=== PATIENT | male | born 1940 | race Caucasian/White ===

== ENCOUNTER 2020-04-09 14:08 | Outpatient (REF) | payer MEDICARE, BC, OTHER, SELFPAY ==
--- NOTE | 2020-04-09 | XR_ITS ---
EXAMINATION: XR CHEST 2 VIEWS CLINICAL INFORMATION: COPD COMPARISON: 03/30/2015 TECHNIQUE: PA and lateral radiographs of the chest. FINDINGS: The lungs are hyperinflated compatible with chronic obstructive pulmonary disease. No focal consolidation, pulmonary edema, or pleural effusion. Stable cardiomediastinal silhouette status post valve repair. IMPRESSION: COPD. No acute cardiopulmonary findings.
== END 2020-04-09 14:09 | disposition home or self-care (01) ==
LOC: HO.XRAY 14:08
PROVIDERS: PCP Internal Medicine Endocrinology, Diabetes & Metabolism; Visit Provider Internal Medicine Critical Care Medicine
DX: J44.9 Chronic obstructive pulmonary disease, unspecified (principal)
CPT/HCPCS: 71046

== ENCOUNTER 2021-07-13 13:54 | Outpatient (REF) | payer MEDICARE, BC, OTHER, SELFPAY | END 2021-07-13 13:55 | disposition home or self-care (01) | LOC: HO.HMGCLDS 13:54 | PROVIDERS: Visit Provider Internal Medicine | DX: Z20.822 Contact with and (suspected) exposure to COVID-19 (principal) | CPT/HCPCS: C9803; U0003; U0005 ==

== ENCOUNTER 2022-01-06 17:58 | Emergency (ER) | payer MEDICARE, BC, OTHER, SELFPAY ==
[2022-01-06 19:51] VITALS: BP 157/72; PULSE 66; RESP 18; TEMP 36.5; O2SAT 98; BMI 20.5
[2022-01-06 21:26] LABS: MANUAL DIFF FLAG NO
[2022-01-06 21:28] LABS: Basophils Absolute Auto 0.1 X10*3/uL (0.0-0.2); Basophils Percent Auto 0.6 % (0-2); Eosinophils Absolute Auto 0.3 X10*3/uL (0.0-0.4); Eosinophils Percent Auto 3.7 % (0-4); Hematocrit 44.7 % (42.0-52.0); Hemoglobin 14.8 g/dl (14.0-18.0); Imm Gran Abs Auto 0.03 X10*3/uL (0.00-0.03); Imm Gran Pct Auto 0.3 % (0.0-0.4); Lymphocytes Absolute Auto 2.6 X10*3/uL (1.2-4.9); Lymphocytes Percent Auto 29.5 % (20-40); Mean Corpuscular HGB Conc 33.1 g/dl (31.0-36.0); Mean Corpuscular Hemoglobin 29.5 pg (27.0-33.0); Mean Corpuscular Volume 89.2 fL (80.0-98.0); Mean Platelet Volume 10.4 fL (9.4-12.4); Monocytes Absolute Auto 0.8 X10*3/uL (0.1-1.2); Monocytes Percent Auto 9.2 % (2-11); Neutrophils Percent Auto 56.7 % (45-73); Platelet Count 166 X10*3/uL (160-400); Red Blood Count 5.01 X10*6/uL (4.60-5.80); Red Cell Distribution Width 14.8 % (11.0-16.0); White Blood Count 8.8 X10*3/uL (4.8-10.8)
[2022-01-06 21:52] LABS: Alanine Aminotransferase 19 U/L (0-40); Albumin Level 3.6 g/dL (3.5-5.0); Alkaline Phosphatase 132 U/L (39-117); Anion Gap 13 (12-20); Aspartate Amino Transferase 18 U/L (5-37); Bilirubin Total 0.6 mg/dL (0.0-1.0); Blood Urea Nitrogen 17 mg/dL (9-16); Calcium 8.6 mg/dL (8.4-10.2); Carbon Dioxide 27 mmol/L (22-29); Chloride 105 mmol/L (96-108); Creatinine Clr Calc Pharmacy 35.9; Estimated Glomerular Filt Rate 56; Glucose Random 89 mg/dL (60-115); Sodium 140 mmol/L (135-145); Total Protein 6.4 g/dL (6.5-8.0)
[2022-01-06 22:35] VITALS: BP 173/89; PULSE 68; RESP 17; TEMP 36.5; O2SAT 98
--- NOTE | 2022-01-06 23:15 | ED_ITS ---
HPI - Skin/Abscess/Foreign Bdy General Chief complaint: Skin/Abscess/Foreign Body Stated complaint: bump, infection right forearm Time Seen by Provider: 01/06/22 22:55 Source: patient Mode of arrival: ambulatory Limitations: no limitations History of Present Illness HPI narrative: Patient comes to the emergency room complaining of redness and a pimple like structure in his right forearm. Patient denies fever chills. Patient denies any injuries. Patient states that he has tried to drain it, he has seen small amounts of pus. Related Data Previous Rx's Medication Instructions Recorded cephalexin 500 mg capsule 500 mg PO BID #14 caps 01/06/22 doxycycline hyclate 100 mg capsule 100 mg PO BID #14 caps 01/06/22 Allergies Allergy/AdvReac Type Severity Reaction Status Date / Time SEASONAL ALLERGIES Allergy Unknown UNKNOWN Uncoded 03/26/20 14:59 Review of Systems Review of Systems: Constitutional : No Weight loss, No Fever, No Chills, No Night Sweats, No Fatigue, No Malaise ENT/Mouth : No Hearing loss, No Ear Pain, No Nasal Congestion, No Sinus Pain, No Hoarseness, No sore throat, No Rhinorrhea, No Swallowing Difficulty Eyes: No Eye Pain, No Swelling, No Redness, No Foreign Body, No Discharge, No Vision Changes Cardiovascular : No Chest Pain, No SOB, No Dyspnea on Exertion, No Orthopnea, No Edema, No Palpitations Respiratory : No Cough, No Sputum, No Wheezing, No Smoke Exposure, No Dyspnea Gastrointestinal : No Nausea, No Vomiting, No Diarrhea, No Constipation, No abdominal Pain, No Hematochezia, No Melena Genitourinary : no irregular bleeding, No Dysuria, No Urinary Frequency, No Hematuria, No Urinary Incontinence, No Urgency, No Flank Pain, No Urinary Flow Changes, No Hesitancy Musculoskeletal : No joint pain, No Myalgias, No Joint Swelling Skin : Patient has a small abscess in the right forearm Neuro : No Weakness, No Numbness, No Paresthesias, No Loss of Consciousness, No Dizziness, No Headache Psych : No Anxiety/Panic, No Depression, No SI/HI/AH/VH, No Social Issues, Heme/Lymph: No Bruising, No Bleeding,No Lymphadenopathy Endocrine : No Polyuria, No Polydipsia, No Temperature Intolerance PMFSH Social History Social History Advance Directives: No Advance Directives Information Provided: No Physical Exam Vital Signs: Vital Signs: Last Vital Signs Temp 97.7 F 01/06/22 22:35 Pulse 68 01/06/22 22:35 Resp 17 01/06/22 22:35 BP 173/89 H 01/06/22 22:35 Pulse Ox 98 01/06/22 22:35 O2 Del Method 01/06/22 22:35 BMI result Body Mass Index 20.5 Const: Other: Appearance: Alert. Oriented X3. No acute distress. Eyes: Pupils equal, round and reactive to light. ENT: Pharynx normal. Neck: Normal inspection. Neck supple. No lymph nodes noted. No crepitus CVS: Normal heart rate and rhythm. Pulses normal. Normal S1 and S2 Respiratory: No respiratory distress. Breath sounds normal. No Wheezing. No rales Abdomen: Soft and nontender. No rigidity. No distention. Skin: Skin warm and dry. Patient has 4 cm x 4 cm area of erythema, in the middle there is a 0.3 cm eschar Extremities: No lower extremity edema. No Lacerations. No Rash Neuro: Oriented X 3. No motor deficit. No sensory deficit. Moving all extremities. No slurred speech. CN 2 through 12 grossly intact Psych: calm, cooperative, normal affect Course Course Course Narrative: I discussed with the patient that he likely has a small abscess developing. Patient decided to have the abscess unroofed without any lidocaine. Small amount of pus was extracted. Patient was given 1 dose of doxycycline and K eflex. Patient has no fever or chills. Labs were obtained on arrival at triage, white blood cell count within normal limits. Sepsis not suspected. MDM - Skin/Abscess/Foreign Bdy Lab Data Result diagrams: 01/06/22 21:11 01/06/22 21:11 Labs: Lab Results 01/06/22 01/06/22 Range/Units 21:11 21:11 WBC 8.8 (4.8-10.8) X10*3/uL RBC 5.01 (4.60-5.80) X10*6/uL Hgb 14.8 (14.0-18.0) g/dl Hct 44.7 (42.0-52.0) % MCV 89.2 (80.0-98.0) fL MCH 29.5 (27.0-33.0) pg MCHC 33.1 (31.0-36.0) g/dl RDW 14.8 (11.0-16.0) % Plt Count 166 (160-400) X10*3/uL MPV 10.4 (9.4-12.4) fL Immature Gran % (Auto) 0.3 (0.0-0.4) % Neut % (Auto) 56.7 (45-73) % Lymph % (Auto) 29.5 (20-40) % Bradford % (Auto) 9.2 (2-11) % Eos % (Auto) 3.7 (0-4) % Baso % (Auto) 0.6 (0-2) % Lymph # (Auto) 2.6 (1.2-4.9) X10*3/uL Bradford # (Auto) 0.8 (0.1-1.2) X10*3/uL Eos # (Auto) 0.3 (0.0-0.4) X10*3/uL Baso # (Auto) 0.1 (0.0-0.2) X10*3/uL Abs Immat Gran (auto) 0.03 (0.00-0.03) X10*3/uL Absolute Neuts (auto) 5.0 (2.0-8.3) x10*3/uL Absolute Nucleated RBC 0.000 (0.0-0.012) X10*3/uL Nucleated RBC % (auto) 0.0 (0.0-0.2) /100WBC Sodium 140 (135-145) mmol/L Potassium 5.0 (3.3-5.1) mmol/L Chloride 105 (96-108) mmol/L Carbon Dioxide 27 (22-29) mmol/L Anion Gap 13 (12-20) BUN 17 H (9-16) mg/dL Creatinine 1.24 (0.5-1.4) mg/dL Estim Creat Clear Calc 35.9 Estimated GFR 56 Random Glucose 89 (60-115) mg/dL Calcium 8.6 (8.4-10.2) mg/dL Total Bilirubin 0.6 (0.0-1.0) mg/dL AST 18 (5-37) U/L ALT 19 (0-40) U/L Alkaline Phosphatase 132 H (39-117) U/L Total Protein 6.4 L (6.5-8.0) g/dL Albumin 3.6 (3.5-5.0) g/dL Discharge Plan Discharge Clinical Impression: Abscess of skin or subcutaneous tissue Patient Disposition: Home, Self-Care Instructions: Abscess (ED) Additional Instructions: Please follow-up with your primary care physician tomorrow. If you have any worsening or new symptoms, please return to the emergency room or call 911 Prescriptions: New cephalexin 500 mg capsule 500 mg PO BID Qty: 14 0RF doxycycline hyclate 100 mg capsule 100 mg PO BID Qty: 14 0RF
[2022-01-06] MEDS: cephALEXin 500 MG CAPSULE PO (23:36)
== END 2022-01-06 23:40 | disposition home or self-care (01) ==
PROVIDERS: Emergency Provider Emergency Medicine; PCP Internal Medicine Endocrinology, Diabetes & Metabolism
DX: L02.413 Cutaneous abscess of right upper limb (principal)
CPT/HCPCS: 36415; 80053; 85025; 99282; 99283

== ENCOUNTER 2023-04-25 20:25 | Emergency (ER) | payer MEDICARE, BC, OTHER, SELFPAY ==
[2023-04-25 20:39] VITALS: BP 143/83; PULSE 110; RESP 20; TEMP 36.3; O2SAT 93; BMI 19.1
--- NOTE | 2023-04-25 20:44 | ED_ITS ---
HPI - General Adult General Chief complaint: General Medical Stated complaint: Multiple complaints Time Seen by Provider: 04/25/23 23:14 Source: patient Mode of arrival: ambulatory Limitations: no limitations History of Present Illness HPI narrative: Patient with no significant past medical history been constipated for last 1 week and not eating much also has problem in urination for last couple of weeks in the ER patient had a good bowel movement but still has problem urinating bladder scan was done which showed 600 cc of urine but patient would not only 30 cc no significant abdominal pain no fever no chills no flank pain Related Data Previous Rx's Medication Instructions Recorded cephalexin 500 mg capsule 500 mg PO BID #14 caps 01/06/22 doxycycline hyclate 100 mg capsule 100 mg PO BID #14 caps 01/06/22 tamsulosin 0.4 mg capsule (Flomax) 0.4 mg PO BEDTIME #30 caps 04/26/23 Allergies Allergy/AdvReac Type Severity Reaction Status Date / Time SEASONAL ALLERGIES Allergy Unknown UNKNOWN Uncoded 03/26/20 14:59 Review of Systems 2 Review of Systems: Yes all other systems are reviewed and are negative [facility] Social History Social History Advance Directives: No Advance Directives Information Provided: No Physical Exam ED Vital Signs: Vital Signs - 24 hr 04/25/23 20:39 04/25/23 23:37 Temperature 97.3 F 98.3 F Pulse Rate 110 H 81 Respiratory Rate 20 18 Blood Pressure 143/83 H 136/73 Pulse Oximetry 93 99 Oxygen Delivery Method Room Air Room Air BMI result Body Mass Index 19.1 Appearance: Alert. Oriented X3. No acute distress. Eyes: PERRLA, No Nystagmus ENT: Pharynx normal. Oral Mucosa moist Neck: Normal inspection. Neck supple. CVS: Normal heart rate and rhythm. Pulses normal. Respiratory: No respiratory distress. Equal air entry bilateral, no wheezing/rales/rhonchi Abdomen: Soft and nontender. Bowel sounds are present, no mass palpable, no CVA tenderness rectal: Enlarged nontender prostate Skin: Skin warm and dry. Normal skin color. Normal skin turgor. Extremities: No lower extremity edema. No calf tenderness Neuro: Oriented X 3. No motor deficit. No sensory deficit.No cerebellar signs , cranial nerves II-XII intact Course Course Course Narrative: This is an RME: Additional HPI, ROS, PE not included below will be deferred to primary provider. 82 year old male presents w./ inability to void X 1 week suprapubic abd discomfort and rash in genital region. Was tx for rash not gone yet. Reports fatigue and maliase. No fever, chills, cp, sob Plan- labs, urine Medications Administered Discontinued Medications Generic Name Dose Route Start Last Admin Trade Name Freq PRN Reason Stop Dose Admin Lidocaine HCl 10 ml 04/26/23 00:50 04/26/23 00:59 Lidocaine Hcl 2 % Urojet 10 Ml Jel.Pf.Christen TOPICAL 04/26/23 00:51 10 ml ONCE ONE Administration Tamsulosin HCl 0.4 mg 04/26/23 00:33 04/26/23 00:59 Tamsulosin Hcl 0.4 Mg Capsule PO 04/26/23 00:34 0.4 mg ONCE ONE Administration Procedures Catheter Insertion (Urinary) Date of insertion: 04/26/23 Time of insertion: 01:30 Reason for placing indwelling catheter: Acute urinary retention Bladder scan/ultrasound used before catheterization: Yes Estimated amount of urine (mLs): 600 Antiseptic solution prep: Povidone-Iodine Topical anesthesia used: Yes Catheter type/location: Urethral Size (Croatian): 18 Catheter balloon size (mL): 10 Catheter balloon amount: 10 Results: successfully catheterized-immediate flow and other (Guidewire was used to assist with placement of Renae catheter) Procedure performed: with complications Complications: Minor bleed Comment: 800 cc of urine drained Medical Decision Making Medical Decision Making [facility] Narrative: Patient had a good bowel movement in the ER retaining urine more than [address] Renae catheter Differential Diagnosis Differential Diagnoses: The differential diagnosis associated with the presentation includes Urinary retention/BPH/prostatitis/UTI Lab Data [facility] Lab Attestation statement: I reviewed the patient's lab results. 04/25/23 23:29 04/25/23 23:29 Labs: Lab Results 04/25/23 04/26/23 Range/Units 23:29 00:35 WBC 8.4 (4.8-10.8) X10*3/uL RBC 5.29 (4.60-5.80) X10*6/uL Hgb 15.3 (14.0-18.0) g/dl Hct 45.7 (42.0-52.0) % MCV 86.4 (80.0-98.0) fL MCH 28.9 (27.0-33.0) pg MCHC 33.5 (31.0-36.0) g/dl RDW 13.9 (11.0-16.0) % Plt Count 248 D (160-400) X10*3/uL MPV 9.0 L (9.4-12.4) fL Immature Gran % (Auto) 0.2 (0.0-0.4) % Neut % (Auto) 69.2 (45-73) % Lymph % (Auto) 22.4 (20-40) % Giles % (Auto) 7.3 (2-11) % Eos % (Auto) 0.2 (0-4) % Baso % (Auto) 0.7 (0-2) % Lymph # (Auto) 1.9 (1.2-4.9) X10*3/uL Giles # (Auto) 0.6 (0.1-1.2) X10*3/uL Eos # (Auto) 0.0 (0.0-0.4) X10*3/uL Baso # (Auto) 0.1 (0.0-0.2) X10*3/uL Abs Immat Gran (auto) 0.02 (0.00-0.03) X10*3/uL Absolute Neuts (auto) 5.8 (2.0-8.3) x10*3/uL Absolute Nucleated RBC 0.000 (0.0-0.012) X10*3/uL Nucleated RBC % (auto) 0.0 (0.0-0.2) /100WBC Sodium 139 (135-145) mmol/L Potassium 4.2 (3.3-5.1) mmol/L Chloride 103 (96-108) mmol/L Carbon Dioxide 26 (22-29) mmol/L Anion Gap 14 (12-20) BUN 32 H (9-16) mg/dL Creatinine 1.35 (0.5-1.4) mg/dL Estim Creat Clear Calc 31.1 Estimated GFR 51 Random Glucose 125 H (60-115) mg/dL Calcium 9.1 (8.4-10.2) mg/dL Total Bilirubin 0.6 (0.0-1.0) mg/dL AST 18 (5-37) U/L ALT 18 (0-40) U/L Alkaline Phosphatase 109 (39-117) U/L Total Protein 6.5 (6.5-8.0) g/dL Albumin 3.3 L (3.5-5.0) g/dL Lipase 50 (8-78) U/L Urine Color Yellow Urine Appearance Clear Urine pH 5.5 (5.0-9.0) Ur Specific Mcintire 1.020 (1.005-1.025) Urine Protein Trace (Neg-Trace) mg/dL Urine Glucose (UA) Negative (Negative) mg/dL Urine Ketones Negative (Negative) mg/dL Urine Blood Negative (Negative) Urine Nitrite Negative (Negative) Ur Leukocyte Esterase Trace H (Negative) Urine RBC 0-2 (0-2) /HPF Urine WBC 0-5 (0-5) /HPF Ur Squamous Epith Cells 0-2 (0-2) /HPF Urine Bacteria None Seen (None Seen) Hyaline Casts 3-5 (0-2) /LPF COVID-19 (GURJIT) Negative (Negative) COVID-19 Clin Com See Note Discharge Plan Discharge Clinical Impression: Acute urinary retention, Benign prostatic hyperplasia Patient Disposition: Home, Self-Care Instructions: Enlarged Prostate (BPH) (ED), Renae Catheter Placement and Care (ED) Additional Instructions: Care of Renae catheter as advised Medication for per enlarged prostate daily Follow-up with urologist Prescriptions: New tamsulosin [Flomax] 0.4 mg capsule 0.4 mg PO BEDTIME Qty: 30 0RF No Action cephalexin 500 mg capsule 500 mg PO BID Qty: 14 0RF doxycycline hyclate 100 mg capsule 100 mg PO BID Qty: 14 0RF Referrals: Rainer Pardo MD [Physician] - 1 week
[2023-04-25 23:34] LABS: Basophils Absolute Auto 0.1 X10*3/uL (0.0-0.2); Basophils Percent Auto 0.7 % (0-2); Eosinophils Percent Auto 0.2 % (0-4); Hematocrit 45.7 % (42.0-52.0); Hemoglobin 15.3 g/dl (14.0-18.0); Imm Gran Abs Auto 0.02 X10*3/uL (0.00-0.03); Imm Gran Pct Auto 0.2 % (0.0-0.4); Lymphocytes Absolute Auto 1.9 X10*3/uL (1.2-4.9); Lymphocytes Percent Auto 22.4 % (20-40); Mean Corpuscular HGB Conc 33.5 g/dl (31.0-36.0); Mean Corpuscular Hemoglobin 28.9 pg (27.0-33.0); Mean Corpuscular Volume 86.4 fL (80.0-98.0); Monocytes Absolute Auto 0.6 X10*3/uL (0.1-1.2); Monocytes Percent Auto 7.3 % (2-11); Neutrophils Absolute Auto 5.8 x10*3/uL (2.0-8.3); Neutrophils Percent Auto 69.2 % (45-73); Platelet Count 248 X10*3/uL (160-400); Red Blood Count 5.29 X10*6/uL (4.60-5.80); Red Cell Distribution Width 13.9 % (11.0-16.0); White Blood Count 8.4 X10*3/uL (4.8-10.8)
[2023-04-25 23:35] LABS: MANUAL DIFF FLAG NO
[2023-04-25 23:37] VITALS: BP 136/73; PULSE 81; RESP 18; TEMP 36.8; O2SAT 99
[2023-04-25 23:48] LABS: Alanine Aminotransferase 18 U/L (0-40); Albumin Level 3.3 g/dL (3.5-5.0); Alkaline Phosphatase 109 U/L (39-117); Anion Gap 14 (12-20); Aspartate Amino Transferase 18 U/L (5-37); Bilirubin Total 0.6 mg/dL (0.0-1.0); Blood Urea Nitrogen 32 mg/dL (9-16); COVID-19 Test Negative (Negative); Calcium 9.1 mg/dL (8.4-10.2); Carbon Dioxide 26 mmol/L (22-29); Chloride 103 mmol/L (96-108); Creatinine Clr Calc Pharmacy 31.1; Estimated Glomerular Filt Rate 51; Glucose Random 125 mg/dL (60-115); IDNOW Serial# BCCEAD1C; Lipase 50 U/L (8-78); Potassium 4.2 mmol/L (3.3-5.1); Sodium 139 mmol/L (135-145); Total Protein 6.5 g/dL (6.5-8.0)
[2023-04-26 00:44] LABS: Appearance Urine Clear; Color Urine Yellow; Glucose Urine UA Negative (Negative); Leukocyte Esterase Urine Trace (Negative); Nitrite Urine Negative (Negative); PH 5.5 (5.0-9.0); UMIC TRIGGER UACC YES; Urine Blood Negative (Negative); Urine Ketones Negative (Negative); Urine Protein Trace mg/dL (Neg-Trace)
[2023-04-26 00:49] LABS: Bacteria Urine None Seen (None Seen); RBC Urine 0-2 /HPF (0-2); Squamous Epithelial Cell Urine 0-2 /HPF (0-2); WBC Urine 0-5 /HPF (0-5)
[2023-04-26] MEDS: Tamsulosin HCL 0.4 MG CAPSULE PO (00:59)
[2023-04-26] MEDS: Lidocaine HCl 2 % Urojet 10 ML JEL.PF.APP TOPICAL (00:59)
--- NOTE | 2023-04-26 01:21 | PC.NURSE ---
unable instill leyva cath. Dr. ramírez
--- NOTE | 2023-04-26 01:36 | PC.NURSE ---
leyva cath placed by Dr. Duval
--- NOTE | 2023-04-26 02:40 | PC.NURSE ---
pt tolerating leyva cath
== END 2023-04-26 03:03 | disposition home or self-care (01) ==
PROVIDERS: Physician Assistant; Emergency Provider Internal Medicine; PCP Internal Medicine Endocrinology, Diabetes & Metabolism
DX: R33.9 Retention of urine, unspecified (principal); N40.0 Benign prostatic hyperplasia without lower urinary tract symptoms; Z11.52 Encounter for screening for COVID-19
CPT/HCPCS: 51702; 51798; 80053; 81001; 83690; 85025; 87635; 99283; 99284

== ENCOUNTER 2023-05-10 08:41 | Outpatient (AMB) | payer MEDICARE, BC, OTHER, SELFPAY ==
--- NOTE | 2023-05-10 08:44 | A.OFFVIS_ITS ---
Intake Intake Visit Reasons: Voiding trial Intake Note: New Patient presents for initial visit for voiding trial/retention Urology Medications: tamsulosin Blood Thinner:none Brake Press Operator Required: No Accompanied by: Unknown Allergies SEASONAL ALLERGIES Allergy (Unknown, Uncoded 05/10/23 09:14) UNKNOWN Medication List - Last Reconciled 05/10/23 by ALICIA Sawyer- albuterol sulfate 90 mcg/actuation inhalation albuterol sulfate mg inhalation aspirin 81 mg PO DAILY atorvastatin 40 mg PO DAILY lscdwwbzfhc-cxzvspsqf-evudkjlv 100-62.5-25 mcg (Trelegy Ellipta) 1 ea inhalation DAILY lisinopril 10 mg PO DAILY tamsulosin (Flomax) 0.4 mg PO BEDTIME umeclidinium-vilanterol 62.5-25 mcg/actuation (Anoro Ellipta) 1 ea inhalation DAILY HPI HPI Comments History of Present Illness Details Romel is a very pleasant 83-year-old male patient of Dr. Oneil who was accompanied by his daughter at today's office visit. As past medical history of COPD and hypercholesteremia. He presents to the office today as a new patient for urinary retention. In discussion with the patient today reports to be doing and feeling well. He reports approximately 2 weeks ago seeking emergency room care for constipation and being unable to urinate at which time the patient was noted to have 600 mL of urine in his bladder. Renae was placed in the emergency room and recommendations were made for outpatient urology follow-up. When asked patient denies any previous issues with his urination. He reports up until 2-3 weeks ago he had been urinating with no issues. He discusses difficult Renae insertion with multiple attempts and a wire needing to be inserted. He reports compliance with tamsulosin 0.4 mg at bedtime this was started after his ER visit for urinary retention. Discussed correlation of constipation with urinary retention. Patient reports since starting MiraLax he has had bowel movements daily In office voiding trial performed Patient was able to urinate on his own. Discussed at length potential causes for urinary retention. Discussed obtaining retroperitoneal ultrasound for further assessment evaluation. Discussed obtaining PSA in the near future due to recent Renae catheter. Discussed near future in office cystoscopy given history of urinary retention. All questions were answered. Discussed, educated, encouraged on the importance of drinking plenty of water daily. Review of Systems Eyes Reports no additional complaints ENT Reports no additional complaints Card Reports as per HPI Resp Reports as per HPI GI Reports as per HPI Reports as per HPI Musc Reports no additional complaints Neuro Reports no additional complaints Psych Reports no additional complaints Endo Reports no additional complaints Amrit/Lymph Reports no additional complaints Aller/Immun Reports no additional complaints Physical Exam Const General: cooperative, comfortable, no acute distress, well developed, alert and awake Nutritional Appearance: thin Orientation/consciousness: patient oriented x3 Limitations: no limitations HEENT Head: Yes normal to inspection, Yes normocephalic and Yes atraumatic Ears: hearing grossly normal bilaterally Eyes General: appearance normal, both eyes and all related structures Neck Neck: Yes normal visual inspection and Yes trachea midline Chest Chest palpation & inspection: normal inspection of the chest Resp Effort & Inspection: normal respiratory effort and able to speak in complete sentences Cardio Rate: regular rate GI Inspection: Yes normal to inspection General: Yes no CVA tenderness Back/Spine/Pelvis Back: no CVA tenderness Skin General skin exam: no rashes or lesions noted Neuro General: patient oriented x3 Extrem General: Yes normal to inspection Psych Appearance: grossly normal and well kempt Mental Status: mental status grossly normal Speech and movement: Normal speech and movement present and Clear speech present Affect: normal affect Attitude: cooperative Thought process: Normal thought process present Thought content: Normal thought content present Insight: Fair insight present (Psych) Judgement: Fair judgement present (Psych) Office Procedures Bladder/Catheter Procedure Details: 120 mls sterile water instilled into bladder, 18 fr cath removed, pt tolerated removal well. MA to bladder scan. [id number] of Bladder Procedure code (CPT) selection complete Assessment & Plan Assessment & Plan (1) Urinary retention: Code(s): R33.9 - Retention of urine, unspecified (2) Lower urinary tract symptoms: Code(s): R39.9 - Unspecified symptoms and signs involving the genitourinary system Plan In office voiding trial performed; patient was able to urinate on his own Discussed at length potential causes for urinary retention Discussed importance of avoiding constipation if possible in correlation to constipation and urinary retention. Discussed, educated, and instructed on the importance of drinking plenty of water daily. Discussed obtaining retroperitoneal ultrasound for further assessment evaluation. Continue Flomax as discussed and prescribed. Start finasteride 5 mg daily as discussed and prescribed. Discussed obtaining PSA in the near future given recent Renae catheter insertion. Discussed near future in office cystoscopy given history of retention. Follow-up in 1-2 months with imaging to be completed prior; or sooner with any issues, concerns, and or questions. Orders: Orders US retroperitoneal comp Today R33.9 - Retention of urine, unspecified AMB Bladder/Catheter Procedure Today R33.8 - Other retention of urine Medications: New finasteride 5 mg PO DAILY 90 days 90 tabs 1RF N13.8 - Other obstructive and reflux uropathy, N40.1 - Benign prostatic hyperplasia with lower urinary tract symptoms, R33.9 - Retention of urine, unspecified Patient Instructions: The patient had an opportunity to ask questions regarding the treatment plan. All questions were answered. Physical exam, labs, and imaging were discussed and reviewed in detail. As well as risks, benefits, and discussion of treatment choices. No major barriers to understanding were identified. The patient expressed understanding and agreement with the above treatment plan. The patient was made aware they should contact our office by phone for worsening of their current condition, the appearance of new symptoms, or with any questions or concerns. Compliance is encouraged with any medications and follow up testing that is ordered. It is a privilege to be allowed the opportunity to participate in? your urological care.? Again, if you have any questions or concerns If you have any questions or concerns please do not hesitate to contact me. The office is [phone]. This note is constructed using voice recognition software. While every effort has been made to ensure accuracy factory expert errors may have been included. Yours sincerely, JAMEY Sawyer Coding Level of Care Code New Pt Level 4 (66972) Diagnoses Urinary retention R33.9 Lower urinary tract symptoms R39.9 CPT Codes Bladder/Catheter Procedure - CPT: 20484-[id number] of Bladder ([id number])
== END 2023-05-10 09:37 | disposition home or self-care (01) ==
PROVIDERS: PCP Internal Medicine Endocrinology, Diabetes & Metabolism; Visit Provider Nurse Practitioner Family
DX: R33.9 Retention of urine, unspecified (principal); R39.9 Unspecified symptoms and signs involving the genitourinary system
CPT/HCPCS: 51700; 99204

== ENCOUNTER → 2023-05-10 08:41 | Outpatient (BNVA) | payer MEDICARE, BC, OTHER, SELFPAY | PROVIDERS: PCP Internal Medicine Endocrinology, Diabetes & Metabolism; Visit Provider Nurse Practitioner Family | DX: N40.1 Benign prostatic hyperplasia with lower urinary tract symptoms (principal); N13.8 Other obstructive and reflux uropathy; R33.8 Other retention of urine; R39.9 Unspecified symptoms and signs involving the genitourinary system; Z79.899 Other long term (current) drug therapy | CPT/HCPCS: 51700; 99202 ==

== ENCOUNTER 2023-06-19 13:33 | Outpatient (REF) | payer MEDICARE, BC, OTHER, SELFPAY ==
--- NOTE | ~2023-06-19 | US_ITS ---
EXAMINATION: US RETROPERITONEAL COMPLETE (RENAL) CLINICAL INFORMATION: Retention of urine, unspecified. COMPARISON: None available. TECHNIQUE: Real-time imaging of the kidneys and bladder. Limited visualization due to bowel gas. FINDINGS: RIGHT KIDNEY: 11.4 x 5.0 x 5.4 cm (SAG x AP x TRV). Mild hydronephrosis with proximal hydroureter. Limited visualization. There are 2 lower pole 0.6 cm cysts. No renal calculi. LEFT KIDNEY: 16.3 x 8.7 x 6.1 cm (SAG x AP x TRV). Severe hydronephrosis with proximal to mid hydroureter. No renal calculi. Limited visualization. BLADDER: Well-distended. Complex mobile debris within the bladder. Bladder wall appears trabeculated and thickened. Bilateral ureteral jets are demonstrated. Prevoid bladder volume is 287 mL. Postvoid bladder volume is 120 mL. ADDITIONAL FINDINGS: Enlarged prostate with volume 47.5 ml. The measurements of the aorta in maximum AP and transverse dimensions respectively are as follows: Proximal: 2.5 x 2.0 cm. Mid: 2.7 x 2.7 cm. Distal: 4.0 x 4.3 cm. Distal abdominal aortic aneurysm with atherosclerotic plaque and lumen diameter of 2.7 cm x 3.5 cm. PSV: 85.6 cm/sec The measurements of the common iliac arteries in maximum dimensions are as follows: Right: AP: 2.1 cm. TRV: 2.0 cm. Left: AP: 2.4 cm. TRV: 2.6 cm. US/US retroperitoneal comp IMPRESSION: 1. 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 Atherosclerosis. 2. Complex material within the bladder characteristic of debris. Diffuse trabeculation with thickening of the bladder wall. 3. Enlarged prostate with volume 47.5 mL. 4. Mild right hydronephrosis with proximal right hydroureter. No renal calculi identified. 5. Severe left hydronephrosis with proximal to mid hydroureter. No renal calculi identified. 6. Limited visualization due to bowel gas. This study was presented today June 21, 2023 at 6:00 AM for interpretation. PSA staff will provide results to referring provider at this time.
== END 2023-06-19 13:34 | disposition home or self-care (01) ==
LOC: HO.US 13:33
PROVIDERS: Visit Provider Nurse Practitioner Family
DX: R33.9 Retention of urine, unspecified (principal)
CPT/HCPCS: 76770

== ENCOUNTER 2023-06-22 13:48 | Outpatient (AMB) | payer MEDICARE, BC, OTHER, SELFPAY ==
--- NOTE | 2023-06-22 13:51 | A.OFFVIS_ITS ---
Intake Intake Visit Reasons: 6w/US/PVR(set) Intake Note: Patient presents for follow up visit for retention/pvr Urology Medications: tamsulosin Blood Thinner:none PVR: 139ml's Sausage Tier Required: No Accompanied by: Self / Same As Patient Allergies SEASONAL ALLERGIES Allergy (Unknown, Uncoded 06/22/23 14:13) UNKNOWN Medication List - Last Reconciled 06/22/23 by GWENDOLYN SawyerP- albuterol sulfate 90 mcg/actuation inhalation albuterol sulfate mg inhalation aspirin 81 mg PO DAILY atorvastatin 40 mg PO DAILY finasteride 5 mg PO DAILY 90 days fluticasone furoate-vilanterol 100-25 mcg/dose inhalation lisinopril 10 mg PO DAILY tamsulosin (Flomax) 0.4 mg PO BEDTIME umeclidinium-vilanterol 62.5-25 mcg/actuation (Anoro Ellipta) 1 ea inhalation DAILY HPI HPI Comments History of Present Illness Details Romel is a very pleasant 83-year-old male patient of Dr. Oneil. He has a past medical history of COPD and hypercholesteremia. He presents to the office today for a follow up of his recent episode of urinary retention which required Renae placement in [facility]. Of note, patient was seen approximately 1 month ago at which time a retroperitoneal ultrasound was ordered for further assessment evaluation. These results were reviewed with the patient today. Right kidney with mild hydronephrosis with proximal hydroureter. Limited visualization. There are 2 lower pole 0.6 cm cyst. No renal calculi. Left kidney with severe hydronephrosis with proximal to mid hydroureter. No renal calculi. Limited visualization. The bladder is well distended. Complex mobile debris within the bladder. Bladder wall appears trabeculated and thickened. Bilateral ureteral jets are demonstrated. Pre void bladder volume is approximately 300 mL. Postvoid bladder volume is approximately 120 mL. Enlarged prostate with a volume of 47 mL. When asked patient denies any bothersome urinary issues or concerns. He reports feeling urinary retention was related to his constipation. He reports to be compliant with bowel regimen and has been defecating at least every other day. Discussed at length findings of retroperitoneal ultrasound. Discussed obtaining further workup with CT urogram. In review of patient's chart it appears 05/01 BUN--32 and creatinine--1.35. He reports compliance with 0.4 mg of Flomax daily as well as 5 mg of finasteride. Unable to obtain urine for urinalysis today PVR 139 mL. Discussed at length causes and affects of incomplete bladder emptying. When asked he denies urinary urgency, urinary frequency, incontinence, nocturia, hematuria, dysuria, foul smelling urine, changes to urinary stream, flank pain, fever, and or chills. He is happy with his current voiding parameters. Review of Systems Eyes Reports no additional complaints ENT Reports no additional complaints Card Reports as per HPI Resp Reports as per HPI GI Reports as per HPI Reports as per HPI Musc Reports no additional complaints Neuro Reports no additional complaints Psych Reports no additional complaints Endo Reports no additional complaints Amrit/Lymph Reports no additional complaints Aller/Immun Reports no additional complaints Physical Exam Const General: cooperative, comfortable, no acute distress, well developed, alert and awake Nutritional Appearance: thin Orientation/consciousness: patient oriented x3 Limitations: no limitations HEENT Head: Yes normal to inspection, Yes normocephalic and Yes atraumatic Ears: hearing grossly normal bilaterally Eyes General: appearance normal, both eyes and all related structures Neck Neck: Yes normal visual inspection and Yes trachea midline Chest Chest palpation & inspection: normal inspection of the chest Resp Effort & Inspection: normal respiratory effort and able to speak in complete sentences Cardio Rate: regular rate GI Inspection: Yes normal to inspection General: Yes no CVA tenderness Back/Spine/Pelvis Back: no CVA tenderness Skin General skin exam: no rashes or lesions noted Neuro General: patient oriented x3 Extrem General: Yes normal to inspection Psych Appearance: grossly normal and well kempt Mental Status: mental status grossly normal Speech and movement: Normal speech and movement present and Clear speech present Affect: normal affect Attitude: cooperative Thought process: Normal thought process present Thought content: Normal thought content present Insight: Fair insight present (Psych) Judgement: Fair judgement present (Psych) Results Reviewed Results Reviewed: Date of Service: 06/19/23 EXAMINATION: US RETROPERITONEAL COMPLETE (RENAL) FINDINGS: RIGHT KIDNEY: 11.4 x 5.0 x 5.4 cm (SAG x AP x TRV). Mild hydronephrosis with proximal hydroureter. Limited visualization. There are 2 lower pole 0.6 cm cysts. No renal calculi. LEFT KIDNEY: 16.3 x 8.7 x 6.1 cm (SAG x AP x TRV). Severe hydronephrosis with proximal to mid hydroureter. No renal calculi. Limited visualization. BLADDER: Well-distended. Complex mobile debris within the bladder. Bladder wall appears trabeculated and thickened. Bilateral ureteral jets are demonstrated. Prevoid bladder volume is 287 mL. Postvoid bladder volume is 120 mL. ADDITIONAL FINDINGS: Enlarged prostate with volume 47.5 ml. The measurements of the aorta in maximum AP and transverse dimensions respectively are as follows: Proximal: 2.5 x 2.0 cm. Mid: 2.7 x 2.7 cm. Distal: 4.0 x 4.3 cm. Distal abdominal aortic aneurysm with atherosclerotic plaque and lumen diameter of 2.7 cm x 3.5 cm. PSV: 85.6 cm/sec The measurements of the common iliac arteries in maximum dimensions are as follows: Right: AP: 2.1 cm. TRV: 2.0 cm. Left: AP: 2.4 cm. TRV: 2.6 cm. IMPRESSION: 1. 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 Atherosclerosis. 2. Complex material within the bladder characteristic of debris. Diffuse trabeculation with thickening of the bladder wall. 3. Enlarged prostate with volume 47.5 mL. 4. Mild right hydronephrosis with proximal right hydroureter. No renal calculi identified. 5. Severe left hydronephrosis with proximal to mid hydroureter. No renal calculi identified. 6. Limited visualization due to bowel gas. Assessment & Plan Assessment & Plan (1) Lower urinary tract symptoms: Code(s): R39.9 - Unspecified symptoms and signs involving the genitourinary system (2) Urinary retention: Code(s): R33.9 - Retention of urine, unspecified (3) Incomplete bladder emptying: Code(s): R33.9 - Retention of urine, unspecified (4) Hydronephrosis: Code(s): N13.30 - Unspecified hydronephrosis (5) Bladder wall thickening: Code(s): N32.89 - Other specified disorders of bladder (6) Bladder trabeculation: Code(s): N32.89 - Other specified disorders of bladder (7) Enlarged prostate: Code(s): N40.0 - Benign prostatic hyperplasia without lower urinary tract symptoms Plan Unable to obtain urine for urinalysis as patient unable to void however PVR 139ml's. Discussed recent retroperitoneal ultrasound results with the patient today as noted above. Discussed aortic aneurysm findings on retroperitoneal ultrasound; discussed refer to vascular for further assessment evaluation however patient declines at this time; he will discuss with PCP. Will obtain CT urogram for further assessment evaluation of noted findings on ultrasound of hydronephrosis. Will obtain BUN and creatinine for imaging as well as PSA for further assessment evaluation. Continue finasteride daily. Stop Flomax. Start 5 mg of terazosin daily. Discussed at length causes and affects of incomplete bladder emptying Discussed possible near future in office cystoscopy for further assessment evaluation. Follow-up in 4-6 weeks with imaging to be completed prior; or sooner with any issues, concerns, and or questions. Orders: Orders Blood Urea Nitrogen Today R39.15 - Urgency of urination AMB Post Void Residual by ultrasound Today R33.9 - Retention of urine, unspecified CT urogram Today R31.0 - Gross hematuria Creatinine Today R39.15 - Urgency of urination Prostate Specific Antigen Today R33.9 - Retention of urine, unspecified Medications: New terazosin 5 mg PO BEDTIME 30 days 30 caps 1RF N40.1 - Benign prostatic hyperplasia with lower urinary tract symptoms, R35.0 - Frequency of micturition Refilled finasteride 5 mg PO DAILY 90 tabs 1RF 90 days N13.8 - Other obstructive and reflux uropathy, N40.1 - Benign prostatic hyperplasia with lower urinary tract symptoms, R33.9 - Retention of urine, unspecified Discontinued tamsulosin (Flomax) Discontinued Reason: Doctor's Order 0.4 mg PO BEDTIME 30 caps 0RF Patient Instructions: The patient had an opportunity to ask questions regarding the treatment plan. All questions were answered. Physical exam, labs, and imaging were discussed and reviewed in detail. As well as risks, benefits, and discussion of treatment choices. No major barriers to understanding were identified. The patient expressed understanding and agreement with the above treatment plan. The patient was made aware they should contact our office by phone for worsening of their current condition, the appearance of new symptoms, or with any questions or concerns. Compliance is encouraged with any medications and follow up testing that is ordered. It is a privilege to be allowed the opportunity to participate in? your urological care.? Again, if you have any questions or concerns If you have any questions or concerns please do not hesitate to contact me. The office is [phone]. This note is constructed using voice recognition software. While every effort has been made to ensure accuracy veneer supervisor errors may have been included. Yours sincerely, ALICIA Sawyer-STEFFEN Coding Level of Care Code Est Pt Level 4 (55295) Diagnoses Lower urinary tract symptoms R39.9 Urinary retention R33.9 Incomplete bladder emptying R33.9 Hydronephrosis N13.30 Bladder wall thickening N32.89 Bladder trabeculation N32.89 Enlarged prostate N40.0
== END 2023-06-22 14:24 | disposition home or self-care (01) ==
PROVIDERS: PCP Internal Medicine Endocrinology, Diabetes & Metabolism; Visit Provider Nurse Practitioner Family
DX: R39.9 Unspecified symptoms and signs involving the genitourinary system (principal); R33.9 Retention of urine, unspecified; N13.30 Unspecified hydronephrosis; N32.89 Other specified disorders of bladder; N40.0 Benign prostatic hyperplasia without lower urinary tract symptoms
CPT/HCPCS: 99214

== ENCOUNTER → 2023-06-22 13:48 | Outpatient (BNVA) | payer MEDICARE, BC, OTHER, SELFPAY | PROVIDERS: PCP Internal Medicine Endocrinology, Diabetes & Metabolism; Visit Provider Nurse Practitioner Family | DX: R39.9 Unspecified symptoms and signs involving the genitourinary system (principal); R33.9 Retention of urine, unspecified; N13.30 Unspecified hydronephrosis; N32.89 Other specified disorders of bladder; N40.0 Benign prostatic hyperplasia without lower urinary tract symptoms | CPT/HCPCS: 99212 ==

== ENCOUNTER 2023-07-13 14:45 | Emergency (ER) | payer MEDICARE, BC, OTHER, SELFPAY ==
[2023-07-13 15:25] VITALS: BP 133/64; PULSE 85; RESP 16; TEMP 36.7; O2SAT 95; BMI 18.3
--- NOTE | 2023-07-13 15:38 | ED.GENADULT ---
HPI - General Adult General Chief complaint: Extremity Problem Stated complaint: Pain in leg Time Seen by Provider: 07/13/23 17:21 Source: patient, family and RN notes reviewed Mode of arrival: ambulatory Limitations: no limitations History of Present Illness HPI narrative: This is a 83-year-old male presenting to the emergency department for evaluation of right hip pain x3 weeks. Daughter reports that 3 weeks ago, patient's leg had given out and he lowered himself to the ground. Daughter states that since this mechanical fall, he has had worsening pain in his right hip and is now requiring a cane to ambulate. Patient reports that the pain improves after taking Tylenol. He also reports that his pain improved after drinking a hot cup of coffee. He denies any fevers, chills, chest pain, shortness of breath, abdominal pain, nausea, vomiting or diarrhea. He also endorses some slight discomfort with urination, denies any hematuria, urinary frequency urgency. Denies any calf pain. No other complaints or concerns at this time. MD complaint: Right hip pain Onset (ago): week(s) Location: right Radiation: non-radiation Severity: mild Quality: aching Pain Consistency: intermittent Relieving factors: none Exacerbating factors: none Associated symptoms: denies other symptoms Treatments prior to arrival: none Related Data Home Medications Medication Instructions Recorded Confirmed albuterol sulfate 2.5 mg/3 mL mg inhalation 05/10/23 (0.083 %) solution for nebulization albuterol sulfate 90 mcg/actuation inhalation 05/10/23 aerosol inhaler aspirin 81 mg tablet,delayed 81 mg PO DAILY 05/10/23 release atorvastatin 40 mg tablet 40 mg PO DAILY 05/10/23 lisinopril 10 mg tablet 10 mg PO DAILY 05/10/23 umeclidinium 62.5 mcg-vilanterol 1 ea inhalation DAILY 05/10/23 25 mcg/actuation powdr for inhalation (Anoro Ellipta) fluticasone furoate 100 inhalation 06/22/23 mcg-vilanterol 25 mcg/dose inhalation powder Previous Rx's Medication Instructions Recorded finasteride 5 mg tablet 5 mg PO DAILY 90 days #90 tabs 06/22/23 terazosin 5 mg capsule 5 mg PO BEDTIME 30 days #30 caps 06/22/23 Allergies Allergy/AdvReac Type Severity Reaction Status Date / Time SEASONAL ALLERGIES Allergy Unknown UNKNOWN Uncoded 06/22/23 14:13 Review of Systems Review of Systems: Yes all other systems are reviewed and are negative Constitutional: Constitutional: Reports as per [facility] Past Medical History Attestation statement: The following information was validated with the patient. Onset Date is defined in the Problem List Problems that require an onset date and time if occurred within 24 hrs of arrival to the ED Aortic Dissection and Rupture; Neurologic impairment; Cardiopulmonary Arrest; Endotracheal Intubation; Insertion or Replacement of Mechanical Circulatory Assist Device Social History Social History Advance Directives: No Advance Directives Information Provided: No Physical Exam ED Vital Signs: Vital Signs - 24 hr 07/13/23 15:25 07/13/23 17:26 07/13/23 20:58 Temperature 98.1 F 97.9 F 97.6 F Pulse Rate 85 84 79 Respiratory Rate 16 16 18 Blood Pressure 133/64 152/89 H 148/94 H Pulse Oximetry 95 96 96 Oxygen Delivery Method Room Air Room Air Room Air 07/13/23 20:59 07/13/23 21:59 Temperature 98.0 F Pulse Rate 80 Respiratory Rate 10 L Blood Pressure 151/75 H 156/79 H Pulse Oximetry 98 Oxygen Delivery Method Room Air BMI result Body Mass Index 18.3 Const General: cooperative, comfortable and no acute distress Nutritional Appearance: thin Orientation/consciousness: patient oriented x3 Limitations: no limitations [facility] Head: Yes normal to inspection, Yes normocephalic and Yes atraumatic Ears: hearing grossly normal bilaterally General nose exam: Normal external nose present Face and sinus: Yes normal facial exam Mouth: Normal oral and palatal mucosa present, oropharynx normal and moist mucous membranes Throat: Yes posterior oropharynx normal Eyes General: appearance normal, both eyes and all related structures Eyelids: Yes eyelids normal Conjunctivae: conjunctivae normal Sclerae: sclerae normal Pupils: Equal, round and reactive pupils present EOM: EOMs intact bilaterally Neck Neck: Yes normal visual inspection, Yes full ROM and Yes no lymphadenopathy Lymphatic: no lymphadenopathy noted Chest Chest palpation & inspection: normal inspection of the chest Resp Effort & Inspection: normal respiratory effort and able to speak in complete sentences Auscultation: clear to auscultation bilaterally, no crackles, no rales, no rhonchi and no wheezes Cardio Rate: regular rate Rhythm: regular rhythm Heart sounds: S1 normal heart sound present and S2 normal heart sound present GI Other: Abdomen is soft, nontender, nondistended Inspection: Yes normal to inspection Skin General skin exam: no rashes or lesions noted Trauma: no lacerations or abrasions Wounds: no wounds Neuro General: patient oriented x3 and moves all extremities Cranial nerves: Yes Equal, round and reactive pupils present Extrem Other: Mild tenderness palpation along the right iliac crest, no overlying skin changes, bony step-off or deformity. Full range of motion without discomfort. Femur nontender. General: Yes normal to inspection Right upper extremity: normal to inspection Left upper extremity: normal to inspection Right lower extremity: normal to inspection Left lower extremity: normal to inspection Course Course Course Narrative: RmE: 83-year-old male presents to ED for right hip pain and low back pain. Patient limping due to pain. Patient states no leg swelling, redness, or obvious bruising. Patient fell a month ago. Patient states no abdominal pain or symptoms. X-ray and UA ordered Reevaluation(s) Reevaluation #1: X-rays return, lumbar spine revealing an abdominal aortic aneurysm measuring approximately 5 cm. I discussed this with my attending physician, Dr. magana. Patient had at retro peritoneal ultrasound which measured the abdominal aortic aneurysm to be around 4.3 cm. It is unclear whether not this is an increase in size or if these testing modalities are measuring the AAA differently. Discussed these findings with patient as well as daughter at bedside, will obtain basic labs, and CT angio for further evaluation. Sign out given to Chacho stearns pending labs, UA, and CTA Time: 20:28 Reevaluation #2: CT scan shows 4.3 cm distal abdominal aortic aneurysm which is consistent with the ultrasound from 3 weeks ago. There is no evidence of false lumen or aneurysm leak, I discussed this with the patient's daughter at bedside. The patient is stable for discharge at this time Time: 23:07 Medications Administered Discontinued Medications Generic Name Dose Route Start Last Admin Trade Name Freq PRN Reason Stop Dose Admin Iohexol 80 ml 07/13/23 21:37 07/13/23 21:42 Iohexol 350 Mg/Ml 100 Ml Infus..Btl IV 07/13/23 21:38 80 ml ONCE ONE Administration Medical Decision Making Medical Decision Making MDM Narrative: This is an 83-year-old male presenting to the emergency department with complaints of right hip pain x1 month. Patient had a mechanical fall several weeks ago and has had worsening pain in his right hip. He is now using a cane to ambulate. On arrival, vital signs within normal limits. Lumbar spine nontender, mild tenderness palpation along the right anterior hip. Plan x-rays lumbar spine and right hip Differential Diagnosis Differential Diagnoses: The differential diagnosis associated with the presentation includes Hip contusion, fracture, strain, sprain Lab Data 07/13/23 20:45 07/13/23 20:45 Labs: Lab Results 07/13/23 Range/Units 20:45 WBC 6.6 (4.8-10.8) X10*3/uL RBC 4.75 (4.60-5.80) X10*6/uL Hgb 14.0 (14.0-18.0) g/dl Hct 41.7 L (42.0-52.0) % MCV 87.8 (80.0-98.0) fL MCH 29.5 (27.0-33.0) pg MCHC 33.6 (31.0-36.0) g/dl RDW 15.4 (11.0-16.0) % Plt Count 150 L D (160-400) X10*3/uL MPV 9.7 (9.4-12.4) fL Immature Gran % (Auto) 0.2 (0.0-0.4) % Neut % (Auto) 51.9 (45-73) % Lymph % (Auto) 36.6 (20-40) % Creek % (Auto) 7.8 (2-11) % Eos % (Auto) 2.9 (0-4) % Baso % (Auto) 0.6 (0-2) % Lymph # (Auto) 2.4 (1.2-4.9) X10*3/uL Creek # (Auto) 0.5 (0.1-1.2) X10*3/uL Eos # (Auto) 0.2 (0.0-0.4) X10*3/uL Baso # (Auto) 0.0 (0.0-0.2) X10*3/uL Abs Immat Gran (auto) 0.01 (0.00-0.03) X10*3/uL Absolute Neuts (auto) 3.5 (2.0-8.3) x10*3/uL Absolute Nucleated RBC 0.000 (0.0-0.012) X10*3/uL Nucleated RBC % (auto) 0.0 (0.0-0.2) /100WBC PT 11.0 L (11.1-13.3) SEC INR 0.9 (0.9-1.1) APTT 32.3 (26.0-36.4) SEC Sodium 144 (135-145) mmol/L Potassium 4.1 (3.3-5.1) mmol/L Chloride 107 (96-108) mmol/L Carbon Dioxide 29 (22-29) mmol/L Anion Gap 12 (12-20) BUN 28 H (9-16) mg/dL Creatinine 0.94 (0.5-1.4) mg/dL Estim Creat Clear Calc 42.0 Estimated GFR > 60 Random Glucose 97 (60-115) mg/dL Calcium 9.2 (8.4-10.2) mg/dL Total Bilirubin 0.6 (0.0-1.0) mg/dL AST 18 (5-37) U/L ALT 33 (0-40) U/L Alkaline Phosphatase 85 (39-117) U/L Total Protein 6.4 L (6.5-8.0) g/dL Albumin 3.4 L (3.5-5.0) g/dL Discharge Plan Discharge Clinical Impression: Contusion of hip, right, Abdominal aortic aneurysm (AAA) 3.0 cm to 5.5 cm in diameter in male Patient Disposition: Home, Self-Care Instructions: Osteoarthritis (ED), Nonruptured Abdominal Aortic Aneurysm (DC) Additional Instructions: Your seen in the emergency department due to right hip pain. Please take prescribed medication as directed. Please follow-up with your primary care physician regarding this visit. If any new or worsening symptoms occur including but not limited to chest pain, shortness breath, please return for re-evaluation. Your x-ray showed incidental finding of an abdominal aortic aneurysm. The follow-up CT scan measured this at 4.3 cm which is the same size as it was in June on the ultrasound. A requires close follow-up when it is bigger than 3 cm but less than 5 cm. You should have repeat imaging within the year and sooner if you are having severe abdominal or back pain Call your doctor to schedule follow-up Prescriptions: No Action lisinopril 10 mg tablet 10 mg PO DAILY albuterol sulfate 90 mcg/actuation HFA aerosol inhaler inhalation atorvastatin 40 mg tablet 40 mg PO DAILY Anoro Ellipta 62.5-25 mcg/actuation blister with device 1 ea inhalation DAILY albuterol sulfate 2.5 mg /3 mL (0.083 %) solution for nebulization inhalation aspirin 81 mg tablet,delayed release (DR/EC) 81 mg PO DAILY fluticasone furoate-vilanterol 100-25 mcg/dose blister with device inhalation terazosin 5 mg capsule 5 mg PO BEDTIME 30 Days Qty: 30 1RF finasteride 5 mg tablet 5 mg PO DAILY 90 Days Qty: 90 1RF Interventions: ED Discharge Assessment Last Done: 07/13/23 23:18 Discharge Date/Time: 07/13/23 23:19
[2023-07-13 17:26] VITALS: BP 152/89; PULSE 84; RESP 16; TEMP 36.6; O2SAT 96
--- NOTE | 2023-07-13 18:35 | PC.NURSE ---
patient a&ox3, vss, pt c/o hip pain 02/16, pt awaiting provider, call gould within reach, will continue to monitor.
[2023-07-13 20:58] VITALS: BP 148/94; PULSE 79; RESP 18; TEMP 36.4; O2SAT 96
[2023-07-13 20:59] VITALS: BP 151/75
[2023-07-13 21:05] LABS: Alanine Aminotransferase 33 U/L (0-40); Albumin Level 3.4 g/dL (3.5-5.0); Alkaline Phosphatase 85 U/L (39-117); Anion Gap 12 (12-20); Aspartate Amino Transferase 18 U/L (5-37); Bilirubin Total 0.6 mg/dL (0.0-1.0); Blood Urea Nitrogen 28 mg/dL (9-16); Calcium 9.2 mg/dL (8.4-10.2); Carbon Dioxide 29 mmol/L (22-29); Chloride 107 mmol/L (96-108); Estimated Glomerular Filt Rate > 60; Glucose Random 97 mg/dL (60-115); Potassium 4.1 mmol/L (3.3-5.1); Sodium 144 mmol/L (135-145); Total Protein 6.4 g/dL (6.5-8.0)
[2023-07-13 21:59] VITALS: BP 156/79; PULSE 80; RESP 10; TEMP 36.7; O2SAT 98
== END 2023-07-13 23:19 | disposition home or self-care (01) ==
PROVIDERS: Physician Assistant Medical; Emergency Provider Emergency Medicine
DX: S70.01XA Contusion of right hip, initial encounter (principal); W01.0XXA Fall on same level from slipping, tripping and stumbling without subsequent striking against object, initial encounter; I71.40 Abdominal aortic aneurysm, without rupture, unspecified; R63.6 Underweight; Z68.1 Body mass index [BMI] 19.9 or less, adult; Y93.9 Activity, unspecified; Y92.9 Unspecified place or not applicable; Y99.9 Unspecified external cause status
CPT/HCPCS: 36415; 72100; 73502; 74174; 80053; 85025; 85610; 85730; 99283; 99284; Q9967

== ENCOUNTER 2023-07-19 14:53 | Outpatient (AMB) | payer MEDICARE, BC, OTHER, SELFPAY ==
--- NOTE | 2023-07-19 15:02 | A.OFFVIS_ITS ---
Intake Intake Visit Reasons: 1m follow up bun/creat/PSA Intake Note: Patient presents for follow up visit for retention, lab results Urology Medications: finasteride, terazosin Blood Thinner: aspirin PVR: 13ml's [place] [employer]ist Required: No Accompanied by: Self / Same As Patient Allergies SEASONAL ALLERGIES Allergy (Unknown, Uncoded 07/20/23 20:57) UNKNOWN Medication List - Last Reconciled 07/20/23 by ALICIA Sawyer- albuterol sulfate 90 mcg/actuation inhalation albuterol sulfate mg inhalation aspirin 81 mg PO DAILY atorvastatin 40 mg PO DAILY finasteride 5 mg PO DAILY 90 days fluticasone furoate-vilanterol 100-25 mcg/dose inhalation lisinopril 10 mg PO DAILY terazosin 5 mg PO BEDTIME 30 days umeclidinium-vilanterol 62.5-25 mcg/actuation (Anoro Ellipta) 1 ea inhalation DAILY HPI HPI Comments History of Present Illness Details Romel is a very pleasant 83-year-old male patient of Dr. Oneil. He has a past medical history of COPD and hypercholesteremia. He presents to the office today for a follow up of his recent episode of urinary retention which required Renae placement in [facility]. During last office visit recommendations were made for CT urogram for further assessment evaluation it appears this was not completed however CT angio abdomen and pelvis had been completed. It appears the right kidney and ureter are normal. The left kidney is hydronephrotic shell with no visible functioning renal tissue with marked pelvocaliectasis. The left ureter is dilated but is not well seen distally. The bladder is unremarkable. Previous retroperitoneal ultrasound noting right kidney with mild hydronephrosis with proximal hydroureter. Limited visualization. There are 2 lower pole 0.6 cm cyst. No renal calculi. Left kidney with severe hydronephrosis with proximal to mid hydroureter. No renal calculi. Limited visualization. The bladder is well distended. Complex mobile debris within the bladder. Bladder wall appears trabeculated and thickened. Bilateral ureteral jets are demonstrated. Pre void bladder volume is approximately 300 mL. Postvoid bladder volume is approximately 120 mL. Enlarged prostate with a volume of 47 mL. When asked patient denies any bothersome urinary issues or concerns. He discusses his main concern is his right hip and leg. He reports having followed up in the emergency room for this issue and is following up with his PCP. Discussed further workup with Lasix renogram for further assessment evaluation. Patient reports previously being told one of his kidneys were nonfunctioning however he is very vague when discus sing this topic. He is also unsure how long ago this was In review of patient's chart it appears BUN and creatinine are as follows... BUN: 12/29--17, 05/01--32, 08/02--28 Creatinine: 12/29--1.24, 05/01--1.35, 08/02--0.94 He reports compliance with 5 mg of finasteride and terazosin. In office urinalysis results reviewed with the patient today. PVR 13 mL. When asked he denies urinary urgency, urinary frequency, incontinence, nocturia, hematuria, dysuria, foul smelling urine, changes to urinary stream, flank pain, fever, and or chills. He is happy with his current voiding parameters. Review of Systems Eyes Reports no additional complaints ENT Reports no additional complaints Card Reports as per HPI Resp Reports as per HPI GI Reports as per HPI Reports as per HPI Musc Reports no additional complaints Neuro Reports no additional complaints Psych Reports no additional complaints Endo Reports no additional complaints Amrit/Lymph Reports no additional complaints Aller/Immun Reports no additional complaints Physical Exam Const General: cooperative, comfortable, no acute distress, well developed, alert and awake Nutritional Appearance: thin Orientation/consciousness: patient oriented x3 Limitations: ambulation with cane HEENT Head: Yes normal to inspection, Yes normocephalic and Yes atraumatic Ears: hearing grossly normal bilaterally Eyes General: appearance normal, both eyes and all related structures Neck Neck: Yes normal visual inspection and Yes trachea midline Chest Chest palpation & inspection: normal inspection of the chest Resp Effort & Inspection: normal respiratory effort and able to speak in complete sentences Cardio Rate: regular rate GI Inspection: Yes normal to inspection General: Yes no CVA tenderness Back/Spine/Pelvis Back: no CVA tenderness Skin General skin exam: no rashes or lesions noted Neuro General: patient oriented x3 Extrem General: Yes normal to inspection Psych Appearance: grossly normal and well kempt Mental Status: mental status grossly normal Speech and movement: Normal speech and movement present and Clear speech present Affect: normal affect Attitude: cooperative Thought process: Normal thought process present Thought content: Normal thought content present Insight: Fair insight present (Psych) Judgement: Fair judgement present (Psych) Office Procedures Post Void Residual Post Residual Void Post Void Residual (PVR): 13 [id number] Void Residual by ultrasound Results AMB Urinalysis, Automated UA Leukoctes 15 Dayana/uL Last Edit by Vicky Sweet on 07/19/23 15:41 UA Nitrite Negative Last Edit by [email or web address] on 07/19/23 15:41 UA Urobilinogen 0.2 mg/dL Last Edit by [email or web address] on 07/19/23 15:41 UA Protein 30 mg/dL Last Edit by [email or web address] on 07/19/23 15:41 UA pH 5.5 Last Edit by [email or web address] on 07/19/23 15:41 UA Blood 10 Giovanny/uL Last Edit by [email or web address] on 07/19/23 15:41 UA Specific [employer] 1.025 Last Edit by [email or web address] on 07/19/23 15:41 UA Ketone Negative Last Edit by [email or web address] on 07/19/23 15:41 UA Bilirubin 0 mg/dL Last Edit by [email or web address] on 07/19/23 15:41 UA Glucose 0 mg/dL Last Edit by [email or web address] on 07/19/23 15:41 Results Reviewed Results Reviewed: Laboratory Last Values Urine pH (Auto) 5.5 07/19/23 15:38 Specific [employer] (Auto) 1.025 07/19/23 15:38 Urine Protein (Auto) 30 mg/dL 07/19/23 15:38 Glucose (UA)(Auto) 0 mg/dL 07/19/23 15:38 Urine Ketones (Auto) Negative 07/19/23 15:38 Urine Blood (Auto) 10 Giovanny/uL 07/19/23 15:38 Urine Nitrite (Auto) Negative 07/19/23 15:38 Urine Bilirubin (Auto) 0 mg/dL 07/19/23 15:38 Urine Urobilinogen (Auto) 0.2 mg/dL 07/19/23 15:38 Leukocyte Esterase (Auto) 15 Dayana/uL 07/19/23 15:38 Date of Service: 07/13/23 Procedure(s): CT angio abdomen pelvis EXAMINATION: CT ANGIOGRAM ABDOMEN AND PELVIS VASCULAR FINDINGS: Atherosclerotic changes seen in the descending thoracic aorta with calcified and noncalcified plaque. There is an infrarenal abdominal aortic aneurysm that begins immediately below the level of the renal arteries and extends into both common iliac arteries. Maximal dimension of the abdominal aorta perpendicular to a center line is 4.3 cm. On the patient's prior ultrasound exam from 06/19/2023 maximal dimension was the same. Both common iliac arteries demonstrate aneurysmal dilatation with the left measuring 2.6 cm perpendicular to a center line in the right measuring 2.3 cm. Both contain calcified and noncalcified thrombus. The aneurysms extend minimally into the internal iliac arteries the external iliac arteries are widely patent and free of disease. Common femoral arteries show posterior plaque but are widely patent. Femoral bifurcations are patent. On the right, the SFA and profunda femoris are patent. On the left, the profunda femoris is patent. There is aneurysmal dilatation of the SFA which is first seen on the study where measurements are 1.5 cm. The hepatic artery and splenic artery have separate origins from the abdominal aorta without a celiac axis. The SMA is widely patent. There are 2 renal arteries present on the right both of which have mild ostial disease but are patent tiny atretic renal artery is present on the left (see please discussion below regarding left kidney). NONVASCULAR FINDINGS: LUNG BASES: The visualized lung bases are unremarkable. LIVER, GALLBLADDER, AND BILIARY TREE: The liver is normal in size, shape, and attenuation. No focal hepatic lesion or biliary ductal dilatation is present. Status post cholecystectomy. PANCREAS: Unremarkable. SPLEEN: Unremarkable. ADRENAL GLANDS: Unremarkable. KIDNEYS AND URETERS: The right kidney and ureter appears normal. The left kidney is a hydronephrotic shell with no visible functioning renal tissue with marked pelvocaliectasis. The left ureter is dilated but is not well seen distally. BLADDER: Unremarkable. GASTROINTESTINAL TRACT: A small hiatal hernia is seen. The small and large bowel are unremarkable. The appendix is unremarkable. ABDOMINAL WALL: No significant hernia is appreciated. LYMPH NODES: Normal. PELVIC VISCERA: There is mild BPH. Seminal vesicles appear normal OSSEOUS STRUCTURES: Degenerative changes are present in the spine. No bony destructive lesions CT/CT angio abdomen pelvis IMPRESSION: 1. Infrarenal abdominal aortic aneurysm with maximal dimension of 4.3 cm. 2. Bilateral common iliac artery aneurysms 2.6 cm on the left and 2.3 cm on the right. 3. Aneurysmal dilatation of the left SFA, only partially visualized. 4. 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 Incidental note made of cholecystectomy, small hiatal hernia, BPH and degenerative changes in the spine. Assessment & Plan Assessment & Plan (1) Hydronephrosis: Code(s): N13.30 - Unspecified hydronephrosis (2) Enlarged prostate: Code(s): N40.0 - Benign prostatic hyperplasia without lower urinary tract symptoms (3) Bladder trabeculation: Code(s): N32.89 - Other specified disorders of bladder (4) Bladder wall thickening: Code(s): N32.89 - Other specified disorders of bladder (5) Incomplete bladder emptying: Code(s): R33.9 - Retention of urine, unspecified (6) Urinary retention: Code(s): R33.9 - Retention of urine, unspecified (7) Lower urinary tract symptoms: Code(s): R39.9 - Unspecified symptoms and signs involving the genitourinary system Plan In office urinalysis results reviewed with the patient today; as noted above. PVR [address] results reviewed with the patient today; as noted above Discussed obtaining nuclear renal scan for further assessment evaluation. BUN and creatinine results trended and reviewed with the patient today. Continue terazosin and finasteride 5 mg daily as discussed and prescribed. Patient currently denies any bothersome urinary issues or concerns. Discussed and stressed the importance of continuing to follow up with PCP regarding aortic aneurysm follow-up as well as right-sided hip/leg pain. Will obtain BUN and creatinine Discussed obtaining PSA as recommended during last office visit Discussed and stressed the importance of following up as well as completing treatment plan as planned and discussed for continuity of care as well as overall health and well-being Follow-up in 6 weeks with imaging to be completed prior; or sooner with any issues, concerns, and or questions. Orders: Orders AMB Urinalysis Automated 07/19/23 Z13.9 - Encounter for screening, unspecified AMB Post Void Residual by ultrasound 07/19/23 R33.9 - Retention of urine, unspecified Blood Urea Nitrogen 07/19/23 N13.30 - Unspecified hydronephrosis NM renal flow w pharm int 07/19/23 N13.30 - Unspecified hydronephrosis Creatinine 07/19/23 N13.30 - Unspecified hydronephrosis Patient Instructions: The patient had an opportunity to ask questions regarding the treatment plan. All questions were answered. Physical exam, labs, and imaging were discussed and reviewed in detail. As well as risks, benefits, and discussion of treatment choices. No major barriers to understanding were identified. The patient expressed understanding and agreement with the above treatment plan. The patient was made aware they should contact our office by phone for worsening of their current condition, the appearance of new symptoms, or with any questions or concerns. Compliance is encouraged with any medications and follow up testing that is ordered. It is a privilege to be allowed the opportunity to participate in? your urological care.? Again, if you have any questions or concerns If you have any questions or concerns please do not hesitate to contact me. The office is [phone]. This note is constructed using voice recognition software. While every effort has been made to ensure accuracy sole buffer errors may have been included. Yours sincerely, JAMEY Sawyer Coding Level of Care Code Est Pt Level 3 (15800) Diagnoses Hydronephrosis N13.30 Enlarged prostate N40.0 Bladder trabeculation N32.89 Bladder wall thickening N32.89 Incomplete bladder emptying R33.9 Urinary retention R33.9 Lower urinary tract symptoms R39.9 CPT Codes Post Residual Void - PVR CPT Code: 09028-Xkih Void Residual by ultrasound ([id number])
== END 2023-07-19 15:45 | disposition home or self-care (01) ==
LOC: HO.HUSH 14:53
PROVIDERS: Visit Provider Nurse Practitioner Family
DX: N13.30 Unspecified hydronephrosis (principal); N40.0 Benign prostatic hyperplasia without lower urinary tract symptoms; N32.89 Other specified disorders of bladder; R33.9 Retention of urine, unspecified; R39.9 Unspecified symptoms and signs involving the genitourinary system
CPT/HCPCS: 99213

== ENCOUNTER → 2023-07-19 14:53 | Outpatient (BNVA) | payer MEDICARE, BC, OTHER, SELFPAY | PROVIDERS: Visit Provider Nurse Practitioner Family | DX: N13.30 Unspecified hydronephrosis (principal); N40.0 Benign prostatic hyperplasia without lower urinary tract symptoms; N32.89 Other specified disorders of bladder; R33.9 Retention of urine, unspecified; R39.9 Unspecified symptoms and signs involving the genitourinary system | CPT/HCPCS: 51798; 81003; 99212 ==

== ENCOUNTER → 2023-08-03 11:06 | Outpatient (REF) | payer MEDICARE, BC, OTHER, SELFPAY ==
--- NOTE | ~2023-08-03 | NM_ITS ---
EXAMINATION: NM RENOGRAM WITH LASIX CLINICAL INFORMATION: Retention of urine, unspecified. Abdominal pain. Found to have left-sided marked hydronephrosis on prior ultrasound dated 06/19/2023 and subsequently confirmed with CTA of the abdomen and pelvis done on 07/13/2023. COMPARISON: Renal ultrasound done on 06/19/2023 and CTA of the abdomen and pelvis done on 07/13/2023. TECHNIQUE: Dynamic renal scintigraphy was performed after intravenous administration of 10 mCi Tc-99m Technetium 99m DTPA .24 mg of furosemide was administered at 30 minutes and continued dynamic imaging of the abdomen/pelvis was obtained for a total of 45 minutes. Please note that the patient and gently needed to void at 25 minutes post Lasix and was unable to continue for usual total time period of 60 minutes. A postvoid image was subsequently obtained. FINDINGS: Left kidney 15% and the right kidney 85% of total renal uptake. Left Kidney: The left kidney is enlarged, shows mild peripheral rim-like cortical perfusion and no evidence of any tracer excretion into previously documented markedly dilated pelvicalyceal system. T 1/2 on post Lasix images could not be calculated due to lack of excretion of the radiotracer on the initial pre-Lasix images. Right Kidney: Normal perfusion. Normal cortical uptake and excretion into the mildly prominent pelvicalyceal system. No evidence of any obstruction following administration of furosemide. Following administration of furosemide, the renal washout half-time is 8.6 minutes . (Half-emptying times: Normal <10min, Intermediate 10-20 min, Obstructed >20 min.) Other: No evidence of any reflux on post Lasix images. NM/NM renal flow w pharm int IMPRESSION: 1. Differential renal function: Left 15%, Right 85%. 2. The left kidney is enlarged, shows minimal peripheral cortical rim-like perfusion. Presence or absence of underlying obstruction remain indeterminate related to poor renal function resulting in lack of excretion of radiotracer into the previously documented markedly dilated pelvicalyceal system. 3. Right kidney has non-obstructive parameters after diuresis.
== END ==
LOC: HO.NUCMED 11:06
PROVIDERS: Visit Provider Nurse Practitioner Family
DX: N13.30 Unspecified hydronephrosis (principal)
CPT/HCPCS: 78708; A9539; J1940

== ENCOUNTER 2023-08-16 14:26 | Outpatient (AMB) | payer MEDICARE, BC, OTHER, SELFPAY ==
--- NOTE | 2023-08-16 14:38 | A.OFFVIS_ITS ---
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 Accompanied by: Self / Same As Patient Allergies SEASONAL ALLERGIES Allergy (Unknown, Uncoded 08/20/23 14:09) UNKNOWN Medication List - Last Reconciled 08/20/23 by GWENDOLYN SawyerP- albuterol sulfate 90 mcg/actuation inhalation albuterol sulfate mg inhalation aspirin 81 mg PO DAILY atorvastatin 40 mg PO DAILY finasteride 5 mg PO DAILY 90 days fluticasone furoate-vilanterol 100-25 mcg/dose inhalation fosfomycin tromethamine 3 grams PO Q3D 9 days lisinopril 10 mg PO DAILY terazosin 5 mg PO BEDTIME 30 days umeclidinium-vilanterol 62.5-25 mcg/actuation (Anoro Ellipta) 1 ea inhalation DAILY HPI HPI Comments History of Present Illness Details Romel is a very pleasant 83-year-old male patient of Dr. Oneil who is accompanied by his daughter at todays office visit. He has a past medical history of COPD and hypercholesteremia. He presents to the office today for a follow up. Of note, patient was last seen approximately 1 month ago at which time a Lasix renogram was ordered as previous CT noted left kidney with severe hydronephrosis with no obvious obstruction. These results were reviewed with the patient and his daughter today. Left kidney 15% and right kidney 85% of total renal uptake. Left kidney is enlarged with no evidence of obstruction however shows mild peripheral rim cortical perfusion. Presence or absence of underlying obstruction remain indeterminate related to poor renal function resulting in lack of excretion of radiotracer into the previously documented markedly dilated pelvicalyceal system. Right kidney normal perfusion. He discusses following up with vascular and cardiology for his aortic aneurysm. When asked patient denies any bothersome urinary issues or concerns. He discusses his main concern is his right hip and leg. Patient reports previously being told one of his kidneys were nonfunctioning however is unsure who or how long ago this was. As noted labs reviewed with the patient today. BUN: 12/29--17, 05/01--32, 08/02--28, 09/02--19 Creatinine: 12/29--1.24, 05/01--1.35, 08/02--0.94, 09/02--1.01 PSA 09/02--0.6 He reports compliance with 5 mg of finasteride and terazosin as prescribed. In office urinalysis results reviewed with the patient today positive leukocytes positive nitrites. However, he denies any urinary tract like to infections. PVR 56ml's. He denies urinary urgency, urinary frequency, incontinence, nocturia, hematuria, dysuria, foul smelling urine, changes to urinary stream, flank pain, fever, and or chills. He is happy with his current voiding parameters. Review of Systems Eyes Reports no additional complaints ENT Reports no additional complaints Card Reports as per HPI Resp Reports as per HPI GI Reports as per HPI Reports as per HPI Musc Reports no additional complaints Neuro Reports no additional complaints Psych Reports no additional complaints Endo Reports no additional complaints Amrit/Lymph Reports no additional complaints Aller/Immun Reports no additional complaints Physical Exam Const General: cooperative, comfortable, no acute distress, well developed, alert and awake Nutritional Appearance: thin Orientation/consciousness: patient oriented x3 Limitations: ambulation with cane HEENT Head: Yes normal to inspection, Yes normocephalic and Yes atraumatic Ears: hearing grossly normal bilaterally Eyes General: appearance normal, both eyes and all related structures Neck Neck: Yes normal visual inspection and Yes trachea midline Chest Chest palpation & inspection: normal inspection of the chest Resp Effort & Inspection: normal respiratory effort and able to speak in complete sentences Cardio Rate: regular rate GI Inspection: Yes normal to inspection General: Yes no CVA tenderness Back/Spine/Pelvis Back: no CVA tenderness Skin General skin exam: no rashes or lesions noted Neuro General: patient oriented x3 Extrem General: Yes normal to inspection Psych Appearance: grossly normal and well kempt Mental Status: mental status grossly normal Speech and movement: Normal speech and movement present and Clear speech present Affect: normal affect Attitude: cooperative Thought process: Normal thought process present Thought content: Normal thought content present Insight: Fair insight present (Psych) Judgement: Fair judgement present (Psych) Office Procedures Post Void Residual Post Residual Void Post Void Residual (PVR): 56 [id number] Void Residual by ultrasound Results AMB Urinalysis, Automated UA Leukoctes 125 Dayana/uL Last Edit by Vicky Sweet on 08/16/23 15:21 UA Nitrite Positive Last Edit by Vicky Sweet on 08/16/23 15:21 UA Urobilinogen 0.2 mg/dL Last Edit by Vicky Sweet on 08/16/23 15:21 UA Protein 15 mg/dL Last Edit by Vicky Sweet on 08/16/23 15:21 UA pH 6.0 Last Edit by Vicky Sweet on 08/16/23 15:21 UA Blood 0 Giovanny/uL Last Edit by Vicky Sweet on 08/16/23 15:21 UA Specific [place] 1.025 Last Edit by Vicky Sweet on 08/16/23 15:21 UA Ketone Negative Last Edit by Vicky Sweet on 08/16/23 15:21 UA Bilirubin 0 mg/dL Last Edit by Vikcy Sweet on 08/16/23 15:21 UA Glucose 0 mg/dL Last Edit by Vicky Sweet on 08/16/23 15:21 Results Reviewed Results Reviewed: Laboratory Last Values Urine pH (Auto) 6.0 08/16/23 14:39 Specific [place] (Auto) 1.025 08/16/23 14:39 Urine Protein (Auto) 15 mg/dL 08/16/23 14:39 Glucose (UA)(Auto) 0 mg/dL 08/16/23 14:39 Urine Ketones (Auto) Negative 08/16/23 14:39 Urine Blood (Auto) 0 Giovanny/uL 08/16/23 14:39 Urine Nitrite (Auto) Positive 08/16/23 14:39 Urine Bilirubin (Auto) 0 mg/dL 08/16/23 14:39 Urine Urobilinogen (Auto) 0.2 mg/dL 08/16/23 14:39 Leukocyte Esterase (Auto) 125 [place]ana/uL 08/16/23 14:39 Date of Service: 08/03/23 EXAMINATION: FINDINGS: Left kidney 15% and the right kidney 85% of total renal uptake. Left Kidney: The left kidney is enlarged, shows mild peripheral rim-like cortical perfusion and no evidence of any tracer excretion into previously documented markedly dilated pelvicalyceal system. T 1/2 on post Lasix images could not be calculated due to lack of excretion of the radiotracer on the initial pre-Lasix images. Right Kidney: Normal perfusion. Normal cortical uptake and excretion into the mildly prominent pelvicalyceal system. No evidence of any obstruction following administration of furosemide. Following administration of furosemide, the renal washout half-time is 8.6 minutes . (Half-emptying times: Normal <10min, Intermediate 10-20 min, Obstructed >20 min.) Other: No evidence of any reflux on post Lasix images. IMPRESSION: 1. Differential renal function: Left 15%, Right 85%. 2. The left kidney is enlarged, shows minimal peripheral cortical rim-like perfusion. Presence or absence of underlying obstruction remain indeterminate related to poor renal function resulting in lack of excretion of radiotracer into the previously documented markedly dilated pelvicalyceal system. 3. Right kidney has non-obstructive parameters after diuresis. Assessment & Plan Assessment & Plan (1) Decreased renal function: Code(s): N28.9 - Disorder of kidney and ureter, unspecified (2) Enlarged prostate: Code(s): N40.0 - Benign prostatic hyperplasia without lower urinary tract symptoms (3) Hydronephrosis: Code(s): N13.30 - Unspecified hydronephrosis (4) Urinary tract infection: Code(s): N39.0 - Urinary tract infection, site not specified Plan In office urinalysis results reviewed with the patient today; as noted above; sent for urine culture PVR 56 mL. Recent nuclear renal scan results reviewed with the patient is daughter today; as noted above. Recent PSA results reviewed with the patient today; as noted above. BUN and creatinine results reviewed and trended with the patient today. Discussed referral to Nephrology for further assessment evaluation Continue terazosin and finasteride as discussed; discussed decreasing finasteride Monday given PSA results He currently denies any bothersome urinary issues or concerns. He reports be happy with current voiding parameters. Follow-up in 1 month if not sooner with any issues, concerns, and or questions. Orders: Orders AMB Post Void Residual by ultrasound 08/16/23 R33.9 - Retention of urine, unspecified AMB Urinalysis Automated 08/16/23 Z13.9 - Encounter for screening, unspecified Urine Culture 08/16/23 N39.0 - Urinary tract infection, site not specified Referrals Nephrology Referral N13.30 - Unspecified hydronephrosis, N28.9 - Disorder of kidney and ureter, unspecified Medications: New nitrofurantoin macrocrystal must administer with a meal/food 100 mg PO BID 10 days 20 caps 0RF N39.0 - Urinary tract infection, site not specified Patient Instructions: The patient had an opportunity to ask questions regarding the treatment plan. All questions were answered. Physical exam, labs, and imaging were discussed and reviewed in detail. As well as risks, benefits, and discussion of treatment choices. No major barriers to understanding were identified. The patient expre ssed understanding and agreement with the above treatment plan. The patient was made aware they should contact our office by phone for worsening of their current condition, the appearance of new symptoms, or with any questions or concerns. Compliance is encouraged with any medications and follow up testing that is ordered. It is a privilege to be allowed the opportunity to participate in? your urological care.? Again, if you have any questions or concerns If you have any questions or concerns please do not hesitate to contact me. The office is [phone]. This note is constructed using voice recognition software. While every effort has been made to ensure accuracy swatch cutter errors may have been included. Yours sincerely, JAMEY Sawyer Coding Level of Care Code Est Pt Level 4 (38341) Diagnoses Decreased renal function N28.9 Enlarged prostate N40.0 Hydronephrosis N13.30 Urinary tract infection N39.0 CPT Codes Post Residual Void - PVR CPT Code: 74878-Lpaf Void Residual by ultrasound ([id number])
== END 2023-08-16 15:44 | disposition home or self-care (01) ==
PROVIDERS: Visit Provider Nurse Practitioner Family
DX: N28.9 Disorder of kidney and ureter, unspecified (principal); N40.0 Benign prostatic hyperplasia without lower urinary tract symptoms; N13.30 Unspecified hydronephrosis; N39.0 Urinary tract infection, site not specified
CPT/HCPCS: 99214

== ENCOUNTER 2023-08-16 14:26 | Outpatient (REF) | payer MEDICARE, BC, OTHER, SELFPAY ==
[2023-08-16 17:15] LABS: Blood Urea Nitrogen 19 mg/dL (9-16); Estimated Glomerular Filt Rate > 60
[2023-08-16 17:39] LABS: Prostate Specific Antigen 0.57 ng/mL (<0.05-4.0)
== END 2023-08-16 14:27 | disposition home or self-care (01) ==
LOC: HO.LAB 14:26
PROVIDERS: PCP Internal Medicine Endocrinology, Diabetes & Metabolism; Visit Provider Nurse Practitioner Family
DX: R39.15 Urgency of urination (principal); R33.9 Retention of urine, unspecified; Z12.5 Encounter for screening for malignant neoplasm of prostate
CPT/HCPCS: 36415; 51798; 81003; 82565; 84153; 84520; 87086; 87088; 87186; 99212

== ENCOUNTER 2023-08-16 16:27 | Outpatient (REF) | payer MEDICARE, BC, OTHER, SELFPAY | END 2023-08-16 16:28 | disposition home or self-care (01) | LOC: HO.LNP 16:27 | PROVIDERS: Visit Provider Nurse Practitioner Family | DX: Z13.89 Encounter for screening for other disorder (principal) | CPT/HCPCS: 87086 ==

== ENCOUNTER 2023-09-14 15:47 | Outpatient (AMB) | payer MEDICARE, BC, OTHER, SELFPAY ==
--- NOTE | 2023-09-14 15:50 | MHC.OFFVIS ---
Intake Intake Visit Reasons: 4w follow up Intake Note: Patient presents for follow up visit for retention Urology Medications: finasteride, terazosin Blood Thinner: aspirin PVR: 11ml's Market Research Interviewer Required: No Accompanied by: Daughter Allergies SEASONAL ALLERGIES Allergy (Unknown, Uncoded 09/14/23 21:16) UNKNOWN Medication List - Last Reconciled 09/14/23 by GWENDOLYN SawyerP- albuterol sulfate 90 mcg/actuation inhalation albuterol sulfate mg inhalation aspirin 81 mg PO DAILY atorvastatin 40 mg PO DAILY finasteride 5 mg PO DAILY 90 days fluticasone furoate-vilanterol 100-25 mcg/dose inhalation fosfomycin tromethamine 1 packet PO .weekly 12 weeks lisinopril 10 mg PO DAILY terazosin 5 mg PO BEDTIME 30 days umeclidinium-vilanterol 62.5-25 mcg/actuation (Anoro Ellipta) 1 ea inhalation DAILY HPI HPI Comments History of Present Illness Details Romel is a very pleasant 83-year-old male patient of Dr. Oneil who is accompanied by his daughter at todays office visit. He has a past medical history of COPD and hypercholesteremia. He presents to the office today for a follow up. Of note, patient was last seen approximately 1 month ago at which time he was treated with fosfomycin for positive urine culture noting Klebsiella pneumoniae and E coli. In discussion with the patient today he reports urologically to be feeling and doing well. However he continues with right-sided leg pain. He reports to be following up with vascular surgery who believes this might be a sciatica issue. In office urinalysis results reviewed with the patient today. He continues with positive leukocytes. Discussed sending urine for microgen testing. Previous workup has included a Lasix renogram as CT noted severe hydronephrosis with no obvious obstruction. Renogram noted Left kidney 15% and right kidney 85% of total renal uptake. Left kidney is enlarged with no evidence of obstruction however shows mild peripheral rim cortical perfusion. Presence or absence of underlying obstruction remain indeterminate related to poor renal function resulting in lack of excretion of radiotracer into the previously documented markedly dilated pelvicalyceal system. Right kidney normal perfusion. He discusses at length his continuation and follow-up with vascular, Cardiology, Nephrology, PCP, and pulmonology. When asked patient denies any bothersome urinary issues or concerns. He discusses his main concern is his right hip and leg. Patient reports previously being told one of his kidneys were nonfunctioning however is unsure who or how long ago this was. As noted labs reviewed with the patient today. BUN: 12/29--17, 05/01--32, 08/02--28, 09/02--19 Creatinine: 12/29--1.24, 05/01--1.35, 08/02--0.94, 09/02--1.01 PSA 09/02--0.6 He reports compliance with 5 mg of finasteride and terazosin as prescribed. PVR 11ml's. He denies urinary urgency, urinary frequency, incontinence, nocturia, hematuria, dysuria, foul smelling urine, changes to urinary stream, flank pain, fever, and or chills. He is happy with his current voiding parameters. Review of Systems Eyes Reports no additional complaints ENT Reports no additional complaints Card Reports as per HPI Resp Reports as per HPI GI Reports as per HPI Reports as per HPI Musc Reports no additional complaints Neuro Reports no additional complaints Psych Reports no additional complaints Endo Reports no additional complaints Amrit/Lymph Reports no additional complaints Aller/Immun Reports no additional complaints Physical Exam Const General: cooperative, comfortable, no acute distress, well developed, alert and awake Nutritional Appearance: thin Orientation/consciousness: patient oriented x3 Limitations: ambulation with cane HEENT Head: Yes normal to inspection, Yes normocephalic and Yes atraumatic Ears: hearing grossly normal bilaterally Eyes General: appearance normal, both eyes and all related structures Neck Neck: Yes normal visual inspection and Yes trachea midline Chest Chest palpation & inspection: normal inspection of the chest Resp Effort & Inspection: normal respiratory effort and able to speak in complete sentences Cardio Rate: regular rate GI Inspection: Yes normal to inspection General: Yes no CVA tenderness Back/Spine/Pelvis Back: no CVA tenderness Skin General skin exam: no rashes or lesions noted Neuro General: patient oriented x3 Extrem General: Yes normal to inspection Psych Appearance: grossly normal and well kempt Mental Status: mental status grossly normal Speech and movement: Normal speech and movement present and Clear speech present Affect: normal affect Attitude: cooperative Thought process: Normal thought process present Thought content: Normal thought content present Insight: Fair insight present (Psych) Judgement: Fair judgement present (Psych) Office Procedures Post Void Residual Post Residual Void Post Void Residual (PVR): 11 [id number] Void Residual by ultrasound Results AMB Urinalysis, Automated UA Leukoctes 125 Dayana/uL Last Edit by Vicky Sweet on 09/14/23 16:16 UA Nitrite Positive Last Edit by Vicky Sweet on 09/14/23 16:16 UA Urobilinogen 0.2 mg/dL Last Edit by Vicky Sweet on 09/14/23 16:16 UA Protein 30 mg/dL Last Edit by Vicky Sweet on 09/14/23 16:16 UA pH 5.5 Last Edit by AWCC Holdingsdontae on 09/14/23 16:16 UA Blood 0 Giovanny/uL Last Edit by Cloudvue Technologiesnatasha DeciZiumdontae on 09/14/23 16:16 UA Specific [place] 1.020 Last Edit by [email or web address] on 09/14/23 16:16 UA Ketone Negative Last Edit by Cloudvue Technologiesnatasha Sweet on 09/14/23 16:16 UA Bilirubin 1 mg/dL Last Edit by [email or web address] Sweet on 09/14/23 16:16 UA Glucose 0 mg/dL Last Edit by Cloudvue Technologiesnatasha DeciZiumdontae on 09/14/23 16:16 Results Reviewed Results Reviewed: Laboratory Last Values Urine pH (Auto) 5.5 09/14/23 16:00 Specific [place] (Auto) 1.020 09/14/23 16:00 Urine Protein (Auto) 30 mg/dL 09/14/23 16:00 Glucose (UA)(Auto) 0 mg/dL 09/14/23 16:00 Urine Ketones (Auto) Negative 09/14/23 16:00 Urine Blood (Auto) 0 Giovanny/uL 09/14/23 16:00 Urine Nitrite (Auto) Positive 09/14/23 16:00 Urine Bilirubin (Auto) 1 mg/dL 09/14/23 16:00 Urine Urobilinogen (Auto) 0.2 mg/dL 09/14/23 16:00 Leukocyte Esterase (Auto) 125 [place]/uL 09/14/23 16:00 Assessment & Plan Assessment & Plan (1) Decreased renal function: Code(s): N28.9 - Disorder of kidney and ureter, unspecified (2) Enlarged prostate: Code(s): N40.0 - Benign prostatic hyperplasia without lower urinary tract symptoms (3) Hydronephrosis: Code(s): N13.30 - Unspecified hydronephrosis (4) Urinary tract infection: Code(s): N39.0 - Urinary tract infection, site not specified Plan In office urinalysis results reviewed with the patient today; as noted above; will send for microgen and treat according. PVR 11 mL. Discussed at length potential causes of urinary tract infections. Continue terazosin and finasteride as discussed; discussed decreasing finasteride Monday given PSA results He currently denies any bothersome urinary issues or concerns. He reports be happy with current voiding parameters. Discussed, educated, and stressed the importance of drinking water daily. Discussed, educated, and stressed the importance of limiting/quitting cigarette smoking for overall health and well-being. Follow-up in 1 month if not sooner with any issues, concerns, and or questions. Orders: Orders AMB Urinalysis Automated Today Z13.9 - Encounter for screening, unspecified AMB Post Void Residual by ultrasound Today R33.9 - Retention of urine, unspecified Patient Instructions: The patient had an opportunity to ask questions regarding the treatment plan. All questions were answered. Physical exam, labs, and imaging were discussed and reviewed in detail. As well as risks, benefits, and discussion of treatment choices. No major barriers to understanding were identified. The patient expressed understanding and agreement with the above treatment plan. The patient was made aware they should contact our office by phone for worsening of their current condition, the appearance of new symptoms, or with any questions or concerns. Compliance is encouraged with any medications and follow up testing that is ordered. It is a privilege to be allowed the opportunity to participate in? your urological care.? Again, if you have any questions or concerns If you have any questions or concerns please do not hesitate to contact me. The office is [phone]. This note is constructed using voice recognition software. While every effort has been made to ensure accuracy paving and surfacing labourer errors may have been included. Yours sincerely, JAMEY Sawyer Coding Level of Care Code Est Pt Level 4 (88889) Diagnoses Decreased renal function N28.9 Enlarged prostate N40.0 Hydronephrosis N13.30 Urinary tract infection N39.0 CPT Codes Post Residual Void - PVR CPT Code: 59874-Wmgw Void Residual by ultrasound ([id number]) Time Spent (min) 35
== END 2023-09-14 16:47 | disposition home or self-care (01) ==
PROVIDERS: Visit Provider Nurse Practitioner Family
DX: N28.9 Disorder of kidney and ureter, unspecified (principal); N40.0 Benign prostatic hyperplasia without lower urinary tract symptoms; N13.30 Unspecified hydronephrosis; N39.0 Urinary tract infection, site not specified
CPT/HCPCS: 99214

== ENCOUNTER → 2023-09-14 15:47 | Outpatient (BNVA) | payer MEDICARE, BC, OTHER, SELFPAY | PROVIDERS: Visit Provider Nurse Practitioner Family | DX: N28.9 Disorder of kidney and ureter, unspecified (principal); N40.0 Benign prostatic hyperplasia without lower urinary tract symptoms; N13.30 Unspecified hydronephrosis; N39.0 Urinary tract infection, site not specified | CPT/HCPCS: 51798; 81003; 99212 ==

== ENCOUNTER 2023-10-06 16:05 | Outpatient (REF) | payer MEDICARE, OTHER, BC, SELFPAY ==
[2023-10-06 17:48] LABS: Appearance Urine Clear; Color Urine Yellow; Glucose Urine UA Negative (Negative); Leukocyte Esterase Urine Negative (Negative); Nitrite Urine Negative (Negative); Specific Gravity - Urine 1.015 (1.005-1.025); Urine Blood Negative (Negative); Urine Ketones Negative (Negative); Urine Protein Negative (Neg-Trace)
== END 2023-10-06 16:06 | disposition home or self-care (01) ==
LOC: HO.LAB 16:05
PROVIDERS: Visit Provider Internal Medicine Nephrology
DX: N39.0 Urinary tract infection, site not specified (principal)
CPT/HCPCS: 81003

== ENCOUNTER 2023-10-26 15:37 | Outpatient (AMB) | payer MEDICARE, BC, OTHER, SELFPAY ==
--- NOTE | 2023-10-26 15:52 | MHC.OFFVIS ---
Intake Visit Reasons: 1m/PVR Intake Note: Patient presents for follow up visit for retention Urology Medications: terazosin, finasteride Blood Thinner: aspirin PVR: 0ml's Test Engine Evaluator Required: No Accompanied by: Daughter Allergies SEASONAL ALLERGIES Allergy (Unknown, Uncoded 10/26/23 16:25) UNKNOWN Medication List - Last Reconciled 10/26/23 by GWENDOLYN SawyerP- albuterol sulfate 90 mcg/actuation inhalation albuterol sulfate mg inhalation aspirin 81 mg PO DAILY atorvastatin 40 mg PO DAILY finasteride 5 mg PO DAILY 90 days fluticasone furoate-vilanterol 100-25 mcg/dose inhalation fosfomycin tromethamine 1 packet PO .weekly 12 weeks lisinopril 10 mg PO DAILY terazosin 5 mg PO BEDTIME 90 days umeclidinium-vilanterol 62.5-25 mcg/actuation (Anoro Ellipta) 1 ea inhalation DAILY HPI Comments Details: Roeml is a very pleasant 83-year-old male patient of Dr. Oneil who is accompanied by his daughter at todays office visit. He has a past medical history of COPD and hypercholesteremia. He presents to the office today for a follow up. In discussion with the patient he reports to be doing and feeling well. He discusses since his last office visit here approximately 5 weeks ago he has followed up with Nephrology, pulmonology, and dermatology. Of note, during last office visit patients urine was sent for further microgen testing that noted Klebsiella pneumoniae and patient has since completed levofloxacin 500 mg daily for 2 weeks as prescribed. In office urinalysis results reviewed with the patient today; WNL. PVR 0 mL. He discusses continuing to limit his nicotine consumption. Patient discussed urologically to be feeling and doing well. However he continues with right-sided leg pain. He reports to be following up with vascular surgery who believes this might be a sciatica issue. Previous workup has included a Lasix renogram as CT noted severe hydronephrosis with no obvious obstruction. Renogram noted Left kidney 15% and right kidney 85% of total renal uptake. Left kidney is enlarged with no evidence of obstruction however shows mild peripheral rim cortical perfusion. Presence or absence of underlying obstruction remain indeterminate related to poor renal function resulting in lack of excretion of radiotracer into the previously documented markedly dilated pelvicalyceal system. Right kidney normal perfusion. He discusses at length his continuation and follow-up with vascular, Cardiology, Nephrology, PCP, dermatology, and pulmonology. When asked patient denies any bothersome urinary issues or concerns. He discusses his main concern is his right hip and leg. As noted labs reviewed with the patient today. BUN: 12/29--17, 05/01--32, 08/02--28, 09/02--19 Creatinine: 12/29--1.24, 05/01--1.35, 08/02--0.94, 09/02--1.01 PSA 09/02--0.6 He reports compliance with 5 mg of finasteride and terazosin as prescribed. He denies urinary urgency, urinary frequency, incontinence, nocturia, hematuria, dysuria, foul smelling urine, changes to urinary stream, flank pain, fever, and or chills. He is happy with his current voiding parameters. Review of Systems Eyes Reports no additional complaints ENT Reports no additional complaints Card Reports as per HPI Resp Reports as per HPI GI Reports as per HPI Reports as per HPI Musc Reports no additional complaints Skin/Breast Reports as per HPI Neuro Reports no additional complaints Psych Reports no additional complaints Endo Reports no additional complaints Amrit/Lymph Reports no additional complaints Aller/Immun Reports no additional complaints Physical Exam Const General: cooperative, comfortable, no acute distress, well developed, alert and awake Nutritional Appearance: thin Orientation/consciousness: patient oriented x3 Limitations: ambulation with cane HEENT Head: Yes normal to inspection, Yes normocephalic and Yes atraumatic Ears: hearing grossly normal bilaterally Eyes General: appearance normal, both eyes and all related structures Neck Neck: Yes normal visual inspection and Yes trachea midline Chest Chest palpation & inspection: normal inspection of the chest Resp Effort & Inspection: normal respiratory effort and able to speak in complete sentences Cardio Rate: regular rate GI Inspection: Yes normal to inspection General: Yes no CVA tenderness Back/Spine/Pelvis Back: no CVA tenderness Skin General skin exam: no rashes or lesions noted Neuro General: patient oriented x3 Extrem General: Yes normal to inspection Psych Appearance: grossly normal and well kempt Mental Status: mental status grossly normal Speech and movement: Normal speech and movement present and Clear speech present Affect: normal affect Attitude: cooperative Thought process: Normal thought process present Thought content: Normal thought content present Insight: Fair insight present (Psych) Judgement: Fair judgement present (Psych) Office Procedures Post Void Residual Post Residual Void Post Void Residual (PVR): 0 [id number] Void Residual by ultrasound Results AMB Urinalysis, Automated UA Leukoctes 0 Dayana/uL Last Edit by Vicky Sweet on 10/26/23 16:16 UA Nitrite Negative Last Edit by Vicky Sweet on 10/26/23 16:16 UA Urobilinogen 0.2 mg/dL Last Edit by Vicky Sweet on 10/26/23 16:16 UA Protein 15 mg/dL Last Edit by [employer] on 10/26/23 16:16 UA pH 6.0 Last Edit by GlassHouse Technologiesnatasha [employer] on 10/26/23 16:16 UA Blood 0 Giovanny/uL Last Edit by [employer] Sweet on 10/26/23 16:16 UA Specific [place] 1.015 Last Edit by [employer] on 10/26/23 16:16 UA Ketone Negative Last Edit by Vicky Sweet on 10/26/23 16:16 UA Bilirubin 0 mg/dL Last Edit by [employer] on 10/26/23 16:16 UA Glucose 0 mg/dL Last Edit by [employer]asha [employer] on 10/26/23 16:16 Results Reviewed Results Reviewed: Laboratory Last Values Urine pH (Auto) 6.0 10/26/23 16:00 Specific [place] (Auto) 1.015 10/26/23 16:00 Urine Protein (Auto) 15 mg/dL 10/26/23 16:00 Glucose (UA)(Auto) 0 mg/dL 10/26/23 16:00 Urine Ketones (Auto) Negative 10/26/23 16:00 Urine Blood (Auto) 0 Giovanny/uL 10/26/23 16:00 Urine Nitrite (Auto) Negative 10/26/23 16:00 Urine Bilirubin (Auto) 0 mg/dL 10/26/23 16:00 Urine Urobilinogen (Auto) 0.2 mg/dL 10/26/23 16:00 Leukocyte Esterase (Auto) 0 Dayana/uL 10/26/23 16:00 Assessment & Plan Assessment & Plan (1) Decreased renal function: Code(s): N28.9 - Disorder of kidney and ureter, unspecified Category: Medical (2) Enlarged prostate: Code(s): N40.0 - Benign prostatic hyperplasia without lower urinary tract symptoms Category: Medical (3) Hydronephrosis: Code(s): N13.30 - Unspecified hydronephrosis Category: Medical (4) Urinary tract infection: Code(s): N39.0 - Urinary tract infection, site not specified Category: Medical Plan In office urinalysis results reviewed with the patient today PVR 0 mL. Discussed at length potential causes of urinary tract infections. Continue terazosin and finasteride as discussed He currently denies any bothersome urinary issues or concerns. He reports be happy with current voiding parameters. Discussed, educated, and stressed the importance of drinking water daily. Continue to follow-up with pulmonology, vascular, dermatology, and Nephrology. Discussed, educated, and stressed the importance of limiting/quitting cigarette smoking for overall health and well-being. Follow-up in 3 months with PVR; if not sooner with any issues, concerns, and or questions. Orders: Orders AMB Urinalysis Automated Today Z13.9 - Encounter for screening, unspecified AMB Post Void Residual by ultrasound Today R33.9 - Retention of urine, unspecified Patient Instructions: The patient had an opportunity to ask questions regarding the treatment plan. All questions were answered. Physical exam, labs, and imaging were discussed and reviewed in detail. As well as risks, benefits, and discussion of treatment choices. No major barriers to understanding were identified. The patient expressed understanding and agreement with the above treatment plan. The patient was made aware they should contact our office by phone for worsening of their current condition, the appearance of new symptoms, or with any questions or concerns. Compliance is encouraged with any medications and follow up testing that is ordered. It is a privilege to be allowed the opportunity to participate in? your urological care.? Again, if you have any questions or concerns If you have any questions or concerns please do not hesitate to contact me. The office is [phone]. This note is constructed using voice recognition software. While every effort has been made to ensure accuracy network engineer administrator errors may have been included. Yours sincerely, JAMEY Sawyer
== END 2023-10-26 16:28 | disposition home or self-care (01) ==
PROVIDERS: Visit Provider Nurse Practitioner Family
DX: N28.9 Disorder of kidney and ureter, unspecified (principal); N40.0 Benign prostatic hyperplasia without lower urinary tract symptoms; N13.30 Unspecified hydronephrosis; N39.0 Urinary tract infection, site not specified
CPT/HCPCS: 99213

== ENCOUNTER → 2023-10-26 15:37 | Outpatient (BNVA) | payer MEDICARE, BC, OTHER, SELFPAY | PROVIDERS: Visit Provider Nurse Practitioner Family | DX: N39.0 Urinary tract infection, site not specified (principal); N13.30 Unspecified hydronephrosis; N40.0 Benign prostatic hyperplasia without lower urinary tract symptoms; N28.9 Disorder of kidney and ureter, unspecified; Z79.82 Long term (current) use of aspirin; Z79.899 Other long term (current) drug therapy | CPT/HCPCS: 51798; 81003; 99212 ==

== ENCOUNTER 2024-01-24 15:16 | Outpatient (AMB) | payer MEDICARE, BC, OTHER, SELFPAY ==
--- NOTE | 2024-01-24 15:27 | A.OFFVIS_ITS ---
Intake Visit Reasons: 3m/PVR Intake Note: Patient is Present for PVR/ Urology Med: Terazosin, Finasteride, Fosfomycin Antibiotic Allergy: None Blood Thinner: Aspirin Last PVR: 0 Todays PVR: 40 Timber Bucker Required: No Allergies SEASONAL ALLERGIES Allergy (Unknown, Uncoded 01/24/24 20:19) UNKNOWN Medication List - Last Reconciled 01/24/24 by GWENDOLYN SawyerP- albuterol sulfate 90 mcg/actuation inhalation albuterol sulfate mg inhalation aspirin 81 mg PO DAILY atorvastatin 40 mg PO DAILY finasteride 5 mg PO DAILY 90 days fluticasone furoate-vilanterol 100-25 mcg/dose inhalation fosfomycin tromethamine 1 packet PO .weekly 12 weeks lisinopril 10 mg PO DAILY terazosin 5 mg PO BEDTIME 90 days umeclidinium-vilanterol 62.5-25 mcg/actuation (Anoro Ellipta) 1 ea inhalation DAILY HPI Comments Details: Romel is a very pleasant 83-year-old male patient of Dr. Oneil. He has a past medical history of COPD and hypercholesteremia. He presents to the office today for a follow up of his recurrent urinary tract infections, incomplete bladder emptying, and lower urinary tract symptoms. When asked he reports to be doing and feeling well. He reports compliance with finasteride and terazosin as prescribed. He currently denies any bothersome urinary issues or concerns. Previous workup has included microgen testing 09/30 that noted Klebsiella pneumoniae and patient has since completed levofloxacin 500 mg daily for 2 weeks as prescribed. In office urinalysis results reviewed with the patient today. PVR 0 mL. Previous workup has also included a Lasix renogram as CT noted severe hydronephrosis with no obvious obstruction. Renogram noted Left kidney 15% and right kidney 85% of total renal uptake. Left kidney is enlarged with no evidence of obstruction however shows mild peripheral rim cortical perfusion. Presence or absence of underlying obstruction remain indeterminate related to poor renal function resulting in lack of excretion of radiotracer into the previously documented markedly dilated pelvicalyceal system. Right kidney normal perfusion. He discusses at length his continuation and follow-up with vascular, Cardiology, Nephrology, PCP, dermatology, and pulmonology. When asked patient denies any bothersome urinary issues or concerns. He discusses his main concern is his right hip and leg issues he has been experiencing. He discusses having an upcoming appointment at [facility] for further imaging. Labs are as follows BUN: 12/29--17, 05/01--32, 08/02--28, 09/02--19 Creatinine: 12/29--1.24, 05/01--1.35, 08/02--0.94, 09/02--1.01 PSA 09/02--0.6 He denies urinary urgency, urinary frequency, incontinence, nocturia, hematuria, dysuria, foul smelling urine, changes to urinary stream, flank pain, fever, and or chills. He is happy with his current voiding parameters. Review of Systems Eyes Reports no additional complaints ENT Reports no additional complaints Card Reports as per HPI Resp Reports as per HPI GI Reports as per HPI Reports as per HPI Musc Reports no additional complaints Skin/Breast Reports as per HPI Neuro Reports no additional complaints Psych Reports no additional complaints Endo Reports no additional complaints Amrit/Lymph Reports no additional complaints Aller/Immun Reports no additional complaints Physical Exam Const General: cooperative, comfortable, no acute distress, well developed, alert and awake Nutritional Appearance: thin Orientation/consciousness: patient oriented x3 Limitations: ambulation with cane HEENT Head: Yes normal to inspection, Yes normocephalic and Yes atraumatic Ears: hearing grossly normal bilaterally Eyes General: appearance normal, both eyes and all related structures Neck Neck: Yes normal visual inspection and Yes trachea midline Chest Chest palpation & inspection: normal inspection of the chest Resp Effort & Inspection: normal respiratory effort and able to speak in complete sentences Cardio Rate: regular rate GI Inspection: Yes normal to inspection General: Yes no CVA tenderness Back/Spine/Pelvis Back: no CVA tenderness Skin General skin exam: no rashes or lesions noted Neuro General: patient oriented x3 Extrem General: Yes normal to inspection Psych Appearance: grossly normal and well kempt Mental Status: mental status grossly normal Speech and movement: Normal speech and movement present and Clear speech present Affect: normal affect Attitude: cooperative Thought process: Normal thought process present Thought content: Normal thought content present Insight: Fair insight present (Psych) Judgement: Fair judgement present (Psych) Office Procedures Post Void Residual Post Residual Void Post Void Residual (PVR): 40 [id number] Void Residual by ultrasound Results AMB Urinalysis, Automated UA Leukoctes 0 Dayana/uL Last Edit by Wendy Fowler, RMA on 01/24/24 15:49 UA Nitrite Negative Last Edit by Wendy Fowler, RMA on 01/24/24 15:49 UA Urobilinogen 0.2 mg/dL Last Edit by Wendy Fowler, RMA on 01/24/24 15:4 9 UA Protein 0 mg/dL Last Edit by Wendy Fowler, RMA on 01/24/24 15:49 UA pH 5.5 Last Edit by Wendy Fowler, RMA on 01/24/24 15:49 UA Blood 0 Giovanny/uL Last Edit by Wendy Fowler, RMA on 01/24/24 15:49 UA Specific [place] 1.015 Last Edit by Wendy Fowler, RMA on 01/24/24 15: 49 UA Ketone Negative Last Edit by Wendy Fowler, RMA on 01/24/24 15:49 UA Bilirubin 0 mg/dL Last Edit by Wendy Fowler, RMA on 01/24/24 15:49 UA Glucose 0 mg/dL Last Edit by Wendy Fowler, RMA on 01/24/24 15:49 Results Reviewed Results Reviewed: Laboratory Last Values Urine pH (Auto) 5.5 01/24/24 15:34 Specific [place] (Auto) 1.015 01/24/24 15:34 Urine Protein (Auto) 0 mg/dL 01/24/24 15:34 Glucose (UA)(Auto) 0 mg/dL 01/24/24 15:34 Urine Ketones (Auto) Negative 01/24/24 15:34 Urine Blood (Auto) 0 Giovanny/uL 01/24/24 15:34 Urine Nitrite (Auto) Negative 01/24/24 15:34 Urine Bilirubin (Auto) 0 mg/dL 01/24/24 15:34 Urine Urobilinogen (Auto) 0.2 mg/dL 01/24/24 15:34 Leukocyte Esterase (Auto) 0 Dayana/uL 01/24/24 15:34 Assessment & Plan Assessment & Plan (1) Decreased renal function: Code(s): N28.9 - Disorder of kidney and ureter, unspecified Category: Medical (2) Enlarged prostate: Code(s): N40.0 - Benign prostatic hyperplasia without lower urinary tract symptoms Category: Medical (3) Hydronephrosis: Code(s): N13.30 - Unspecified hydronephrosis Category: Medical (4) Urinary tract infection: Code(s): N39.0 - Urinary tract infection, site not specified Category: Medical Plan In office urinalysis results reviewed with the patient today PVR 40 mL. Continue terazosin and finasteride as discussed. He currently denies any bothersome urinary issues or concerns. He reports be happy with current voiding parameters. Discussed, educated, and stressed the importance of drinking water daily. Continue to follow-up with pulmonology, vascular, dermatology, and Nephrology. Discussed, educated, and stressed the importance of limiting/quitting cigarette smoking for overall health and well-being. Follow-up in 6 months with PVR; if not sooner with any issues, concerns, and or questions. Orders: Orders AMB Post Void Residual by ultrasound Today R33.9 - Retention of urine, unspecified AMB Urinalysis Automated Today Z13.9 - Encounter for screening, unspecified Patient Instructions: The patient had an opportunity to ask questions regarding the treatment plan. All questions were answered. Physical exam, labs, and imaging were discussed and reviewed in detail. As well as risks, benefits, and discussion of treatment choices. No major barriers to understanding were identified. The patient expressed understanding and agreement with the above treatment plan. The patient was made aware they should contact our office by phone for worsening of their current condition, the appearance of new symptoms, or with any questions or concerns. Compliance is encouraged with any medications and follow up testing that is ordered. It is a privilege to be allowed the opportunity to participate in? your urological care.? Again, if you have any questions or concerns If you have any questions or concerns please do not hesitate to contact me. The office is [phone]. This note is constructed using voice recognition software. While every effort has been made to ensure accuracy sound effects person errors may have been included. Yours sincerely, JAMEY Sawyer Coding Level of Care Code Est Pt Level 3 (60362) Complex EM visit Add On G2211 Diagnoses Decreased renal function N28.9 Enlarged prostate N40.0 Hydronephrosis N13.30 Urinary tract infection N39.0 CPT Codes Post Residual Void - PVR CPT Code: 20424-Fjpz Void Residual by ultrasound ([id number])
== END 2024-01-24 16:00 | disposition home or self-care (01) ==
LOC: HO.HUSH 15:16
PROVIDERS: Visit Provider Nurse Practitioner Family
DX: N28.9 Disorder of kidney and ureter, unspecified (principal); N40.0 Benign prostatic hyperplasia without lower urinary tract symptoms; N13.30 Unspecified hydronephrosis; N39.0 Urinary tract infection, site not specified; Z13.9 Encounter for screening, unspecified
CPT/HCPCS: 99213; G2211

== ENCOUNTER → 2024-01-24 15:16 | Outpatient (BNVA) | payer MEDICARE, BC, OTHER, SELFPAY | PROVIDERS: Visit Provider Nurse Practitioner Family | DX: N40.1 Benign prostatic hyperplasia with lower urinary tract symptoms (principal); R33.8 Other retention of urine; N28.9 Disorder of kidney and ureter, unspecified; N13.30 Unspecified hydronephrosis; N39.0 Urinary tract infection, site not specified | CPT/HCPCS: 51798; 81003; 99212 ==

== ENCOUNTER 2024-07-24 15:18 | Outpatient (AMB) | payer MEDICARE, BC, OTHER, SELFPAY ==
--- NOTE | 2024-07-24 15:34 | MHC.OFFVIS ---
Intake Visit Reasons: 6m/PVR Intake Note: Patient is Present for Follow Up PVR Urology Medication: Terazosin, Finasteride Antibiotic Allergies: none Blood Thinners: Aspirin Last PVR: 0mls Todays PVR: 37mls Allergies SEASONAL ALLERGIES Allergy (Unknown, Uncoded 01/24/24 20:19) UNKNOWN Medication List - Last Reconciled 07/24/24 by GWENDOLYN SawyerP- albuterol sulfate 90 mcg/actuation inhalation albuterol sulfate mg inhalation aspirin 81 mg PO DAILY atorvastatin 40 mg PO DAILY finasteride 5 mg PO DAILY 90 days fluticasone furoate-vilanterol 100-25 mcg/dose inhalation fosfomycin tromethamine 1 packet PO .weekly 12 weeks lisinopril 10 mg PO DAILY terazosin 5 mg PO BEDTIME 90 days umeclidinium-vilanterol 62.5-25 mcg/actuation (Anoro Ellipta) 1 ea inhalation DAILY HPI Comments Details: Romel is a very pleasant 84-year-old male patient of Dr. Oneil. He has a past medical history of COPD and hypercholesteremia. He presents to the office today for a follow up of his recurrent urinary tract infections, incomplete bladder emptying, and lower urinary tract symptoms. When asked he reports to be doing and feeling well. He reports compliance with finasteride and terazosin as prescribed. He currently denies any bothersome urinary issues or concerns. Previous workup has included microgen testing 09/30 that noted Klebsiella pneumoniae and patient has since completed levofloxacin 500 mg daily for 2 weeks as prescribed. In office urinalysis results reviewed with the patient today. PVR 37 mL. Previous workup has also included a Lasix renogram as CT noted severe hydronephrosis with no obvious obstruction. Renogram noted Left kidney 15% and right kidney 85% of total renal uptake. Left kidney is enlarged with no evidence of obstruction however shows mild peripheral rim cortical perfusion. Presence or absence of underlying obstruction remain indeterminate related to poor renal function resulting in lack of excretion of radiotracer into the previously documented markedly dilated pelvicalyceal system. Right kidney normal perfusion. He discusses at length his continuation and follow-up with vascular, Cardiology, Nephrology, PCP, dermatology, and pulmonology. When asked patient denies any bothersome urinary issues or concerns. He discusses his main concern is his right hip and leg issues he has been experiencing. He discusses having an upcoming appointment at [facility] for further assessment evaluation. He discusses continuing to limit/quit his nicotine dependence. Labs are as follows BUN: 12/29--17, 05/01--32, 08/02--28, 09/02--19 Creatinine: 12/29--1.24, 05/01--1.35, 08/02--0.94, 09/02--1.01 PSA 09/02--0.6 He denies urinary urgency, urinary frequency, incontinence, nocturia, hematuria, dysuria, foul smelling urine, changes to urinary stream, flank pain, fever, and or chills. He is happy with his current voiding parameters. Review of Systems Eyes Reports no additional complaints ENT Reports no additional complaints Card Reports as per HPI Resp Reports as per HPI GI Reports as per HPI Reports as per HPI Musc Reports no additional complaints Skin/Breast Reports as per HPI Neuro Reports no additional complaints Psych Reports no additional complaints Endo Reports no additional complaints Amrit/Lymph Reports no additional complaints Aller/Immun Reports no additional complaints Physical Exam Const General: cooperative, comfortable, no acute distress, well developed, alert and awake Nutritional Appearance: thin Orientation/consciousness: patient oriented x3 Limitations: ambulation with cane HEENT Head: Yes normal to inspection, Yes normocephalic and Yes atraumatic Ears: hearing grossly normal bilaterally Eyes General: appearance normal, both eyes and all related structures Neck Neck: Yes normal visual inspection and Yes trachea midline Chest Chest palpation & inspection: normal inspection of the chest Resp Effort & Inspection: normal respiratory effort and able to speak in complete sentences Cardio Rate: regular rate GI Inspection: Yes normal to inspection General: Yes no CVA tenderness Back/Spine/Pelvis Back: no CVA tenderness Skin General skin exam: no rashes or lesions noted Neuro General: patient oriented x3 Extrem General: Yes normal to inspection Psych Appearance: grossly normal and well kempt Mental Status: mental status grossly normal Speech and movement: Normal speech and movement present and Clear speech present Affect: normal affect Attitude: cooperative Thought process: Normal thought process present Thought content: Normal thought content present Insight: Fair insight present (Psych) Judgement: Fair judgement present (Psych) Office Procedures Post Void Residual Post Residual Void Post Void Residual (PVR): 37 [id number] Void Residual by ultrasound Results AMB Urinalysis, Automated UA Leukoctes 0 Dayana/uL Last Edit by Wendy Fowler, A on 07/24/24 15:55 UA Nitrite Negative Last Edit by Wendy Fowler, A on 07/24/24 15:55 UA Urobilinogen 0.2 mg/dL Last Edit by Wendy Fowler, A on 07/24/24 15:55 UA Protein 15 mg/dL Last Edit by Wendy Fowler, RMA on 07/24/24 15:55 UA pH 5.5 Last Edit by Wendy Fowler, RMA on 07/24/24 15:55 UA Blood 0 Giovanny/uL Last Edit by Wendy Fowler, A on 07/24/24 15:55 UA Specific [place] 1.020 Last Edit by Wendy Fowler, A on 07/24/24 15:55 UA Ketone Negative Last Edit by Wendy Fowler, A on 07/24/24 15:55 UA Bilirubin 0 mg/dL Last Edit by Wendy Fowler, A on 07/24/24 15:55 UA Glucose 0 mg/dL Last Edit by Wendy Fowler, A on 07/24/24 15:55 Results Reviewed Results Reviewed: Laboratory Last Values Urine pH (Auto) 5.5 07/24/24 15:40 Specific [place] (Auto) 1.020 07/24/24 15:40 Urine Protein (Auto) 15 mg/dL 07/24/24 15:40 Glucose (UA)(Auto) 0 mg/dL 07/24/24 15:40 Urine Ketones (Auto) Negative 07/24/24 15:40 Urine Blood (Auto) 0 Giovanny/uL 07/24/24 15:40 Urine Nitrite (Auto) Negative 07/24/24 15:40 Urine Bilirubin (Auto) 0 mg/dL 07/24/24 15:40 Urine Urobilinogen (Auto) 0.2 mg/dL 07/24/24 15:40 Leukocyte Esterase (Auto) 0 Dayana/uL 07/24/24 15:40 Assessment & Plan Assessment & Plan (1) Decreased renal function: Code(s): N28.9 - Disorder of kidney and ureter, unspecified Category: Medical (2) Enlarged prostate: Code(s): N40.0 - Benign prostatic hyperplasia without lower urinary tract symptoms Category: Medical (3) Hydronephrosis: Code(s): N13.30 - Unspecified hydronephrosis Category: Medical (4) Urinary tract infection: Code(s): N39.0 - Urinary tract infection, site not specified Category: Medical Plan In office urinalysis results reviewed with the patient today PVR 37 mL. Continue terazosin and finasteride as discussed. He currently denies any bothersome urinary issues or concerns. He reports be happy with current voiding parameters. Discussed, educated, and stressed the importance of drinking water daily. Continue to follow-up with pulmonology, vascular, dermatology, and Nephrology. Discussed, educated, and stressed the importance of limiting/quitting cigarette smoking for overall health and well-being. Follow-up in 6 months with PSA and PVR; if not sooner with any issues, concerns, and or questions. Orders: Orders AMB Urinalysis Automated Today Z13.9 - Encounter for screening, unspecified AMB Post Void Residual by ultrasound Today N40.0 - Benign prostatic hyperplasia without lower urinary tract symptoms Prostate Specific Antigen Today N40.0 - Benign prostatic hyperplasia without lower urinary tract symptoms Patient Instructions: The patient had an opportunity to ask questions regarding the treatment plan. All questions were answered. Physical exam, labs, and imaging were discussed and reviewed in detail. As well as risks, benefits, and discussion of treatment choices. No major barriers to understanding were identified. The patient expressed understanding and agreement with the above treatment plan. The patient was made aware they should contact our office by phone for worsening of their current condition, the appearance of new symptoms, or with any questions or concerns. Compliance is encouraged with any medications and follow up testing that is ordered. It is a privilege to be allowed the opportunity to participate in? your urological care.? Again, if you have any questions or concerns If you have any questions or concerns please do not hesitate to contact me. The office is [phone]. This note is constructed using voice recognition software. While every effort has been made to ensure accuracy distillation operator helper errors may have been included. Yours sincerely, JAMEY Sawyer Coding Level of Care Code Est Pt Level 3 (72824) Complex EM visit Add On G2211 Diagnoses Decreased renal function N28.9 Enlarged prostate N40.0 Hydronephrosis N13.30 Urinary tract infection N39.0 CPT Codes Post Residual Void - PVR CPT Code: 29695-Mkvi Void Residual by ultrasound ([id number])
--- OUTSIDE RECORDS SUMMARY | 2024-07-24 18:06 | XMS_ITS | Continuity of Care Document ---
Author Name [facility] Organization [facility] Care Team Providers Care Scalp Treatment Specialist Name Role Phone [facility] Unavailable Unavailable Immunizations Combined list of available immunizations from the Department of Defense and Veterans Affairs facilities. Immunization Series Date Given Administered By Site Reaction Lot Number CVX Code Drug Recreational Facilities Motel Manager Status Comments Source influenza virus vaccine, whole virus 1 1998 Unknown, Provider [id number] Valeria (WAL) complet ed influenza virus vaccine, whole virus DoD tuberculin skin test; purified protein derivative solution, intradermal 1 1998 Unknown, Provider [id number] Lisa (CON) complet ed tuberculi n skin test; purified protein derivativ e solution, intraderm al DoD typhoid vaccine, live, oral 1 1998 Unknown, Provider [id number] Harriet (BP) complet ed typhoid vaccine, live, oral DoD measles, mumps and rubella virus vaccine 2 1997 Unknown, Provider [id number] Jimenez (AB) complet ed measles, mumps and rubella virus vaccine DoD influenza virus vaccine, whole virus 2 1997 Unknown, Provider [id number] Lisa (CON) complet ed influenza virus vaccine, whole virus DoD tuberculin skin test; purified protein derivative solution, intradermal 1 1997 Unknown, Provider [id number] Lisa (CON) complet ed tuberculi n skin test; purified protein derivativ e solution, intraderm al DoD hepatitis A vaccine, adult dosage 2 1997 Unknown, Provider [id number] Shafer Merck (MSD) complet ed hepatitis A vaccine, adult dosage DoD hepatitis B vaccine, adult dosage 3 1997 Unknown, Provider [id number] SmithKline (SKB) complet ed hepatitis B vaccine, adult dosage DoD hepatitis B vaccine, adult dosage 2 1996 Unknown, Provider [id number] Guevara Merck (MSD) complet ed hepatitis B vaccine, adult dosage DoD hepatitis A vaccine, adult dosage 1 1996 Unknown, Provider Carolina Shafer Merck (MSD) complet ed hepatitis A vaccine, adult dosage DoD tuberculin skin test; purified protein derivative solution, intradermal 1 1996 Unknown, Provider [id number] Lisa (CON) complet ed tuberculi n skin test; purified protein derivativ e solution, intraderm al DoD influenza virus vaccine, whole virus 1 1996 Unknown, Provider [id number] 16 Valeria (Inactive) ([place]) complet ed influenza virus vaccine, whole virus DoD hepatitis B vaccine, adult dosage 1 1996 Unknown, Provider [id number] Lisa (CON) complet ed hepatitis B vaccine, adult dosage DoD typhoid vaccine, parenteral, acetone-kille d, dried ([place] ) 2 1995 Unknown, Provider 53 () complet ed typhoid vaccine, parentera l, acetone-k illed, dried ([place] ) DoD yellow fever vaccine 1 1995 Unknown, Provider 37 () complet ed yellow fever vaccine [facility] tetanus and diphtheria toxoids, adsorbed, preservative free, for adult use (2 Lf of tetanus toxoid and 2 Lf of diphtheria toxoid) 1 1992 Unknown, Provider 09 () complet ed tetanus and diphtheri a toxoids, adsorbed, preservat lyudmila free, for adult use (2 Lf of tetanus toxoid and 2 Lf of diphtheri a toxoid) [facility] trivalent poliovirus vaccine, live, oral 1 1962 Unknown, Provider 02 () complet trivalent polioviru s vaccine, live, oral [facility] Social History Combined list of available smoking, tobacco, and other social history from Department of Defense and Veterans Affairs facilities. Social History Type Response Date Comment [facility] This section is an empty social history section. DoD
--- OUTSIDE RECORDS SUMMARY | 2024-07-24 18:07 | XMS_ITS | Continuity of Care Document ---
Author Organization [facility] [address] [place] [address] Phone [phone] Problems Active Problems Provider Date Hyperlipidemia Corey Oneil M.D. Onset: 1 Chronic obstructive lung disease Corey hunt M.D. Onset: 04/25/2022 Coronary atherosclerosis Corey Oneil M.D. Onset: 04/25/2022 Replacement of aortic valve Ruth Diego Onset: 04/25/2022 Cataract extraction and inse rtion of intraocular lens Corey Oneil M.D. Onset: 04/25/2022 H/O: atrial fibrillation Corey Oneil M.D. Onset: 04/25/2022 Abdominal aortic aneurysm Crow Diego Onset: 11/03/2023 Social History Type Date Description Comments Sex Unknown ETOH Use Occasionally consumes alcoho l Tobacco Use Start: Unknown End: Unknown Patient is a former smoker Smoking Status Reviewed: 05/01/23 Patient is a former smoker Allergies and adverse reactions Description No Known Drug Allergies Medications Active Medications SIG Qnty Indications Ordering Provider Date [id number] Tablets 1 by mouth every day 90tabs Corey Oneil M.D. 08/02/2023 Terazosin HCL5mg Capsules take 1 capsule by mouth at bed 90caps Corey Oneil M.D. 08/02/[address] 1 by mouth every day Corey Oneil M.D. 04/25/2022 Albuterol Sulfate TFM875(90Base) mcg/Act Aerosol Inhale 2 Puffs Into The Lungs Every 4 Hours as Needed For Cough Or Wheezing Unknown Qswkllnxzl30xg Tablets Take 1 Tablet By Mouth Daily 90tabs Corey Oneil M.D. Atorvastatin [id number] Tablets Take 1 Tablet By Mouth Daily Unknown Virginie [id number]/Act Francie Hernandez MD Vital Signs Date Vital Result Comment 03/19/2024 2:55pm BP Systolic 120 mmHg BP Diastolic 60 mmHg Heart Rate 72 /min Height 65 inches 5'5 Weight 105.12 lb BMI (Body Mass Index) 17.5 kg/m2 Results Test Acquired Date Facility Test Result H/L Range Note Laboratory test finding 08/02/2023 [facility] TSH With Reflex To FT4 1.18 uIU/mL (0.4-4. 2) Urinalysis Complete 10/17/2022 [facility] Appear/Color LIGHT YELLOW 1 SP. [place] 1.016 (1.002- 1.030) Urine PH 6.0 (5.0-8. 0) Urine Albumin TRACE Abnormal (Neg) Urine Glucose NEGATIVE (Neg) Urine Ketones NEGATIVE (Neg) Urine Bilirubin NEGATIVE (Neg) Urine Hemoglobin NEGATIVE (Neg) Urine Nitrite NEGATIVE (Neg) Urine Leukocyte NEGATIVE (Neg) Urobilinogen NORMAL mg/dL (Norm) Urine WBCs 1 /HPF (0-5) Urine RBCs 1 /HPF (0-3) Complete Abc With Diff 10/17/2022 [facility] WBC 9.8 K/MM3 (4.0-11 .0) RBC 4.65 M/MM3 Low (4.70-6 .10) HGB 14.1 GM/DL (13.7-1 7.1) HCT 43.1 % (40.5-5 0.0) MCV 92.7 FL (80.0-9 4.0) MCH 30.3 pg (27.0-3 4.0) MCHC 32.7 g/dL Low (33.0-3 7.0) PLT 173 K/MM3 (150-46 0) RDW-SD 49.1 FL High (<47.0) MPV 10.9 FL (9.4-12 .4) Automated NRBC 0.0 #/100WBC'S Abs. NRBC 0.0 K/MM3 Neut # 5.9 K/MM3 (1.3-7. 0) Lymph # 2.4 K/MM3 (0.8-3. 1) Starr# 1.0 K/MM3 (0.4-1. 3) Eo # 0.4 K/MM3 (0.0-0. 4) Baso # 0.1 K/MM3 (0.0-0. 1) Abs. Imm Gran 0.0 K/MM3 Neut 60.1 % (44-76) Lymph 24.9 % (15-43) Monocyte 10.2 % (4.5-10 .5) Eo 4.0 % (0-6) Baso 0.5 % (0-2) Imm Gran 0.3 % Comprehensive Metabolic Panl 10/17/2022 [facility] Glucose 90 mg/dL (70-99) 2 BUN 21 mg/dL (8-23) Creatinine 1.2 mg/dL (0.7-1. 2) Sodium 146 mmol/L High (133-14 5) Potassium 5.1 mmol/L (3.6-5. 2) Chloride 107 mmol/L (98-107 ) Bicarbonate 30 mmol/L High (22-29) Anion Gap 9 (4-17) Albumin 3.8 GM/DL (3.4-4. 8) Calcium 8.9 mg/dL (8.6-10 .5) Bilirubin,Total 0.3 mg/dL (0-1.2 ) Total Protein 5.9 GM/DL Low (6.2-8. 2) Ag Ratio 1.8 Ast 17 U/L (0-40) Alk Phos 119 U/L (40-129 ) Alt 18 U/L (0-41) Estimated GFR Creatinine 60 ML/MIN/1.7 3M2 3 Lipid Panel 10/17/2022 [facility] Cholesterol, Total 160 mg/dL (<200) Triglyceride 90 mg/dL (<150) 4 HDL Chol 66 mg/dL (>39) LDL Cholesterol, Calculated 76 mg/dL (0-130) Non HDL Cholesterol (Calc) 94 mg/dL (<160) Laboratory test finding 10/17/2022 [facility] TSH With Reflex To FT4 1.24 uIU/mL (0.4-4. 2) Laboratory test finding 04/27/2022 [facility] TSH With Reflex To FT4 <pending> 1 CLEAR 2 Patient not fasting 3 Creatinine based est imated glomerular filtration (eGFR) in adults is calculated using the [employer] recommended 2020 CKD-EPI equation. Estimates GFR from serum creatinine, age and sex. 4 Patient not fasting Medical Devices Description No Information Available Encounters Type Date Location Provider Dx Diagnosis Office Visit 03/19/2024 3:00p Main Office Corey Oneil M.D. I25.10 Athscl heart disease of [place] coronary artery w/o ang pctrs E78.5 Hyperlipidemia, unsp ecified I71.40 Abdominal aortic ane urysm, without rupture, unspecified F17.210 Nicotine dependence, cigarettes, uncomplicated J44.9 Chronic obstructive pulmonary disease, unspecified Assessments Date Code Description Provider 03/19/2024 I25.10 Atherosclerotic heart disease of [place] coronary artery without angina pectoris Corey Oneil M.D. 03/19/2024 E78.5 Hyperlipidemia Corey joshua M.D. 03/19/2024 I71.40 Abdominal aortic aneurysm Souleymane Oneil M.D. 03/19/2024 F17.210 Moderate cigarette smoker (1 0-19 cigs/day) Corey Oneil M.D. 03/19/2024 J44.9 Chronic obstructive lung dis ease Corey Oneil M.D. Plan of Treatment Future Appointment(s):* 09/17/2024 3:00 pm - Corey Oneil M.D. at Main Office 03/19/2024 - Corey Oneil M.D.* I25.10 Atherosclerotic heart disease of [place] coronary artery without angina pectoris * E78.5 Hyperlipidemia * I71.40 Abdominal aortic aneurysm * F17.210 Moderate cigarette smoker (10-19 cigs/day) * J44.9 Chronic obstructive lung disease Functional Status Description No Information Available Mental Status Description No Information Available Referrals Refer to Reason for Referral Status Appt Fina Tamayo MD TRIGGER FINGER RIGHT SECO ND FINGER Closed 05/28/[address] [place] [address] [phone] [facility] 4.3 CM AORTIC ANEURYSM Closed 09/05/20[address] [place] [address] [phone]
== END 2024-07-24 16:12 | disposition home or self-care (01) ==
LOC: HO.HUSH 15:18
PROVIDERS: Visit Provider Nurse Practitioner Family
DX: N28.9 Disorder of kidney and ureter, unspecified (principal); N40.0 Benign prostatic hyperplasia without lower urinary tract symptoms; N13.30 Unspecified hydronephrosis; N39.0 Urinary tract infection, site not specified; Z13.9 Encounter for screening, unspecified
CPT/HCPCS: 99213; G2211

== ENCOUNTER → 2024-07-24 15:18 | Outpatient (BNVA) | payer MEDICARE, BC, OTHER, SELFPAY | PROVIDERS: Visit Provider Nurse Practitioner Family | DX: N40.0 Benign prostatic hyperplasia without lower urinary tract symptoms (principal); N28.9 Disorder of kidney and ureter, unspecified; N13.30 Unspecified hydronephrosis; N39.0 Urinary tract infection, site not specified; F17.210 Nicotine dependence, cigarettes, uncomplicated; Z79.899 Other long term (current) drug therapy | CPT/HCPCS: 51798; 81003; 99212 ==

== ENCOUNTER 2024-09-19 20:48 | Inpatient (IN) | payer MEDICARE, BC, OTHER, SELFPAY ==
--- NOTE | ~2024-09-19 | XR_ITS ---
CLINICAL HISTORY: copd. sob 1 view chest x-ray Comparison: CT/[place]/SR - CT ANGIO ABDOMEN PELVIS - 07/13/23 21:24 EST CR/WI - XR CHEST 2V - 04/09/20 14:57 EDT Findings: No consolidation or effusion. Heart size within normal limits. TAVR stent in place. Hiatal hernia suspected. Not well seen. Osteopenia. No acute fracture. IMPRESSION: 1. No consolidation. 2. Suspected hiatal hernia. This document has been electronically signed by: Oumar Huber MD on 09/19/2024 22:43:26
--- NOTE | ~2024-09-19 | CT_ITS ---
CLINICAL HISTORY: r o pneumonia, sob, septic CT chest without contrast Comparison: CT/[place]/SR - CT ANGIO ABDOMEN PELVIS - 07/13/23 21:24 EST Findings: Heart size normal. TAVR stent in place. Severe coronary artery calcifications. Small amount of mucous debris in the trachea image 46. There are several scattered areas of mild reticulonodular patchy opacity in both lungs. No effusion or pneumothorax. Mild bronchial wall thickening. Severely hydronephrotic left kidney again noted. Cholecystectomy. The bones are intact. IMPRESSION: Multifocal lung opacities suggesting infectious etiology. Recommend follow-up. This document has been electronically signed by: Oumar Huber MD on 09/19/2024 23:52:27
--- NOTE | ~2024-09-19 | CT_ITS ---
EXAMINATION: CT CHEST ANGIOGRAPHY WITH IV CONTRAST INDICATION: hypoxia, elevated d-dimer COMPARISON: Comparison is made with the prior examination dated 09/19/2024. TECHNIQUE: Helical CT scan of the chest was performed following administration of intravenous contrast (65 mL Omnipaque 350). The contrast bolus was timed to optimally opacify the pulmonary arteries. Thin sections were obtained through the pulmonary arteries. Coronal and sagittal reformatted images were generated. 3D/MIP reconstructed images are also obtained and reviewed. This CT exam was performed with one or more of the following dose reduction techniques: automated exposure control, adjustment of the mA and/or kV according to patient size, use of iterative reconstruction technique. DLP: 168 mGy-cm CHEST: THYROID: The thyroid gland is unremarkable. PULMONARY ARTERIES: No intraluminal filling defects are identified within the pulmonary arteries to suggest pulmonary emboli. LUNGS: There are emphysematous changes bilaterally. Again seen are scattered patchy groundglass and airspace opacities in both upper lobes which may represent pneumonia. There is dependent atelectasis in both lower lobes. MEDIASTINUM: There is no mediastinal lymphadenopathy. GREG: There is no hilar lymphadenopathy. CARDIOVASCULATURE: The heart is enlarged. There is no pericardial effusion. The patient is status post aortic valve replacement. The thoracic aorta demonstrates atherosclerotic calcification, but is normal in caliber. DEGREE OF CORONARY CALCIFICATION: severe PLEURA: There is no pleural effusion. No pneumothorax. MAIN AIRWAYS: The mainstem bronchi and proximal branches are patent. AXILLA: There is no axillary lymphadenopathy. UPPER ABDOMEN: There is a small hiatal hernia. The left kidney demonstrates marked cortical thinning and severe hydronephrosis, as noted on prior imaging. There is dilatation of the abdominal aorta measuring at least 3.2 cm in diameter. BONES AND SOFT TISSUES: There is degenerative disc disease of the spine. CT/CT angio chest PE protocol IMPRESSION: No evidence of pulmonary emboli. Scattered patchy groundglass and airspace opacities in both upper lobes which may represent pneumonia. Follow-up is recommended to document resolution. Electronically signed by: Deandre Lyon MD 09/20/2024 11:17 AM EDT
[2024-09-19 20:53] VITALS: BP 87/52; PULSE 105; O2SAT 92
[2024-09-19 20:58] VITALS: BP 104/53; PULSE 99; RESP 22; TEMP 36.6; O2SAT 95; BMI 16.7
--- NOTE | 2024-09-19 21:04 | ECG_ITS ---
Test Reason : SOB Blood Pressure : */* mmHG Vent. Rate : 93 BPM Atrial Rate : 93 BPM P-R Int : 126 ms QRS Dur : 78 ms QT Int : 360 ms P-R-T Axes : 92 -20 67 degrees QTcB Int : 447 ms Normal sinus rhythm Possible Inferior infarct , age undetermined Possible Anterior infarct , age undetermined Abnormal ECG When compared with ECG of 30-Mar-2015 18:47, QRS duration has decreased Borderline criteria for Inferior infarct are now Present Referred By: Generic ED Physician Electronically Signed By: DARI GOODRICH
--- NOTE | 2024-09-19 21:30 | ED.SOB ---
HPI - SOB/Dyspnea General Chief Complaint: Dyspnea Stated Complaint: sepsis alert Time Seen by Provider: 09/19/24 21:07 Source: patient and EMS Mode of arrival: EMS Limitations: no limitations History of Present Illness ED Provider: Dr. Demetrice Davis HPI Narrative: Patient comes to the emergency room complaining shortness of breath. According to the patient and his daughter who is at bedside, patient has been having a bit of left-sided chest pain occasionally in between the ribs. Patient has been coughing a bit more than usual. However, today patient is significantly became more short of breath, wheezing. Patient tried his albuterol pump without any improvement. Patient states that he is known to have COPD. Patient denies any fever or any chills. Related Data Home Medications ?Medication ?Instructions ?Recorded ?Confirmed albuterol sulfate 2.5 mg/3 mL mg inhalation 05/10/23 07/24/24 (0.083 %) solution for nebulization albuterol sulfate 90 mcg/actuation inhalation 05/10/23 07/24/24 aerosol inhaler aspirin 81 mg tablet,delayed 81 mg PO DAILY 05/10/23 07/24/24 release atorvastatin 40 mg tablet 40 mg PO DAILY 05/10/23 07/24/24 lisinopril 10 mg tablet 10 mg PO DAILY 05/10/23 07/24/24 umeclidinium 62.5 mcg-vilanterol 1 ea inhalation DAILY 05/10/23 07/24/24 25 mcg/actuation powdr for inhalation (Anoro Ellipta) fluticasone furoate 100 inhalation 06/22/23 07/24/24 mcg-vilanterol 25 mcg/dose inhalation powder Previous Rx's ?Medication ?Instructions ?Recorded finasteride 5 mg tablet 5 mg PO DAILY 90 days #90 tabs 06/22/23 fosfomycin tromethamine 3 gram 1 packet PO .weekly UTI 08/21/23 oral packet suppression 12 weeks #12 ea terazosin 5 mg capsule 5 mg PO BEDTIME 90 days #90 caps 09/20/23 Allergies Allergy/AdvReac Type Severity Reaction Status Date / Time SEASONAL ALLERGIES Allergy Unknown Unknown Uncoded 09/19/24 21:07 Review of Systems Review of Systems: Constitutional : No Weight loss, No Fever, No Chills, No Night Sweats, No Fatigue, No Malaise ENT/Mouth : No Hearing loss, No Ear Pain, No Nasal Congestion, No Sinus Pain, No Hoarseness, No sore throat, No Rhinorrhea, No Swallowing Difficulty Eyes: No Eye Pain, No Swelling, No Redness, No Foreign Body, No Discharge, No Vision Changes Cardiovascular : No Chest Pain, No SOB, No Dyspnea on Exertion, No Orthopnea, No Edema, No Palpitations Respiratory : Complaining of cough, shortness of breath, wheezing Gastrointestinal : No Nausea, No Vomiting, No Diarrhea, No Constipation, No abdominal Pain, No Hematochezia, No Melena Genitourinary : no irregular bleeding, No Dysuria, No Urinary Frequency, No Hematuria, No Urinary Incontinence, No Urgency, No Flank Pain, No Urinary Flow Changes, No Hesitancy Musculoskeletal : No joint pain, No Myalgias, No Joint Swelling Skin : No Skin Lesions, No rash Neuro : No Weakness, No Numbness, No Paresthesias, No Loss of Consciousness, No Dizziness, No Headache Psych : No Anxiety/Panic, No Depression, No SI/HI/AH/VH, No Social Issues, Heme/Lymph: No Bruising, No Bleeding,No Lymphadenopathy Endocrine : No Polyuria, No Polydipsia, No Temperature Intolerance [facility] Past Medical History Medical History (Updated 09/20/24 @ 00:15 by Demetrice Davis MD) COPD (chronic obstructive pulmonary disease) Social History Social History Smoked in Last 30 Days: Yes Use of substances other than those prescribed or required for medical reasons: No Advance Directives: No Advance Directives Information Provided: Yes Do you have a plan to hurt others: No Plan Physical Exam Vital Signs: Vital Signs: Last Vital Signs Temp 98.1 F 09/19/24 23:46 Pulse 85 09/19/24 23:46 Resp 16 09/19/24 23:46 BP 104/56 L 09/19/24 23:46 Pulse Ox 90 L 09/19/24 23:46 O2 Del Method Room Air 09/19/24 23:46 BMI result Body Mass Index 16.7 Const: Other: Appearance: Alert. Oriented X3. No acute distress. Eyes: Pupils equal, round and reactive to light. ENT: Pharynx normal. Neck: Normal inspection. Neck supple. No lymph nodes noted. No crepitus CVS: Normal heart rate and rhythm. Pulses normal. Normal S1 and S2 Respiratory: No respiratory distress. bilateral mild wheezing, moderate air movement, no rales or crackles, speaking in full sentences, O2 sat 95% on room air Abdomen: Soft and nontender. No rigidity. No distention. Skin: Skin warm and dry. Normal skin color. Normal skin turgor. Extremities: No lower extremity edema. No Lacerations. No Rash Neuro: Oriented X 3. No motor deficit. No sensory deficit. Moving all extremities. No slurred speech. CN 2 through 12 grossly intact Psych: calm, cooperative, normal affect Course Course Course Narrative: patient received a DuoNeb treatment , given by the paramedics. patient receiving Solu-Medrol, magnesium and more breathing treatments. Patient reports having a strange sensation / pain between the ribs on the left side for about a week, patient empirically being treated with the IV fluids ceftriaxone, patient may have pneumonia. At this time, all of patient's labs and imaging pending. Medications Administered Generic Name Dose Route Start Last Admin Trade Name Freq PRN Reason Stop Dose Admin Azithromycin 500 mg/ Sodium 250 mls @ 125 mls/hr 09/19/24 22:46 09/19/24 23:45 Chloride IV 09/20/24 00:45 125 mls/hr ONCE ONE Administration Discontinued Medications Generic Name Dose Route Start Last Admin Trade Name Freq PRN Reason Stop Dose Admin Ceftriaxone Sodium 1 gm 09/19/24 21:23 09/19/24 22:03 Ceftriaxone Sodium 1 Gm Vial IVPUSH 09/19/24 21:24 1 gm ONCE ONE Administration Albuterol Sulfate 2.5 mg/ 0 mg 09/19/24 21:36 09/19/24 21:54 Albuterol/Ipratropium 3 ml INHALE 09/19/24 21:37 1 dose ONCE ONE Administration Sodium Chloride 1,500 mls @ 999 mls/hr 09/19/24 21:23 09/19/24 23:45 Ns IVCONT 09/19/24 22:53 Infused .Q1H31M ONE Infusion Magnesium Sulfate 2 gm in 50 mls @ 25 mls/hr 09/19/24 21:33 09/19/24 22:03 Magnesium Sulfate/H2o IV 09/19/24 23:32 25 mls/hr ONCE ONE Administration Methylprednisolone Sodium Succinate 125 mg 09/19/24 21:33 09/19/24 22:03 Methylprednisolone Sod Succ 125 Mg/2 Ml Vial IVPUSH 09/19/24 21:34 125 mg ONCE ONE Administration Medical Decision Making Medical Decision Making [facility] Narrative: At 22:37, we will receive a phone call from the lab, patient's white blood cell count is 13.5, lactic acid is 4.5. At this time, sepsis alert was called. Patient has already been given IV fluids and antibiotics. As mentioned above, on arrival received both. Blood pressure remained steady 104/53, heart rate 91, rectal temperature 99.6 degrees, oxygen saturation 94% on room air. My interpretation of labs: Patient's hematology shows a white blood cell count of 13.5, otherwise normal hemoglobin/hematocrit, platelets. Blood gases within normal limits, normal pH, pCO2 48, bicarb 27. No significant abnormality in patient's chemistry. Lactic acid 4.5. The lactic acid elevation Could potentially be due to multiple nebulization treatments versus sepsis my interpretation of chest x-ray: Mild vascular congestion and infiltrates bilaterally. Official report pending. I will add azithromycin to patient's antibiotics x-ray report: No consolidation CT scan of the chest: Multifocal lung opacities suggesting infectious etiology patient has already being treated for pneumonia. Admission pending serology report is negative for RSV COVID and flu patient's oxygen saturation drops to 86% at rest, patient now on 3 L of O2 I discussed the patient with Dr. Mauricio from the Medicine team, patient being admitted 00:40 Focus exam done Differential Diagnosis Differential Diagnoses: The differential diagnosis associated with the presentation includes ( COPD, pneumonia, asthma exacerbation) Admission/Observation Consideration of admission/observation: Escalation of care including admission/observation considered Consult Healthcare Provider Management of the patient was discussed with: Hospitalist Lab Data [facility] Lab Attestation statement: I reviewed the patient's lab results. 09/19/24 22:01 09/19/24 22:01 Labs: Lab Results 09/19/24 09/19/24 09/19/24 Range/Units 22:00 22:01 22:09 WBC 13.5 H (4.8-10.8) X10*3/uL RBC 5.77 D (4.60-5.80) X10*6/uL Hgb 17.3 D (14.0-18.0) g/dl Hct 52.0 D (42.0-52.0) % MCV 90.1 (80.0-98.0) fL MCH 30.0 (27.0-33.0) pg MCHC 33.3 (31.0-36.0) g/dl RDW 15.4 (11.0-16.0) % Plt Count 189 D (160-400) X10*3/uL MPV 9.9 (9.4-12.4) fL Immature Gran % (Auto) 0.4 (0.0-0.4) % Neut % (Auto) 84.2 H (45-73) % Lymph % (Auto) 7.2 L (20-40) % Custer % (Auto) 7.8 (2-11) % Eos % (Auto) 0.0 (0-4) % Baso % (Auto) 0.4 (0-2) % Lymph # (Auto) 1.0 L (1.2-4.9) X10*3/uL Custer # (Auto) 1.1 (0.1-1.2) X10*3/uL Eos # (Auto) 0.0 (0.0-0.4) X10*3/uL Baso # (Auto) 0.1 (0.0-0.2) X10*3/uL Abs Immat Gran (auto) 0.06 H (0.00-0.03) X10*3/uL Absolute Neuts (auto) 11.4 H (2.0-8.3) x10*3/uL Absolute Nucleated RBC 0.000 (0.0-0.012) X10*3/uL Nucleated RBC % (auto) 0.0 (0.0-0.2) /100WBC VBG pH 7.35 (7.32-7.43) VBG pCO2 48 mmHg VBG pO2 25 mmHg VBG HCO3 27 H (22-26) mmol/L VBG O2 Saturation 31.0 % VBG Base Excess 0.9 mmol/L Sodium 142 (135-145) mmol/L Potassium 4.7 (3.3-5.1) mmol/L Chloride 107 (96-108) mmol/L Carbon Dioxide 21 L (22-29) mmol/L Anion Gap 19 (12-20) BUN 24 H (9-16) mg/dL Creatinine 1.22 (0.5-1.4) mg/dL Estim Creat Clear Calc 29.9 Estimated GFR 57 Random Glucose 160 H (60-115) mg/dL Lactic Acid 4.5 H* (0.5-2.0) mmol/L Calcium 9.3 (8.4-10.2) mg/dL Total Bilirubin 1.7 H (0.0-1.0) mg/dL Direct Bilirubin 0.6 H (0.0-0.5) mg/dL AST 17 (5-37) U/L ALT 13 (0-40) U/L Alkaline Phosphatase 98 (39-117) U/L Troponin I High Sens 42.4 H (<3.5-35.0) ng/L B-Natriuretic Peptide 422 H (<100) pg/mL Total Protein 8.0 (6.5-8.0) g/dL Albumin 3.4 L (3.5-5.0) g/dL Influenza Type A (PCR) NEGATIVE (Negative) Influenza Type B (PCR) NEGATIVE (Negative) RSV RNA Qual (PCR) NEGATIVE (Negative) SARS-CoV-2 RNA (RT-PCR) NEGATIVE (Negative) Independent Interpretation I performed an independent interpretation of an: EKG ( my interpretation of EKG: Normal sinus rhythm, heart rate 93, no ST segment depression or elevation, no T-wave inversion, QTC 447), Plain X-Ray and CT Scan Radiology Impression Discussion of test interpretation with radiology: I have reviewed the radiologist's reading. Radiologist Impression: Heart size normal. TAVR stent in place. Severe coronary artery calcifications. Small amount of mucous debris in the trachea image 46. There are several scattered areas of mild reticulonodular patchy opacity in both lungs. No effusion or pneumothorax. Mild bronchial wall thickening. Severely hydronephrotic left kidney again noted. Cholecystectomy. The bones are intact. IMPRESSION: Multifocal lung opacities suggesting infectious etiology. Recommend follow-up. Independent Historian Clinical information obtained from an independent historian. History obtained from or confirmed by: Other ( patient's daughter) Critical Care Time Critical Care Time Critical Care Time: Yes Total Critical Care Time: 60 Attestation: I have personally provided critical care time. Time includes review of lab data, radiology results, discussion with consultants, and monitoring for potential decompensation. Intervention performed as documented. Discharge Plan Discharge Clinical Impression: Pneumonia, Acute exacerbation of chronic obstructive pulmonary disease Patient Disposition: Admitted As Inpatient Prescriptions: No Action fosfomycin tromethamine 3 gram packet 1 packet PO .weekly 84 Days Qty: 12 0RF Rx Instructions: One dose (one packet) every week for 12 weeks for UTI suppression terazosin 5 mg capsule 5 mg PO BEDTIME 90 Days Qty: 90 1RF lisinopril 10 mg tablet 10 mg PO DAILY albuterol sulfate 90 mcg/actuation HFA aerosol inhaler inhalation atorvastatin 40 mg tablet 40 mg PO DAILY Anoro Ellipta 62.5-25 mcg/actuation blister with device 1 ea inhalation DAILY albuterol sulfate 2.5 mg /3 mL (0.083 %) solution for nebulization inhalation aspirin 81 mg tablet,delayed release (DR/EC) 81 mg PO DAILY fluticasone furoate-vilanterol 100-25 mcg/dose blister with device inhalation finasteride 5 mg tablet 5 mg PO DAILY 90 Days Qty: 90 1RF Print Language: Portuguese
[2024-09-19 21:41] VITALS: PULSE 86; RESP 18; TEMP 37.6; O2SAT 94
[2024-09-19] MEDS: Albuterol Sulfate 2.5 MG, Albuterol/Iprat 2.5/0.5MG 3 ML 3 ML INHALE (21:54)
[2024-09-19 21:55] VITALS: PULSE 91; RESP 18; O2SAT 95
[2024-09-19] MEDS: Magnesium Sulfate/H2O 2 GM/50 ML PIGGYBACK IV (22:03)
[2024-09-19] MEDS: methylPREDNISolone Sod Succ 125 MG/2 ML VIAL IVPUSH (22:03)
[2024-09-19] MEDS: cefTRIAXone sodium 1 GM VIAL IVPUSH (22:03)
[2024-09-19] MEDS: 0.9 % Sodium Chloride 1,500 ML 999 ML IVCONT (22:03)
[2024-09-19 22:09] LABS: MANUAL DIFF FLAG NO
[2024-09-19 22:10] LABS: Basophils Absolute Auto 0.1 X10*3/uL (0.0-0.2); Basophils Percent Auto 0.4 % (0-2); Hemoglobin 17.3 g/dl (14.0-18.0); Imm Gran Abs Auto 0.06 X10*3/uL (0.00-0.03); Imm Gran Pct Auto 0.4 % (0.0-0.4); Lymphocytes Percent Auto 7.2 % (20-40); Mean Corpuscular HGB Conc 33.3 g/dl (31.0-36.0); Mean Corpuscular Volume 90.1 fL (80.0-98.0); Mean Platelet Volume 9.9 fL (9.4-12.4); Monocytes Absolute Auto 1.1 X10*3/uL (0.1-1.2); Monocytes Percent Auto 7.8 % (2-11); Neutrophils Absolute Auto 11.4 x10*3/uL (2.0-8.3); Neutrophils Percent Auto 84.2 % (45-73); Platelet Count 189 X10*3/uL (160-400); Red Blood Count 5.77 X10*6/uL (4.60-5.80); Red Cell Distribution Width 15.4 % (11.0-16.0); White Blood Count 13.5 X10*3/uL (4.8-10.8)
[2024-09-19 22:12] LABS: VBG Base Excess 0.9 mmol/L; VBG HCO3 27 mmol/L (22-26); VBG pCO2 48 mmHg; VBG pH 7.35 (7.32-7.43); VBG pO2 25 mmHg
[2024-09-19 22:13] LABS: Venous Blood Gas Refer to POC result
[2024-09-19 22:24] LABS: Alanine Aminotransferase 13 U/L (0-40); Albumin Level 3.4 g/dL (3.5-5.0); Alkaline Phosphatase 98 U/L (39-117); Anion Gap 19 (12-20); Aspartate Amino Transferase 17 U/L (5-37); Bilirubin Direct 0.6 mg/dL (0.0-0.5); Bilirubin Total 1.7 mg/dL (0.0-1.0); Blood Urea Nitrogen 24 mg/dL (9-16); Calcium 9.3 mg/dL (8.4-10.2); Carbon Dioxide 21 mmol/L (22-29); Chloride 107 mmol/L (96-108); Creatinine Clr Calc Pharmacy 29.9; Estimated Glomerular Filt Rate 57; Glucose Random 160 mg/dL (60-115); Potassium 4.7 mmol/L (3.3-5.1); Sodium 142 mmol/L (135-145)
[2024-09-19 22:30] LABS: B Type Natriuretic Peptide 422 pg/mL (<100)
[2024-09-19 22:32] LABS: Troponin-I High Sensitivity 42.4 ng/L (<3.5-35.0)
[2024-09-19 22:33] LABS: Lactic Acid 4.5 mmol/L (0.5-2.0)
[2024-09-19 22:46] LABS: Influenza A PCR NEGATIVE (Negative); Influenza B PCR NEGATIVE (Negative); Resp Syncy Virus RNA Qual PCR NEGATIVE (Negative); SARS COV2 PCR INHOUSE NEGATIVE (Negative)
--- NOTE | 2024-09-19 22:56 | PC.NURSE ---
Pt difficult stick, abx delayed d/t needing access.
--- NOTE | 2024-09-19 23:24 | PC.NURSE ---
assumed care of patient at this time, report received from Tammy CALIX. sepsis sheet in progress, iv fluids still infusing. daughter at bedside. patient just returned from CT scan .
[2024-09-19] MEDS: Azithromycin 500 MG in 0.9 % Sodium Chloride 250 ML 125 MG IV (23:45)
[2024-09-19 23:46] VITALS: BP 104/56; PULSE 85; RESP 16; TEMP 36.7; O2SAT 90
[2024-09-19 23:59] VITALS: O2SAT 86
[2024-09-20] VITALS (8 sets, daily range): BP systolic 102–140; BP diastolic 52–77; PULSE 72–81; RESP 14–18; TEMP 36.6; O2SAT 93–98
[2024-09-20 00:07] LABS: Reflex Lactate? Lactic Acid Added
--- NOTE | 2024-09-20 00:18 | PC.NURSE ---
pt dropped as low as 86% while lying down, placed on 2L NC by MD Davis. pt given pudding. plan for admission for copd/PNA call gould within reach. plan of care ongoing.
--- NOTE | 2024-09-20 00:26 | P.HPHOSP_ITS ---
History of Present Illness Date of Service: 09/20/24 Chief Complaint: SOB 84-year-old male with a past medical history of COPD, BPH presented to the hospital with a chief complaint of cough and shortness of breath. Patient reports that for the past 1 day he has been having cough and shortness of breaths has been worsening despite his home inhalers. Reports having posttussive chest discomfort. Denies any nausea or vomiting. Denies any sick contacts. Denies any fever chills Denies any urinary symptoms. Review of all other systems is negative except mentioned above ER course: Per ER team, patient on presentation noted to be short of breath, has bilateral wheezing, hypoxic to 84% on room air, placed on supplemental oxygen, CT chest showed multifocal pneumonia. Respiratory viral panel negative. [facility] Medical History (Updated 09/20/24 @ 00:15 by Demetrice Davis MD) COPD (chronic obstructive pulmonary disease) Social History Patient Tobacco Use Status: Current everyday Tobacco user Meds Allergies Allergy/AdvReac Type Severity Reaction Status Date / Time SEASONAL ALLERGIES Allergy Unknown Unknown Uncoded 09/19/24 21:07 Active Medications: Current Medications Azithromycin 500 mg/ Sodium (Chloride) 250 mls @ 125 mls/hr IV ONCE ONE Stop: 09/20/24 00:45 Last Admin: 09/19/24 23:45 Dose: 125 mls/hr Home Medications ?Medication ?Instructions ?Recorded ?Confirmed ?Last Taken ?Type albuterol sulfate 2.5 mg/3 mL mg inhalation 05/10/23 07/24/24 Unknown History (0.083 %) solution for nebulization albuterol sulfate 90 mcg/actuation inhalation 05/10/23 07/24/24 Unknown History aerosol inhaler aspirin 81 mg tablet,delayed 81 mg PO DAILY 05/10/23 07/24/24 Unknown History release atorvastatin 40 mg tablet 40 mg PO DAILY 05/10/23 07/24/24 Unknown History lisinopril 10 mg tablet 10 mg PO DAILY 05/10/23 07/24/24 Unknown History umeclidinium 62.5 mcg-vilanterol 1 ea inhalation DAILY 05/10/23 07/24/24 Unknown History 25 mcg/actuation powdr for inhalation (Anoro Ellipta) fluticasone furoate 100 inhalation 06/22/23 07/24/24 Unknown History mcg-vilanterol 25 mcg/dose inhalation powder Physical Exam 2 Vital Signs and Narrative: Vital Signs: Last Vital Signs Temp 98.1 F 09/19/24 23:46 Pulse 85 09/19/24 23:46 Resp 16 09/19/24 23:46 BP 104/56 L 09/19/24 23:46 Pulse Ox 97 09/20/24 00:10 O2 Del Method Nasal Cannula 09/20/24 00:10 O2 Flow Rate 2 09/20/24 00:10 BMI result Body Mass Index 16.7 Gen: Appears be in no acute distress HEENT: NCAT, Moist mucosa. Pulmonary: Coarse breath sounds, bilateral wheezing present CVS: Normal S1-S2 Abdomen: BS+, Soft, Nontender Extremities: Warm well perfused Neuro: Alert and awake. Results Labs 09/19/24 22:01 09/19/24 22:01 Labs: Laboratory Results - last 24 hr 09/19/24 09/19/24 09/19/24 22:00 22:01 22:09 MCV 90.1 MCH 30.0 MCHC 33.3 RDW 15.4 Plt Count 189 D MPV 9.9 Immature Gran % (Auto) 0.4 Neut % (Auto) 84.2 H Lymph % (Auto) 7.2 L Bartholomew % (Auto) 7.8 Eos % (Auto) 0.0 Baso % (Auto) 0.4 Lymph # (Auto) 1.0 L Bartholomew # (Auto) 1.1 Eos # (Auto) 0.0 Baso # (Auto) 0.1 Abs Immat Gran (auto) 0.06 H Absolute Neuts (auto) 11.4 H Absolute Nucleated RBC 0.000 Nucleated RBC % (auto) 0.0 VBG pH 7.35 VBG pCO2 48 VBG pO2 25 VBG HCO3 27 H VBG O2 Saturation 31.0 VBG Base Excess 0.9 Anion Gap 19 Estim Creat Clear Calc 29.9 Estimated GFR 57 Random Glucose 160 H Lactic Acid 4.5 H* Calcium 9.3 Total Bilirubin 1.7 H Direct Bilirubin 0.6 H AST 17 ALT 13 Alkaline Phosphatase 98 B-Natriuretic Peptide 422 H Total Protein 8.0 Albumin 3.4 L Influenza Type A (PCR) NEGATIVE Influenza Type B (PCR) NEGATIVE RSV RNA Qual (PCR) NEGATIVE SARS-CoV-2 RNA (RT-PCR) NEGATIVE Assessment and Plan (1) Acute exacerbation of chronic obstructive pulmonary disease: Status: Acute Plan 84-year-old male with a past medical history of COPD, BPH presented to the hospital with a chief complaint of cough and shortness of breath. Noted to have COPD exacerbation/hypoxia/pneumonia. Acute hypoxic respiratory failure: Acute COPD exacerbation: Multifocal pneumonia: Patient was hypoxic 84% on room air. Placed on supplemental oxygen. Not in respiratory distress. CT chest concern for multifocal pneumonia. Respiratory viral panel negative. Continue ceftriaxone azithromycin Continue nebulizations standing and p.r.n. Continue Solu-Medrol Continue supplemental oxygen with a goal oxygen saturation up to 83% Trending pulse oximetry were not ready for discharge Follow-up cultures BPH: Continue home finasteride. DVT prophylaxis: Lovenox Code status: Full code Quality Stroke Does the patient have a stroke diagnosis?: No VTE Prior VTE?: No VTE Risk Level:: Medical - moderate - high VTE Device Contraindication: Treatment Not Indicated VTE Drug Contraindication: N/A - Med Ordered
[2024-09-20 01:27] LABS: ~Lactic Acid-LAB USE ONLY 2.5 mmol/L (0.5-2.0)
[2024-09-20 01:52] LABS: D Dimer High Sensitivity 5046 NG/ML
[2024-09-20 02:34] LABS: Reflex Lactate? 2 Y
[2024-09-20 03:17] LABS: ~Lactic Acid-LAB USE ONLY 2.8 mmol/L (0.5-2.0)
[2024-09-20] MEDS: methylPREDNISolone Sod Succ 40 MG/ML VIAL IVPUSH ×2 (05:40→10:14)
[2024-09-20 06:11] LABS: Hematocrit 44.5 % (42.0-52.0); Hemoglobin 14.4 g/dl (14.0-18.0); Mean Corpuscular HGB Conc 32.4 g/dl (31.0-36.0); Mean Corpuscular Hemoglobin 29.8 pg (27.0-33.0); Mean Corpuscular Volume 92.1 fL (80.0-98.0); Mean Platelet Volume 10.8 fL (9.4-12.4); Platelet Count 176 X10*3/uL (160-400); Red Blood Count 4.83 X10*6/uL (4.60-5.80); Red Cell Distribution Width 15.2 % (11.0-16.0); White Blood Count 9.4 X10*3/uL (4.8-10.8)
[2024-09-20 06:22] LABS: Anion Gap 13 (12-20); Blood Urea Nitrogen 28 mg/dL (9-16); Calcium 8.5 mg/dL (8.4-10.2); Carbon Dioxide 24 mmol/L (22-29); Chloride 111 mmol/L (96-108); Creatinine Clr Calc Pharmacy 33.2; Estimated Glomerular Filt Rate > 60; Glucose Random 175 mg/dL (60-115); Potassium 4.7 mmol/L (3.3-5.1); Sodium 143 mmol/L (135-145)
[2024-09-20 06:48] LABS: Appearance Urine Turbid; Color Urine Dark Yellow; Glucose Urine UA Negative (Negative); Leukocyte Esterase Urine Negative (Negative); Nitrite Urine Negative (Negative); Specific Gravity - Urine 1.025 (1.005-1.025); UMIC TRIGGER UACC YES; Urine Blood Trace (Negative); Urine Ketones Trace mg/dL (Negative); Urine Protein 100 (2+) mg/dL (Neg-Trace)
[2024-09-20 07:20] LABS: Bacteria Urine None Seen (None Seen); Granular Casts Urine Present; Hyaline Casts Urine >20 /LPF (0-2); WBC Urine 0-5 /HPF (0-5)
[2024-09-20 07:56] LABS: Band Neutrophils Percent 1 % (3-5); Lymphocytes Absolute Manual 0.4 X10*3/uL (1.2-4.9); Lymphocytes Percent Manual 4 % (20-40); Monocytes Absolute Manual 0.1 X10*3/uL (0.1-1.2); Monocytes Percent Manual 1 % (2-11); Neutrophils Absolute Manual 8.9 X10*3/uL (2.0-8.3); Neutrophils Percent Manual 94 % (45-73)
[2024-09-20 07:59] LABS: RBC Morphology NOTED
[2024-09-20 08:00] LABS: Burr Cells 3+ (>5) /OIF; Platelet Estimate NORMAL (NORMAL); Platelet Morphology Comment NORMAL
--- NOTE | 2024-09-20 08:00 | PHA.MEDREC ---
Pharmacy Consult ? Medication Reconciliation Pharmacy has completed the medication reconciliation. Spoke with patient who was a poor historian of medication names, and only knows them by pill size and color. He states he is only on Aspirin, a white tablet (Atorvastatin), and pink tablet (Lisinopril). He states his provider told him to start taking finaseride in the morning on Monday, Mon, and Mon. He is non-compliant with terazosin, and only takes this at night once every 2 weeks, or when ever he goes to see the urologist.
--- NOTE | 2024-09-20 08:15 | PC.NURSE ---
Patient sitting up in bed eating breakfast, hospitalist at bedside, patient asking to go home but agrees to wait for CT scan results
--- NOTE | 2024-09-20 09:03 | MHC.CLN ---
NUTRITION PATIENT CURRENTLY IN ED. DIET=2 G SODIUM. BMI=16.7, UNDERWEIGHT. CLINICAL NUTRITION ASSESSMENT TO BE COMPLETED UPON ADM TO UNIT.
[2024-09-20] MEDS: Atorvastatin Calcium 40 MG TABLET PO (10:14)
[2024-09-20] MEDS: Aspirin Enteric Coated 81 MG TABLET.DR PO (10:14)
[2024-09-20] MEDS: Omeprazole 40 MG CAPSULE.DR PO (10:14)
[2024-09-20] MEDS: 0.9 % Sodium Chloride Flush 3 ML SYRINGE IVFLUSH (10:15)
--- NOTE | 2024-09-20 10:29 | P.PNIM_ITS ---
Subjective Subjective Date of Service: 09/20/24 Interval History: sob Physical Exam 2 Vital Signs: Vital Signs: Last Vital Signs Temp 97.8 F 09/20/24 07:16 Pulse 75 09/20/24 09:30 Resp 16 09/20/24 09:30 BP 140/77 H 09/20/24 09:30 Pulse Ox 95 09/20/24 09:30 O2 Del Method Nasal Cannula 09/20/24 09:30 O2 Flow Rate 2 09/20/24 07:16 BMI result Body Mass Index 16.7 General: AO X 3, no acute distress Resp: diminished bilateral, mild accessory muscles used CVS: S1,S2,RRR GI: soft, non tender, non distended Neuro: motor grossly intact, alert Psych: appropriate affect, appropriate insight Objective Data Active Medications Acetaminophen (Acetaminophen 325 Mg Tablet) 650 mg PO Q6H PRN PRN Reason: Pain, Mild 1-3,fever,headache Albuterol Sulfate (Albuterol Sulfate 90 Mcg 8 Gm Inhaler) 2 puff INHALE Q4H PRN PRN Reason: SOB OR COUGH Albuterol/Ipratropium (Albuterol/Iprat 2.5/0.5mg 3 Ml Ampul.Neb) 3 ml INHALE Q4H PRN PRN Reason: Shortness of Breath/Wheezing Albuterol/Ipratropium (Albuterol/Iprat 2.5/0.5mg 3 Ml Ampul.Neb) 3 ml INHALE RQ4H WHILE AWAKE [facility] Last Admin: 09/20/24 08:27 Dose: Not Given Documented By: LYNDA Non-Admin Reason: Not In Room Aspirin (Aspirin Enteric Coated 81 Mg Tablet.) 81 mg PO DAILY [facility] Last Admin: 09/20/24 10:14 Dose: 81 mg Documented By: CARLEY Atorvastatin Calcium (Atorvastatin Calcium 40 Mg Tablet) 40 mg PO DAILY [facility] Last Admin: 09/20/24 10:14 Dose: 40 mg Documented By: CARLEY Benzonatate (Benzonatate 100 Mg Capsule) 100 mg PO TID PRN PRN Reason: Cough Calcium Carbonate (Calcium Carbonate 750 Mg Tab.Chew) 750 mg PO Q4H PRN PRN Reason: Heartburn Ceftriaxone Sodium (Ceftriaxone Sodium 1 Gm Vial) 1 gm IVPUSH BEDTIME [facility] Doxazosin Mesylate (Doxazosin Mesylate 2 Mg Tablet) 4 mg PO BEDTIME [facility] Enoxaparin Sodium (Enoxaparin Sodium 40 Mg/0.4 Ml Syringe) 40 mg SUBCUT BEDTIME [facility] Last Admin: 09/20/24 01:49 Dose: Not Given Documented By: TIGIST Non-Admin Reason: Patient Refused Finasteride (Finasteride 5 Mg Tablet) 5 mg PO MOWEFR@0900 [facility] Fluticasone/Vilanterol (Fluticasone/Vilanterol 100/25 Blst.W.Dev) 1 puff INHALE RDAILY [facility] Azithromycin 500 mg/ Sodium (Chloride) 250 mls @ 125 mls/hr IV BEDTIME [facility] Magnesium Hydroxide (Milk Of Magnesia 30 Ml Oral.Susp) 30 ml PO DAILY PRN PRN Reason: Constipation Melatonin (Melatonin 3 Mg Tablet) 6 mg PO BEDTIME PRN PRN Reason: Insomnia Methylprednisolone Sodium Succinate (Methylprednisolone Sod Succ 40 Mg/Ml Vial) 40 mg IVPUSH Q6H [facility] Last Admin: 09/20/24 10:14 Dose: 40 mg Documented By: CARLEY Sodium Chloride (0.9 % Sodium Chloride Flush 3 Ml Syringe) 3 ml IVFLUSH QSHIFT [facility] Last Admin: 09/20/24 10:15 Dose: 3 ml Documented By: LASHAVIL Labs 09/20/24 05:20 09/20/24 05:20 Labs: Laboratory Results - last 24 hr 09/19/24 09/19/24 09/19/24 22:00 22:01 22:09 MCV 90.1 MCH 30.0 MCHC 33.3 RDW 15.4 Plt Count 189 D MPV 9.9 Immature Gran % (Auto) 0.4 Neut % (Auto) 84.2 H Lymph % (Auto) 7.2 L [place] % (Auto) 7.8 Eos % (Auto) 0.0 Baso % (Auto) 0.4 Lymph # (Auto) 1.0 L [place] # (Auto) 1.1 Eos # (Auto) 0.0 Baso # (Auto) 0.1 Abs Immat Gran (auto) 0.06 H Absolute Neuts (auto) 11.4 H Absolute Nucleated RBC 0.000 Nucleated RBC % (auto) 0.0 Neutrophils % (Manual) Band Neutrophils % Lymphocytes % (Manual) Monocytes % (Manual) Abs Neuts (Manual) Lymphocytes # (Manual) Monocytes # (Manual) Platelet Estimate Plt Morphology Comment RBC Morphology [place] Cells D-Dimer High Sensitivty VBG pH 7.35 VBG pCO2 48 VBG pO2 25 VBG HCO3 27 H VBG O2 Saturation 31.0 VBG Base Excess 0.9 Anion Gap 19 Estim Creat Clear Calc 29.9 Estimated GFR 57 Random Glucose 160 H Lactic Acid 4.5 H* Lactic Acid F/U @ 2Hr Lactic Acid F/U @ 4Hr Calcium 9.3 Total Bilirubin 1.7 H Direct Bilirubin 0.6 H AST 17 ALT 13 Alkaline Phosphatase 98 B-Natriuretic Peptide 422 H Total Protein 8.0 Albumin 3.4 L Urine Color Urine Appearance Urine pH Ur Specific [place] Urine Protein Urine Glucose (UA) Urine Ketones Urine Blood Urine Nitrite Ur Leukocyte Esterase Urine RBC Urine WBC Ur Squamous Epith Cells Urine Bacteria Hyaline Casts Granular Casts Influenza Type A (PCR) NEGATIVE Influenza Type B (PCR) NEGATIVE RSV RNA Qual (PCR) NEGATIVE SARS-CoV-2 RNA (RT-PCR) NEGATIVE 09/20/24 09/20/24 09/20/24 00:26 01:21 02:43 MCV MCH MCHC RDW Plt Count MPV Immature Gran % (Auto) Neut % (Auto) Lymph % (Auto) [place] % (Auto) Eos % (Auto) Baso % (Auto) Lymph # (Auto) [place] # (Auto) Eos # (Auto) Baso # (Auto) Abs Immat Gran (auto) Absolute Neuts (auto) Absolute Nucleated RBC Nucleated RBC % (auto) Neutrophils % (Manual) Band Neutrophils % Lymphocytes % (Manual) Monocytes % (Manual) Abs Neuts (Manual) Lymphocytes # (Manual) Monocytes # (Manual) Platelet Estimate Plt Morphology Comment RBC Morphology [place] Cells D-Dimer High Sensitivty 5046 VBG pH VBG pCO2 VBG pO2 VBG HCO3 VBG O2 Saturation VBG Base Excess Anion Gap Estim Creat Clear Calc Estimated GFR Random Glucose Lactic Acid Lactic Acid F/U @ 2Hr 2.5 H* Lactic Acid F/U @ 4Hr 2.8 H* Calcium Total Bilirubin Direct Bilirubin AST ALT Alkaline Phosphatase B-Natriuretic Peptide Total Protein Albumin Urine Color Urine Appearance Urine pH Ur Specific [place] Urine Protein Urine Glucose (UA) Urine Ketones Urine Blood Urine Nitrite Ur Leukocyte Esterase Urine RBC Urine WBC Ur Squamous Epith Cells Urine Bacteria Hyaline Casts Granular Casts Influenza Type A (PCR) Influenza Type B (PCR) RSV RNA Qual (PCR) SARS-CoV-2 RNA (RT-PCR) 09/20/24 09/20/24 05:20 06:30 MCV 92.1 MCH 29.8 MCHC 32.4 RDW 15.2 Plt Count 176 MPV 10.8 Immature Gran % (Auto) Cancelled Neut % (Auto) Cancelled Lymph % (Auto) Cancelled [place] % (Auto) Cancelled Eos % (Auto) Cancelled Baso % (Auto) Cancelled Lymph # (Auto) Cancelled [place] # (Auto) Cancelled Eos # (Auto) Cancelled Baso # (Auto) Cancelled Abs Immat Gran (auto) Cancelled Absolute Neuts (auto) Cancelled Absolute Nucleated RBC 0.000 Nucleated RBC % (auto) 0.0 Neutrophils % (Manual) 94 H Band Neutrophils % 1 L Lymphocytes % (Manual) 4 L Monocytes % (Manual) 1 L Abs Neuts (Manual) 8.9 H Lymphocytes # (Manual) 0.4 L Monocytes # (Manual) 0.1 Platelet Estimate NORMAL Plt Morphology Comment NORMAL RBC Morphology NOTED [place] Cells 3+ (>5) D-Dimer High Sensitivty VBG pH VBG pCO2 VBG pO2 VBG HCO3 VBG O2 Saturation VBG Base Excess Anion Gap 13 Estim Creat Clear Calc 33.2 Estimated GFR > 60 Random Glucose 175 H Lactic Acid Lactic Acid F/U @ 2Hr Lactic Acid F/U @ 4Hr Calcium 8.5 D Total Bilirubin Direct Bilirubin AST ALT Alkaline Phosphatase B-Natriuretic Peptide Total Protein Albumin Urine Color Dark Yellow Urine Appearance Turbid Urine pH 5.0 Ur Specific [place] 1.025 Urine Protein 100 (2+) H Urine Glucose (UA) Negative Urine Ketones Trace Urine Blood Trace H Urine Nitrite Negative Ur Leukocyte Esterase Negative Urine RBC 3-5 H Urine WBC 0-5 Ur Squamous Epith Cells 11-20 Urine Bacteria None Seen Hyaline Casts >20 Granular Casts Present Influenza Type A (PCR) Influenza Type B (PCR) RSV RNA Qual (PCR) SARS-CoV-2 RNA (RT-PCR) Assessment and Plan (1) Acute exacerbation of chronic obstructive pulmonary disease: Status: Acute Plan 84M PMH CAD s/p PATRICE to LAD, aortic stenosis s/p TAVR, COPD, BPH, chronic left hydronephrosis, AAA presented with sob acute hypoxic respiratory failure due to COPD with acute decompensation with possible pneumonia Continue ceftriaxone, azithromycin, steroids, DuoNebs Given elevated D-dimer we will rule out pulmonary embolism, follow up CT angio Coronary artery disease Aspirin statin History of aortic stenosis status post TAVR Continue aspirin BPH Terazosin AAA Outpatient vascular follow-up DVT prophylaxis with Lovenox Full Code reason for continued hospitalization:sob Quality Stroke Does the patient have a stroke diagnosis?: No VTE Prior VTE?: No VTE Risk Level:: Medical - moderate - high VTE Device Contraindication: Treatment Not Indicated VTE Drug Contraindication: N/A - Med Ordered
[2024-09-20] MEDS: iohexoL 350 MG/ML 100 ML INFUS..BTL IV (11:03)
[2024-09-20] MEDS: Albuterol/Iprat 2.5/0.5MG 3 ML AMPUL.NEB INHALE (11:33)
--- NOTE | 2024-09-20 11:59 | P.DS_ITS ---
DS: Providers Provider Date of Service: 09/20/24 Date of admission: 09/20/24 00:23 Date of discharge: 09/20/24 Primary care physician: Corey Oneil MD DS: Diagnosis Discharge Diagnosis (1) Acute exacerbation of chronic obstructive pulmonary disease: Status: Acute DS: Summary Hospital Course Hospital Course: from initial hpi: 84-year-old male with a past medical history of COPD, BPH presented to the hospital with a chief complaint of cough and shortness of breath. Patient reports that for the past 1 day he has been having cough and shortness of breaths has been worsening despite his home inhalers. Reports having posttussive chest discomfort. Denies any nausea or vomiting. Denies any sick contacts. Denies any fever chills Denies any urinary symptoms. Review of all other systems is negative except mentioned above ER course: Per ER team, patient on presentation noted to be short of breath, has bilateral wheezing, hypoxic to 84% on room air, placed on supplemental oxygen, CT chest showed multifocal pneumonia. Respiratory viral panel negative. hospital course: Patient was admitted for acute hypoxic respiratory failure secondary to COPD with acute decompensation and possible bilateral pneumonia. He was treated with ceftriaxone azithromycin as well as steroids and DuoNebs. Due to an elevated D- dimer he underwent CT angio that ruled out pulmonary embolism. Patient's symptoms improved faster than expected and he was weaned to room air and ambulated well without shortness of breath or hypoxia. On discharge will be given 5 more days of prednisone, Ceftin, azithromycin. For coronary artery disease was continued on aspirin statin. For history of aortic stenosis status post TAVR was continued on aspirin. For BPH was continued on terazosin. For AAA he will continue to follow with vascular as outpatient. Time Attestation Discharge Coordination Time (in mins): 35 Quality: Safe Use of Opioids Does Pt have an Active Cancer Diagnosis on the Problem List?: No Quality: Stroke Does the patient have a stroke diagnosis?: No Physical Exam Vital Signs: Vital Signs: Last Vital Signs Temp 97.8 F 09/20/24 07:16 Pulse 80 09/20/24 11:33 Resp 16 09/20/24 11:33 BP 140/77 H 09/20/24 09:30 Pulse Ox 95 09/20/24 09:30 O2 Del Method Nasal Cannula 09/20/24 09:30 O2 Flow Rate 2 09/20/24 07:16 BMI result Body Mass Index 16.7 General: AO X 3, no acute distress Resp: CTA bilateral, no accessory muscles used CVS: S1,S2,RRR GI: soft, non tender, non distended Neuro: motor grossly intact, alert Psych: appropriate affect, appropriate insight DS: Data Data Completed and Pending Labs on day of discharge: Laboratory Results - last 24 hr 09/19/24 09/19/24 09/19/24 22:00 22:01 22:09 WBC 13.5 H RBC 5.77 D Hgb 17.3 D Hct 52.0 D MCV 90.1 MCH 30.0 MCHC 33.3 RDW 15.4 Plt Count 189 D MPV 9.9 Immature Gran % (Auto) 0.4 Neut % (Auto) 84.2 H Lymph % (Auto) 7.2 L [place] % (Auto) 7.8 Eos % (Auto) 0.0 Baso % (Auto) 0.4 Lymph # (Auto) 1.0 L [place] # (Auto) 1.1 Eos # (Auto) 0.0 Baso # (Auto) 0.1 Abs Immat Gran (auto) 0.06 H Absolute Neuts (auto) 11.4 H Absolute Nucleated RBC 0.000 Nucleated RBC % (auto) 0.0 Neutrophils % (Manual) Band Neutrophils % Lymphocytes % (Manual) Monocytes % (Manual) Abs Neuts (Manual) Lymphocytes # (Manual) Monocytes # (Manual) Platelet Estimate Plt Morphology Comment RBC Morphology [place] Cells D-Dimer High Sensitivty VBG pH 7.35 VBG pCO2 48 VBG pO2 25 VBG HCO3 27 H VBG O2 Saturation 31.0 VBG Base Excess 0.9 Sodium 142 Potassium 4.7 Chloride 107 Carbon Dioxide 21 L Anion Gap 19 BUN 24 H Creatinine 1.22 Estim Creat Clear Calc 29.9 Estimated GFR 57 Random Glucose 160 H Lactic Acid 4.5 H* Lactic Acid F/U @ 2Hr Lactic Acid F/U @ 4Hr Calcium 9.3 Total Bilirubin 1.7 H Direct Bilirubin 0.6 H AST 17 ALT 13 Alkaline Phosphatase 98 Troponin I High Sens 42.4 H B-Natriuretic Peptide 422 H Total Protein 8.0 Albumin 3.4 L Urine Color Urine Appearance Urine pH Ur Specific [place] Urine Protein Urine Glucose (UA) Urine Ketones Urine Blood Urine Nitrite Ur Leukocyte Esterase Urine RBC Urine WBC Ur Squamous Epith Cells Urine Bacteria Hyaline Casts Granular Casts Influenza Type A (PCR) NEGATIVE Influenza Type B (PCR) NEGATIVE RSV RNA Qual (PCR) NEGATIVE SARS-CoV-2 RNA (RT-PCR) NEGATIVE 09/20/24 09/20/24 09/20/24 00:26 01:21 02:43 WBC RBC Hgb Hct MCV MCH MCHC RDW Plt Count MPV Immature Gran % (Auto) Neut % (Auto) Lymph % (Auto) [place] % (Auto) Eos % (Auto) Baso % (Auto) Lymph # (Auto) [place] # (Auto) Eos # (Auto) Baso # (Auto) Abs Immat Gran (auto) Absolute Neuts (auto) Absolute Nucleated RBC Nucleated RBC % (auto) Neutrophils % (Manual) Band Neutrophils % Lymphocytes % (Manual) Monocytes % (Manual) Abs Neuts (Manual) Lymphocytes # (Manual) Monocytes # (Manual) Platelet Estimate Plt Morphology Comment RBC Morphology [place] Cells D-Dimer High Sensitivty 5046 VBG pH VBG pCO2 VBG pO2 VBG HCO3 VBG O2 Saturation VBG Base Excess Sodium Potassium Chloride Carbon Dioxide Anion Gap BUN Creatinine Estim Creat Clear Calc Estimated GFR Random Glucose Lactic Acid Lactic Acid F/U @ 2Hr 2.5 H* Lactic Acid F/U @ 4Hr 2.8 H* Calcium Total Bilirubin Direct Bilirubin AST ALT Alkaline Phosphatase Troponin I High Sens B-Natriuretic Peptide Total Protein Albumin Urine Color Urine Appearance Urine pH Ur Specific [place] Urine Protein Urine Glucose (UA) Urine Ketones Urine Blood Urine Nitrite Ur Leukocyte Esterase Urine RBC Urine WBC Ur Squamous Epith Cells Urine Bacteria Hyaline Casts Granular Casts Influenza Type A (PCR) Influenza Type B (PCR) RSV RNA Qual (PCR) SARS-CoV-2 RNA (RT-PCR) 09/20/24 09/20/24 05:20 06:30 WBC 9.4 RBC 4.83 Hgb 14.4 Hct 44.5 MCV 92.1 MCH 29.8 MCHC 32.4 RDW 15.2 Plt Count 176 MPV 10.8 Immature Gran % (Auto) Cancelled Neut % (Auto) Cancelled Lymph % (Auto) Cancelled [place] % (Auto) Cancelled Eos % (Auto) Cancelled Baso % (Auto) Cancelled Lymph # (Auto) Cancelled [place] # (Auto) Cancelled Eos # (Auto) Cancelled Baso # (Auto) Cancelled Abs Immat Gran (auto) Cancelled Absolute Neuts (auto) Cancelled Absolute Nucleated RBC 0.000 Nucleated RBC % (auto) 0.0 Neutrophils % (Manual) 94 H Band Neutrophils % 1 L Lymphocytes % (Manual) 4 L Monocytes % (Manual) 1 L Abs Neuts (Manual) 8.9 H Lymphocytes # (Manual) 0.4 L Monocytes # (Manual) 0.1 Platelet Estimate NORMAL Plt Morphology Comment NORMAL RBC Morphology NOTED [place] Cells 3+ (>5) D-Dimer High Sensitivty VBG pH VBG pCO2 VBG pO2 VBG HCO3 VBG O2 Saturation VBG Base Excess Sodium 143 Potassium 4.7 Chloride 111 H Carbon Dioxide 24 Anion Gap 13 BUN 28 H Creatinine 1.10 Estim Creat Clear Calc 33.2 Estimated GFR > 60 Random Glucose 175 H Lactic Acid Lactic Acid F/U @ 2Hr Lactic Acid F/U @ 4Hr Calcium 8.5 D Total Bilirubin Direct Bilirubin AST ALT Alkaline Phosphatase Troponin I High Sens B-Natriuretic Peptide Total Protein Albumin Urine Color Dark Yellow Urine Appearance Turbid Urine pH 5.0 Ur Specific [place] 1.025 Urine Protein 100 (2+) H Urine Glucose (UA) Negative Urine Ketones Trace Urine Blood Trace H Urine Nitrite Negative Ur Leukocyte Esterase Negative Urine RBC 3-5 H Urine WBC 0-5 Ur Squamous Epith Cells 11-20 Urine Bacteria None Seen Hyaline Casts >20 Granular Casts Present Influenza Type A (PCR) Influenza Type B (PCR) RSV RNA Qual (PCR) SARS-CoV-2 RNA (RT-PCR) Discharge Plan Discharge Anticipated Discharge Date/Time: 09/20/24 11:57 Patient Disposition: Home, Self-Care Discharge Diagnosis: copd, pna Referrals: Corey Oneil MD [Primary Care Provider] - 1 Week Discharge Medications: New prednisone 20 mg tablet 40 mg PO DAILY Qty: 10 0RF cefuroxime axetil 500 mg tablet 500 mg PO BID Qty: 10 0RF azithromycin 500 mg tablet 500 mg PO DAILY 5 Days Qty: 5 0RF Continued terazosin 5 mg capsule 5 mg PO BEDTIME 90 Days Qty: 90 1RF fluticasone propion-salmeterol 250-50 mcg/dose blister with device 1 ea inhalation BID finasteride 5 mg tablet 5 mg PO MOWEFR@0900 lisinopril 10 mg tablet 10 mg PO DAILY albuterol sulfate 90 mcg/actuation HFA aerosol inhaler 2 inh inhalation Q4H PRN (Reason: SOB OR COUGH) atorvastatin 40 mg tablet 40 mg PO DAILY aspirin 81 mg tablet,delayed release (DR/EC) 81 mg PO DAILY Discharge Orders: Discharge Order (Routine); Ordered 09/20/24 Ordered By: Gabriel Yarbrough Diet: Advance to usual diet Activity on Discharge: As tolerated Stand Alone Forms: Patient Portal Discharge page Print Language: Stateless Care Plan Goals: recovery Health Concerns: copd, pna Plan of Treatment: 5 days prednisone, Ceftin, azithromycin Assessment: See above
--- NOTE | 2024-09-20 13:55 | MHC.CM.PN ---
Addendum entered by Domenica Nguyen 09/20/24 14:45: PT WAS DISCHARGED HOME TODAY WITH NO SERVICES Original Note: PT LIVES WITH FAMILY IN A HOUSE PT IS INDEPENDENT WITH CARE PT DOES NOT RECIEVE SERVICES PT USES [facility] PT'S PCP IS DANNY JENKINS PT IS BUT NOT [facility] CONNECTED ANY LONGER PT HAS MEDICARE, BC FED, & FOR LIFE IMM AND DOCUMENT DELIVERED PT DC HOME SELF CARE VIA SHUTTLE
== END 2024-09-20 13:30 | disposition home or self-care (01) | DRG 190 ==
LOC: HO.ED 09-20 00:15 → HO.EDOVER 09-20 00:28
PROVIDERS: Admitting Provider Hospitalist; Emergency Provider Emergency Medicine; PCP Internal Medicine Endocrinology, Diabetes & Metabolism; Visit Provider Internal Medicine
DX: J44.0 Chronic obstructive pulmonary disease with (acute) lower respiratory infection (principal); J18.9 Pneumonia, unspecified organism; J96.01 Acute respiratory failure with hypoxia; N13.30 Unspecified hydronephrosis; J44.1 Chronic obstructive pulmonary disease with (acute) exacerbation; I25.10 Atherosclerotic heart disease of native coronary artery without angina pectoris; I71.40 Abdominal aortic aneurysm, without rupture, unspecified; N40.0 Benign prostatic hyperplasia without lower urinary tract symptoms; F17.210 Nicotine dependence, cigarettes, uncomplicated; Z71.6 Tobacco abuse counseling; Z20.822 Contact with and (suspected) exposure to COVID-19; Z95.5 Presence of coronary angioplasty implant and graft; Z95.2 Presence of prosthetic heart valve; Z79.51 Long term (current) use of inhaled steroids; Z79.82 Long term (current) use of aspirin; Z79.899 Other long term (current) drug therapy
CPT/HCPCS: 0241U; 36415; 71045; 71250; 71275; 80048; 80076; 81001; 82803; 83605; 83880; 84484; 85007; 85025; 85027; 85379; 87040; 93005; 94640; 99285; J0456; J0696; J2919; J3475; Q9967

== ENCOUNTER → 2024-09-19 21:04 | Outpatient (BNV) | payer MEDICARE, BC, OTHER, SELFPAY | PROVIDERS: Admitting Provider Hospitalist; Emergency Provider Emergency Medicine; PCP Internal Medicine Endocrinology, Diabetes & Metabolism; Visit Provider Internal Medicine | DX: R94.31 Abnormal electrocardiogram [ECG] [EKG] (principal); R06.02 Shortness of breath | CPT/HCPCS: 93010 ==

== ENCOUNTER → 2024-09-19 21:24 | Outpatient (BNV) | payer MEDICARE, BC, OTHER, SELFPAY | PROVIDERS: Emergency Provider Emergency Medicine; PCP Internal Medicine Endocrinology, Diabetes & Metabolism; Visit Provider Radiology Diagnostic Radiology | DX: R06.02 Shortness of breath (principal); R91.8 Other nonspecific abnormal finding of lung field | CPT/HCPCS: 71045; 71250 ==

== ENCOUNTER 2024-09-20 00:23 | Outpatient (BNV) | payer MEDICARE, BC, OTHER, SELFPAY | END 2024-09-20 10:41 | PROVIDERS: Admitting Provider Hospitalist; Emergency Provider Emergency Medicine; PCP Internal Medicine Endocrinology, Diabetes & Metabolism; Visit Provider Radiology Diagnostic Radiology | DX: R91.8 Other nonspecific abnormal finding of lung field (principal) | CPT/HCPCS: 71275 ==

== ENCOUNTER → 2024-09-20 00:23 | Outpatient (BNV) | payer MEDICARE, BC, OTHER, SELFPAY | PROVIDERS: Admitting Provider Hospitalist; Emergency Provider Emergency Medicine; PCP Internal Medicine Endocrinology, Diabetes & Metabolism; Visit Provider Internal Medicine | DX: J44.1 Chronic obstructive pulmonary disease with (acute) exacerbation (principal) | CPT/HCPCS: 99499 ==

== ENCOUNTER 2025-01-13 15:01 | Outpatient (AMB) | payer MEDICARE, BC, OTHER, SELFPAY ==
--- OUTSIDE RECORDS SUMMARY | 2025-01-13 15:27 | XMS_ITS | Continuity of Care Document ---
Author Name [facility] Organization [facility] Care Team Providers Care Pumper Hand Name Role Phone [facility] Unavailable Unavailable Immunizations Combined list of available immunizations from the Department of Defense and Veterans Affairs facilities. Immunization Series Date Given Administered By Site Reaction Lot Number CVX Code Drug Criminal Investigator Status Comments Source influenza virus vaccine, whole virus 1 1998 Unknown, Provider [id number] Valeria ([place]) complet ed influenza virus vaccine, whole virus [facility] tuberculin skin test; purified protein derivative solution, intradermal 1 1998 Unknown, Provider [id number] Lisa (CON) complet ed tuberculi n skin test; purified protein derivativ e solution, intraderm al DoD typhoid vaccine, live, oral 1 1998 Unknown, Provider [id number] Harriet ([place]) complet ed typhoid vaccine, live, oral DoD measles, mumps and rubella virus vaccine 2 1997 Unknown, Provider [id number] Jimenez (AB) complet ed measles, mumps and rubella virus vaccine DoD influenza virus vaccine, whole virus 2 1997 Unknown, Provider [id number] Lisa (CON) complet ed influenza virus vaccine, whole virus DoD tuberculin skin test; purified protein derivative solution, intradermal 1 1997 Unknown, Provider [id number] Lisa (CON) complet ed tuberculi n [...] vaccine, whole virus 1 1996 Unknown, Provider [id number] 16 Valeria (Inactive) ([place]) complet ed [...] 37 () complet ed yellow fever vaccine [facility] tetanus and diphtheria toxoids, adsorbed, preservative free, for adult use (2 Lf of tetanus toxoid and 2 Lf of diphtheria toxoid) 1 1992 Unknown, Provider 09 () complet ed tetanus and diphtheri a toxoids, adsorbed, preservat lyudmila free, for adult use (2 Lf of tetanus toxoid and 2 Lf of diphtheri a toxoid) [facility] trivalent poliovirus vaccine, live, oral 1 1962 Unknown, Provider 02 () complet trivalent polioviru s vaccine, live, oral [facility] Social History Combined list of available smoking, tobacco, and other social history from Department of Defense and Veterans Affairs facilities. Social History Type Response Date Comment [facility] e This section is an empty social history section. [facility]
--- NOTE | 2025-01-13 15:29 | A.OFFVIS_ITS ---
Intake Visit Reasons: 6m/PSA Intake Note: Patient presents today for follow up on: enlarged prostate, hydronephrosis, uti, decreased renal function, and psa lab results PSA: 0.2 Urology Medication: Terazosin, Finasteride Antibiotic Allergies: none Blood Thinners: Aspirin PVR: 40ml's Research Instructor Required: No Accompanied by: Self / Same As Patient Allergies SEASONAL ALLERGIES Allergy (Unknown, Uncoded 01/13/25 22:30) Unknown Medication List - Last Reconciled 01/13/25 by ALICIA Sawyer-STEFFEN albuterol sulfate 90 mcg/actuation 2 inhalations inhalation Q4H PRN aspirin 81 mg PO DAILY atorvastatin 40 mg PO DAILY finasteride 5 mg PO DAILY fluticasone propion-salmeterol 250-50 mcg/dose 1 ea inhalation BID lisinopril 10 mg PO DAILY terazosin 5 mg PO BEDTIME 90 days HPI Comments Details: Romel is a very pleasant 84-year-old male patient of Dr. Oneil. He has a past medical history of COPD and hypercholesteremia. He presents to the office today for a follow up of his recurrent urinary tract infections, incomplete bladder emptying, and lower urinary tract symptoms. In discussion with the patient today he reports to be doing and feeling well. He discusses having followed up with nephrology regarding his proteinuria. He reports nephrology is recommending every six-month follow-up as his labs have been stable. He reports having had no bothersome urinary issues or concerns since his last office visit here however over the last 2-4 weeks has been having intermittent left-sided testicular pain. He denies any associated nausea or vomiting. He reports feeling pain worsens with exertional activity however he also discusses exertional activity is limited due to his ongoing respiratory issues. He denies any recent trauma. He is not currently sexually active. On exam today left epididymal head cyst/structure like palpated. Patient did report mild discomfort during palpation otherwise no open areas, drainage, and or abnormalities noted. He reports compliance with finasteride and terazosin as prescribed. In office urinalysis results reviewed with the patient today. PVR 40 mL. PSA 08/03 0.2. Previous workup has included microgen testing 09/30 that noted Klebsiella pneumoniae and patient has since completed levofloxacin 500 mg daily for 2 weeks as prescribed. Lasix renogram 08/[address] noted severe hydronephrosis with no obvious obstruction. Renogram noted Left kidney 15% and right kidney 85% of total renal uptake. Left kidney is enlarged with no evidence of obstruction however shows mild peripheral rim cortical perfusion. Presence or absence of underlying obstruction remain indeterminate related to poor renal function resulting in lack of excretion of radiotracer into the previously documented markedly dilated pelvicalyceal system. Right kidney normal perfusion. He discusses his continuation and follow-up with vascular, Cardiology, Nephrology, PCP, dermatology, and pulmonology for his ongoing medical issues. He denies urinary urgency, urinary frequency, incontinence, nocturia, hematuria, dysuria, foul smelling urine, flank pain, fever, and or chills. He is happy with his current voiding parameters. He discusses continuing to limit/quit his nicotine dependence. Labs are as follows BUN: 12/29 17, 05/01 32, 08/02 28, 09/02 19, 10/01 24, 10/01 28 Creatinine: 12/29 1.24, 05/01 1.35, 08/02 0.94, 09/02 1.01, 10/01 1.22, 10/01 1.10 PSA 09/02 0.6, 08/03 0.2 We discussed obtaining scrotal ultrasound for further assessment evaluation. We also discussed worsening symptoms. All questions were answered. He otherwise offers no other issues or concerns at this time. [facility] Medical History COPD (chronic obstructive pulmonary disease) Social History Patient Tobacco Use Status: Current everyday Tobacco user service: Yes Review of Systems Eyes Reports no additional complaints ENT Reports no additional complaints Card Reports as per HPI Resp Reports as per HPI GI Reports as per HPI Reports as per HPI Musc Reports no additional complaints Skin/Breast Reports as per HPI Neuro Reports no additional complaints Psych Reports no additional complaints Endo Reports no additional complaints Amrit/Lymph Reports no additional complaints Aller/Immun Reports no additional complaints Physical Exam Const General: cooperative, comfortable, no acute distress, well developed, alert and awake Nutritional Appearance: thin Orientation/consciousness: patient oriented x3 Limitations: ambulation with cane HEENT Head: Yes normal to inspection, Yes normocephalic and Yes atraumatic Ears: hearing grossly normal bilaterally Eyes General: appearance normal, both eyes and all related structures Neck Neck: Yes normal visual inspection and Yes trachea midline Chest Chest palpation & inspection: normal inspection of the chest Resp Effort & Inspection: normal respiratory effort and able to speak in complete sentences Cardio Rate: regular rate GI Inspection: Yes normal to inspection General: Yes no CVA tenderness Back/Spine/Pelvis Back: no CVA tenderness Skin General skin exam: no rashes or lesions noted Neuro General: patient oriented x3 Extrem General: Yes normal to inspection Psych Appearance: grossly normal and well kempt Mental Status: mental status grossly normal Speech and movement: Normal speech and movement present and Clear speech present Affect: normal affect Attitude: cooperative Thought process: Normal thought process present Thought content: Normal thought content present Insight: Fair insight present (Psych) Judgement: Fair judgement present (Psych) Office Procedures Post Void Residual Post Residual Void Post Void Residual (PVR): 40 [id number]-Gcqm Void Residual by ultrasound Results AMB Urinalysis, Automated UA Leukoctes 0 Dayana/uL Last Edit by Vicky Sweet CCM on 01/13/25 16:37 UA Nitrite Last Edit by Vicky Sweet [facility] on 01/13/25 16:37 UA Urobilinogen 0.2 mg/dL Last Edit by Vicky Sweet [facility] on 01/13/25 16:3 7 UA Protein 15 mg/dL Last Edit by Vicky Sweet [facility] on 01/13/25 16:37 UA pH 5.5 Last Edit by Vicky Sweet [facility] on 01/13/25 16:37 UA Blood 0 Giovanny/uL Last Edit by Vicky Sweet [facility] on 01/13/25 16:37 UA Specific Meally 1.020 Last Edit by Vicky Sweet [facility] on 01/13/25 16: 37 UA Ketone Last Edit by Vicky Sweet [facility] on 01/13/25 16:37 UA Bilirubin 0 mg/dL Last Edit by SHAYAN Gamino on 01/13/25 16:37 UA Glucose 0 mg/dL Last Edit by SHAYAN Gamino on 01/13/25 16:37 Results Reviewed Results Reviewed: Laboratory Last Values Urine pH (Auto) 5.5 01/13/25 16:35 Specific Meally (Auto) 1.020 01/13/25 16:35 Urine Protein (Auto) 15 mg/dL 01/13/25 16:35 Glucose (UA)(Auto) 0 mg/dL 01/13/25 16:35 Urine Blood (Auto) 0 Giovanny/uL 01/13/25 16:35 Urine Bilirubin (Auto) 0 mg/dL 01/13/25 16:35 Urine Urobilinogen (Auto) 0.2 mg/dL 01/13/25 16:35 Leukocyte Esterase (Auto) 0 Dayana/uL 01/13/25 16:35 Assessment & Plan Assessment & Plan (1) Lower urinary tract symptoms: Code(s): R39.9 - Unspecified symptoms and signs involving the genitourinary system Category: Medical (2) Incomplete bladder emptying: Code(s): R33.9 - Retention of urine, unspecified Category: Medical (3) Bladder wall thickening: Code(s): N32.89 - Other specified disorders of bladder Category: Medical (4) Bladder trabeculation: Code(s): N32.89 - Other specified disorders of bladder Category: Medical (5) Enlarged prostate: Code(s): N40.0 - Benign prostatic hyperplasia without lower urinary tract symptoms Category: Medical (6) Epididymal cyst: Code(s): N50.3 - Cyst of epididymis Category: Medical Plan In office urinalysis results reviewed with the patient today; as noted above. PVR 40 mL. Continue finasteride and terazosin as prescribed. Will obtain scrotal ultrasound for further assessment evaluation. We did discussed worsening symptoms; we discussed seeking medical treatment and or calling office with worsening symptoms. He currently denies any urinary issues or concerns. He reports be happy with current voiding parameters. Follow-up in 2-4 weeks with imaging to be completed prior; or sooner with any issues, concerns, and or questions. Orders: Orders US scrotum Today L72.9 - Follicular cyst of the skin and subcutaneous tissue, unspecified AMB Urinalysis Automated Today Z13.9 - Encounter for screening, unspecified AMB Post Void Residual by ultrasound Today N39.0 - Urinary tract infection, site not specified Patient Instructions: The patient had an opportunity to ask questions regarding the treatment plan. All questions were answered. Physical exam, labs, and imaging were discussed and reviewed in detail. As well as risks, benefits, and discussion of treatment choices. No major barriers to understanding were identified. The patient expressed understanding and agreement with the above treatment plan. The patient was made aware they should contact our office by phone for worsening of their current condition, the appearance of new symptoms, or with any questions or concerns. Compliance is encouraged with any medications and follow up testing that is ordered. It is a privilege to be allowed the opportunity to participate in? your urological care.? Again, if you have any questions or concerns If you have any questions or concerns please do not hesitate to contact me. The office is [phone]. This note is constructed using voice recognition software. While every effort has been made to ensure accuracy financial services representative errors may have been included. Yours sincerely, BRISSA Sawyer Coding Level of Care Code Est Pt Level 3 (01145) Complex EM visit Add On G2211 Diagnoses Lower urinary tract symptoms R39.9 Incomplete bladder emptying R33.9 Bladder wall thickening N32.89 Bladder trabeculation N32.89 Enlarged prostate N40.0 Epididymal cyst N50.3 CPT Codes Post Residual Void - PVR CPT Code: 88586-Gfcv Void Residual by ultrasound ([id number])
--- OUTSIDE RECORDS SUMMARY | 2025-01-13 15:30 | XMS_ITS | Data Portability ---
Author Organization [facility], [facility] Address [address] [place] [address] Care Team Providers Care Sports Team Marketing Intern Name Role Phone [facility] Provider [facility] Primary Care Provider Assessment Encounter Date Assessment Date Assessment LastModified by Organization Details LastModified Time 05/28/2024 05/28/2024 84-year-old dtcmj-rjit-skvwgfu t male who presents today with findings most consistent with right index finger flexor tenosynovitis. Offered him a cortisone injection for which she wished to proceed with. Follow-up in 6 weeks time for recheck, sooner if required [email or web address] Not available 05/28/2024 14:47:38 07/30/2024 07/30/2024 84-year-old smlyg-moqa-tgsibmn t male presents today for follow-up evaluation of a right index finger flexor tenosynovitis status post 1 prior cortisone injection who was doing well up until about a week ago and has had some recurrence of some signs of a right index finger flexor tenosynovitis. Due to his current active treatment for an infection I recommended against a cortisone injection today. Recommended topical anti-inflammatory to be applied to the hand 4 times daily as needed, he will follow-up in 4 weeks time if he is still symptomatic for possible cortisone injection as long as his prior infection has resolved. Not available 07/30/2024 10:46:25 08/28/2024 08/28/2024 84-year-old mrxvt-ldte-lxggzlk t male presents today for follow-up evaluation of a right index finger flexor tenosynovitis status post 1 prior cortisone injection who overall appears to be doing well. After further discussion we mutually agreed that he does not need another cortisone injection today as his symptoms are very minimal. He may follow-up symptomatically going forward. Not available 08/28/2024 11:05:15 Plan of Treatment Reminders Order Date Submit Date Provider Last Modified By Organization Details Last Modified Time Details Appointments None recorded. Lab None recorded. Referral None recorded. Procedures None recorded. Surgeries None recorded. Imaging None recorded. Medication Orders Voltaren Arthritis Pain 1 % topical gel 2024 025 [email or web address] [id number], [address], [place], [phone], 5 11:29:49 Patient TargetsNo targets recorded. Patient InstructionsNo instructions recorded. Reason for Referral None Reported. Problems Name Problem SNOMED Code Status Onset Date Resolution Date Notes Provider Name and Address Organization Details Recorded Time Trigger finger of right hand [id number] 1 Active 2023 Jaime Reich PA-C [address], [place], [address], [facility] 4 12:01:38 Problem Notes None recorded. Procedures Surgical History Date Name Laterality Status Provider Name and Address Organization Details Recorded Time 4 Tendon Sheath Kenalog Injection, L/R completed Jaime Reich PA-C [address], [address], [facility] 05/28/2024 14:47:15 Imaging Results None recorded. Procedure Notes None recorded. Medical Equipment None Reported. Allergies No known drug allergies Medications Name Sig Start Date Stop Date Status Note LastModified by Organization Details LastModified Time terazosin 5 mg capsule TAKE 1 CAPSULE BY MOUTH AT BEDTIME active Not Available Not Available No t Available atorvastatin 40 mg tablet TAKE 1 TABLET BY MOUTH DAILY active Not Available Not Available No t Available fosfomycin tromethamine 3 gram oral packet TAKE 3G EVERY 3 DAYS FOR 9 DAYS active Not Available Not Available No t Available cephalexin 500 mg capsule TAKE 1 CAPSULE BY MOUTH THREE TIMES DAILY FOR 7 DAYS active Not Available Not Available No t Available nitrofurantoin macrocrystal 100 mg capsule TAKE 1 CAPSULE BY MOUTH TWICE DAILY FOR 10 DAYS active Not Available Not Available No t Available lisinopril 10 mg tablet TAKE 1 TABLET BY MOUTH DAILY active Not Available Not Available No t Available levofloxacin 500 mg tablet TAKE 1 TABLET BY MOUTH DAILY FOR 7 DAYS active Not Available Not Available No t Available albuterol sulfate HFA 90 mcg/actuation aerosol inhaler INHALE 2 PUFFS INTO THE LUNGS EVERY 4 HOURS NEEDED FOR COUGH OR WHEEZING active Not Available Not Available No t Available finasteride 5 mg tablet TAKE 1 TABLET BY MOUTH DAILY active Not Available Not Available No t Available fluticasone furoate 100 mcg-vilanterol 25 mcg/dose inhalation powder INHALE 1 PUFF INTO THE LUNGS DAILY active Not Available Not Available No t Available Wixela Inhub 250 mcg-50 mcg/dose powder for inhalation INHALE 1 PUFF INTO THE LUNGS TWICE DAILY active Not Available Not Available No t Available Voltaren Arthritis Pain 1 % topical gel APPLY 2 GRAMS TO THE AFFECTED AREA(S) BY TOPICAL ROUTE 4 TIMES PER DAY 2024 active Not Available Not Available Not Avai lable Vitals Date Recorded Body height Body mass index (BMI) Body weight Provider Name and Address Organization Details Last Updated DateTime 07/30/2024 167.64 cm 18.6 kg/m2 76752.12 g Sylwia james [facility] 07/30/2024 10:11:09 Date Recorded Body height Body mass index (BMI) Body weight Provider Name and Address Organization Details Last Updated DateTime 08/28/2024 165.1 cm 18.3 kg/m2 31121.16 g HASEEB VIVEROS [facility] 08/28/2024 10:45:54 Date Recorded Body height Body mass index (BMI) Body weight Provider Name and Address Organization Details Last Updated DateTime 05/28/2024 167.64 cm 18.6 kg/m2 43522.12 g lisset chin [facility] 05/28/2024 14:34:40 Social History None recorded. Functional Status None recorded. Mental Status None recorded. Family History Nothing Reported. Medical History No medical history recorded. Past Encounters Encounter ID Performer Location Encounter Start Date Encounter Closed Date Diagnosis/Indication Diagnosis SNOMED-CT Code Diagnosis ICD10 Code Diagnosis Note [id number] MIREYA Mccallum [address] [place] [address] 05/28/2024 14:04:42 06/26/2024 10:53:07 Trigger finger of right hand [id number] M65.30 [id number] Jaime Reich PA-C [facility] [address] [place] [address] 07/30/2024 10:00:07 08/25/2024 16:18:03 Trigger finger of right hand [id number] M65.30 [id number] Jaime Reich PA-C [facility] [address] [place] [address] 08/28/2024 10:34:55 09/13/2024 09:13:27 Trigger finger of right hand [id number] M65.30 Health Concerns Section Related Observation LastModified by Organization Detai ls LastModified Time None Recorded Concern Status LastModified by Organization Details LastModified Time None Recorded Advance Directives Directive None Recorded Payers Insurance Date Sequence Insurance Name Policy Number Policy Virgen Covered Member ID Virgen Member ID Guarantor Name 08/25/2024 1 [place] [employer]ERNMENT [employer] Romel Lozada [facility] [id number] [facility] 08/25/2024 3 FOR LIFE ( - MEDICARE SUPPLEMENT) Romel Prechtl [id number] Romel Prechtl 09/13/2024 2 [place] [employer]ERAL EMPLOYEE PROGRAM [id number] Romel Lozada Precl [id number] [facility] Notes Date Note Type Note Provider Name and Address Organization Details Recorded Time 05/28/2024 text/html I am seeing this patient under the supervision of Dr. Cruz who was available but who did not see the patient Chief Complaint: New evaluation for right hand trigger finger HPI: 84-year-old rekwi-mjlq-zuwyvbzi male presents today with complaints of a longstanding history of intermittent locking of the right index finger with a popping type sensation. He has not had any treatment of this yet. No injury at the onset. Presents for evaluation Jaime Reich PA-C [address], [place], [address], [facility] 05/28/2024 14:47:53 07/30/2024 text/html I am seeing this patient under the supervision of Dr. Medina who was available but who did not see the patient Chief Complaint: Follow-up evaluation for right index finger flexor tenosynovitis HPI: 84-year-old remfm-niri-vbopnzen male presents today for follow-up evaluation of a right index finger flexor tenosynovitis status post 1 prior cortisone injection. Notes he was doing well up until about a week ago when he noticed some mild return of pain and slight catching of the right index finger. He is currently being treated for an infection of his left lower leg and currently on antibiotics. Jaime Reich PA-C [address], [place], [address], [facility] 07/30/2024 10:46:34 08/28/2024 text/html I am seeing this patient under the supervision of Dr. Owusu who was available but who did not see the patient Chief Complaint: Follow-up evaluation for right index finger flexor tenosynovitis HPI: 84-year-old vqbxg-kxyd-nniyirrn male presents today for follow-up evaluation of a right index finger flexor tenosynovitis status post 1 prior cortisone injection. He was unable to acquire Voltaren gel due to financial reasons. He reports he is still dealing with an infection in the gluteal region. He reports minimal pain and no active triggering. Jaime Reich PA-C [address], [place], [address], [facility] 08/28/2024 11:05:28
--- OUTSIDE RECORDS SUMMARY | 2025-01-13 15:30 | XMS_ITS | Continuity of Care Document ---
Author Organization [facility] [address] [facility] [address] [place] [address] Phone [phone] Problems Active Problems Provider Date Hyperlipidemia Corey [...] Social History Type Date Description Comments Sex Male Sex Unknown ETOH Use Occasionally consumes alcoho l Tobacco Use Start: Unknown End: Unknown Patient is a former smoker Smoking Status Reviewed: 05/01/23 Patient is a former smoker Allergies and adverse reactions Description No Known Drug Allergies Medications Active Medications SIG Qnty Indications Ordering Provider Date Ewcczolcopk4pd Tablets 1 by mouth every day 90tabs Corey Oneil M.D. 08/02/2023 Terazosin HCL5mg Capsules take 1 capsule by mouth at bed 90caps Corey Oneil M.D. 08/02/[address] 1 by mouth every day Corey Oneil M.D. 04/25/2022 Albuterol Sulfate REA521(90Base) mcg/Act Aerosol Inhale 2 Puffs Into The Lungs Every 4 Hours as Needed For Cough Or Wheezing Unknown [id number] Tablets Take 1 Tablet By Mouth Daily 90tabs Corey Oneil M.D. Atorvastatin Wwcvios72sj Tablets Take 1 Tablet By Mouth Daily Unknown Virginie [id number]/Act Francie Hernandez MD Vital Signs Date Vital Result Comment 03/19/2024 2:55pm BP Systolic 120 mmHg BP Diastolic 60 mmHg Heart Rate 72 /min Height 65 inches 5'5 Weight 105.12 lb BMI (Body Mass Index) 17.5 kg/m2 Results Test Acquired Date Facility Test Result H/L Range Note TSH With Reflex To FT4 08/02/2023 [facility] TSH With Reflex To FT4 1.18 uIU/mL (0.4-4. 2) Urinalysis Complete 10/17/2022 [facility] Appear/Color LIGHT YELLOW 1 SP. [place] 1.016 (1.002- 1.030) Urine PH 6.0 (5.0-8. 0) Urine Albumin TRACE Abnormal (Neg) Urine Glucose NEGATIVE (Neg) Urine Ketones NEGATIVE (Neg) Urine Bilirubin NEGATIVE (Neg) Urine Hemoglobin NEGATIVE (Neg) Urine Nitrite NEGATIVE (Neg) Urine Leukocyte NEGATIVE (Neg) Urobilinogen NORMAL mg/dL (Norm) Urine WBCs 1 /HPF (0-5) Urine RBCs 1 /HPF (0-3) Complete Abc With Diff 10/17/2022 [facility] WBC 9.8 K/MM3 (4.0-11 .0) [...] 0) Lymph # 2.4 K/MM3 (0.8-3. 1) [place]# 1.0 K/MM3 (0.4-1. 3) Eo # 0.4 K/MM3 (0.0-0. 4) Baso # 0.1 K/MM3 (0.0-0. 1) Abs. Imm Gran 0.0 K/MM3 Neut 60.1 % (44-76) Lymph 24.9 % (15-43) Monocyte 10.2 % (4.5-10 .5) Eo 4.0 % (0-6) Baso 0.5 % (0-2) Imm Gran 0.3 % Comprehensive Metabolic Panl 10/17/2022 [facility] Glucose 90 mg/dL (70-99) 2 [...] 60 ML/MIN/1.7 3M2 3 Lipid Panel 10/17/2022 [facility] Cholesterol, Total 160 mg/dL (<200) Triglyceride 90 mg/dL (<150) 4 HDL Chol 66 mg/dL (>39) LDL Cholesterol, Calculated 76 mg/dL (0-130) Non HDL Cholesterol (Calc) 94 mg/dL (<160) TSH With Reflex To FT4 10/17/2022 [facility] TSH With Reflex To FT4 1.24 uIU/mL (0.4-4. 2) TSH With Reflex To FT4 04/27/2022 [facility] TSH With Reflex To FT4 [...] Oneil M.D. I25.10 Athscl heart disease of [place] coronary artery w/o ang pctrs E78.5 Hyperlipidemia, unsp ecified I71.40 Abdominal aortic ane urysm, without rupture, unspecified F17.210 Nicotine dependence, cigarettes, uncomplicated J44.9 Chronic obstructive pulmonary disease, unspecified Assessments Date Code Description Provider 03/19/2024 I25.10 Atherosclerotic heart disease of [place] coronary artery without angina pectoris Corey Oneil M.D. 03/19/2024 E78.5 Hyperlipidemia Corey joshua M.D. 03/19/2024 I71.40 Abdominal aortic aneurysm Souleymane Oneil M.D. 03/19/2024 F17.210 Moderate cigarette smoker (1 0-19 cigs/day) Croey Oneil M.D. 03/19/2024 J44.9 Chronic obstructive lung dis ease Corey Oneil M.D. Plan of Treatment Future Appointment(s):* 01/28/2025 2:30 pm - Corey Oneil M.D. at Main Office 03/19/2024 - Corey Oneil M.D.* I25.10 Atherosclerotic heart disease of [place] coronary artery without angina pectoris * E78.5 Hyperlipidemia * I71.40 Abdominal aortic aneurysm * F17.210 Moderate cigarette smoker (10-19 cigs/day) * J44.9 Chronic obstructive lung disease Functional Status Description No Information Available Mental Status Description No Information Available Referrals Refer to Reason for Referral Status Appt Fina Tamayo MD TRIGGER FINGER RIGHT SECO ND FINGER Closed 05/28/[address] [place] [address] [phone] [facility] 4.3 CM AORTIC ANEURYSM Closed 09/05/[address] [place] [address] [phone]
--- OUTSIDE RECORDS SUMMARY | 2025-01-13 15:30 | XMS_ITS | Clinical Summary ---
Author Organization [address] [place] [address] [address] [place] [address] Phone Care Team Providers Care Telecommunications Line Mechanic Name Role Phone Corey Oneil MD Primary Care Provider Allergies No known active allergies Medications aspirin 81 mg EC tablet Take 1 tablet by mouth daily. Active NEBULIZERS MISC by Does not apply route. Active finasteride (PROSCAR) 5 mg tablet Take 1 tablet (5 mg total) by mouth 1 (one) time each day. Active fluticasone furoate-vilante roL (BREO ELLIPTA) 100-25 mcg/dose inhaler Inhale into the lungs. Active fosfomycin (MONUROL) 3 gram packet Take 3 g by mouth once. Active lisinopriL (PRINIVIL,ZESTR IL) 10 mg tablet Take 10 mg by mouth daily. Active albuterol HFA (PROAIR HFA ; PROVENTIL HFA ; VENTOLIN HFA) 90 mcg/actuation inhaler INHALE 2 PUFFS INTO THE LUNGS EVERY 4 HOURS NEEDED FOR COUGH OR WHEEZING 8.5 g 3 5 09/06/19 26 Active atorvastatin (LIPITOR) 40 mg tablet TAKE 1 TABLET(40 MG) BY MOUTH 1 TIME EACH DAY 90 tablet 1 5 Active fluticasone-alvaro meterol (ADVAIR DISKUS) 250-50 mcg/dose diskus inhaler Inhale 1 puff by mouth 2 (two) times a day. Rinse mouth with water after use to reduce aftertaste and incidence of candidiasis. Do not swallow. 1 each 5 12/14/19 26 Active fluticasone-ume clidinium-vilan terol (Trelegy Ellipta) 100-62.5-25 mcg inhaler Inhale 1 puff (100 mcg total) by mouth 1 (one) time each day. Rinse mouth with water after use to reduce aftertaste and incidence of candidiasis. Do not swallow. 1 each 5 01/07/20 26 Active Active Problems Problem Noted Date Diagnosed Date Essential hypertension 11/23/2021 Overview (05/30/2024): Last Assessment & Plan: Blood pressure well controlled. Continue YOUNG inhibitor at current dose. Assessment & Plan (07/18/2024 4:12 PM EST): Orders: Transthoracic echocardiogram (TTE) complete with PRN contrast, bubble, strain, and 3D order panel; Future Hyperlipidemia 11/23/2021 Overview (05/30/2024): Last Assessment & Plan: Patient is LDL is very well controlled on his current dose statin. Continue the same. Nonrheumatic aortic valve stenosis 11/23/2021 Overview (05/30/2024): Last Assessment & Plan: The patient's aortic valve is normally functioning on his most recent echocardiogram from last week. He does not have any cardiorespiratory symptoms at this time. Continue his activity. Continue periodic surveillance of his aortic valve. Continue SBE prophylaxis. Assessment & Plan (07/18/2024 4:12 PM EST): Orders: Transthoracic echocardiogram (TTE) complete with PRN contrast, bubble, strain, and 3D order panel; Future CAD (coronary artery disease) 05/08/2017 Overview (05/30/2024): Drug-eluting stent to the proximal LAD with distal PDA managed medically Last Assessment & Plan: Patient has no anginal symptoms to his current MET workload. Continue ongoing risk factor modification with aspirin and statin. He will notify me if any changes in his current condition. Assessment & Plan (07/18/2024 4:12 PM EST): Orders: Transthoracic echocardiogram (TTE) complete with PRN contrast, bubble, strain, and 3D order panel; Future Chronic obstructive pulmonar y disease ([facility] V24, [facility] V28) 11/21/2016 Asthma 10/24/2016 Seasonal allergic rhinitis 08/22/2016 Encounters Date Type Department Care Team Description 01/06/2025 2:30 PM EDT Office Visit Pulmonolgy - [place] [address] [facility] [address] [place] [address] Francie Collins MD Stage 4 very severe COPD by GOLD classification ([facility] V24, [facility] V28) (Primary Dx); Tobacco abuse from Last 3 Months Immunizations Name Administration Dates Next Due Influenza trivalent, 0.5mL (Fluad) 65yo and olde r 06/05/2017 Pfizer SARS-CoV-2 COVID-19, mRNA, LNP-S, preservative free 04/26/2021 Medical History Medical History Date Comments CAD (coronary artery disease) 05/08/2017 DX :CAD (coronary artery disease) Asthma 10/24/2016 DX:Asthma Chronic obstructive pulmonar y disease ([facility] V24, [facility] V28) 11/21/2016 DX:Chronic obstructive pulm onary disease (HCC) History of renal calculi 08/22/2016 DX:Hist ory of renal calculi Seasonal allergic rhinitis 08/22/2016 DX:Se asonal allergic rhinitis Social History Tobacco Use Types Packs/Day Years Used Date Smoking Tobacco: Every Day Cigarettes Smokeless Tobacco: Never Tobacco Cessation:Ready to Q uit: Not Asked; Counseling Given: Not Answered Comments:Smoking daily 7 to 8 cigs daily Alcohol Use Standard Drinks/Week Comments Yes 4 (1 standard drink = 0.6 oz pur e alcohol) Sex and Gender Information Value Date Recorded Sex Assigned at Not on file Legal Sex Male 3:38 AM EST Gender Identity Not on file Sexual Orientation Not on file Obstetrics History Last Filed Vital Signs Vital Sign Reading Time Taken Comments Blood Pressure 110/60 01/06/2025 2:49 PM EDT Pulse 85 01/06/2025 2:49 PM EDT Temperature 36.1 C (97 F) 01/06/2025 2:49 PM EDT Respiratory Rate 20 01/06/2025 2:49 PM EDT Oxygen Saturation 96% 01/06/2025 2:49 PM EDT Inhaled Oxygen Concentration - - Weight 47 kg (103 lb 9.6 oz) 01/06/2025 2:49 PM EDT Height 162.6 cm (5' 4 ) 01/06/2025 2:49 PM EDT Body Mass Index 17.78 01/06/2025 2:49 PM EDT Plan of Treatment Upcoming Encounters Date Type Department Care Team (Late st Contact Info) Description 01/15/2025 11:30 AM EDT Ancillary Procedure [facility] [address] [facility] [address] [place] [address] 05/05/2025 3:00 PM EDT Office Visit Pulmonolgy - [place] [address] [facility] [address] [place] [id number] Francie Collins MD [address] [facility] [address] [place] [address] Health Maintenance Due Date Last Done Comments Zoster Vaccines (1 of 2) 1959 IPV Vaccines (2 of 3 - Adult catch-up series) 01/05/1963 12/08/1962 DTaP,Tdap,and Td Vaccines (2 - Td or Tdap) 03/20/2003 03/20/1993 Cholesterol Screening (Lipid Panel) 06/18/2022 Depression Screening 06/18/2022 Falls Risk Assessment 06/18/2022 Medicare Annual Wellness Visit 06/18/2022 Social Influencers of Health Screening 06/18/2022 COVID-19 Vaccine ( season) 2024 05/24/2022, 04/26/2021, 09/01/2020, Additional history exists Influenza Vaccine (#1) 2025 , 05/24/2022, 04/26/2021, Additional history exists Hypertension/CHF/CAD Annual BMP Blood Test 08/08/2025 08/08/2024 Hepatitis B Vaccines Completed 11/08/1997, 06/14/1997, 05/17/1997 Hepatitis A Vaccines Aged Out 12/13/1997, 06/14/19 97 No longer eligible based on patient's age to complete this topic MMR Vaccines Aged Out 06/02/1998 No longer eligi ble based on patient's age to complete this topic Pneumococcal Vaccine: 50+ Years Completed 06/13/2023, 05/09/2020, 03/30/2015 RSV Immunization Adult Patients Completed 06/13/2023 HIB Vaccines Aged Out No longer eligi ble based on patient's age to complete this topic HPV Vaccines Aged Out No longer eligi ble based on patient's age to complete this topic Meningococcal ACWY Vaccine Aged Out N o longer eligible based on patient's age to complete this topic Meningococcal B Vaccine Aged Out No l onger eligible based on patient's age to complete this topic RSV Immunization Patients Under 20 months Aged Out No longer eligible based on patient's age to complete this topic Varicella Vaccines Aged Out No longer eligible based on patient's age to complete this topic Insurance MEDICARE [facility] Care Teams Telecommunications Line Mechanic Relationship Specialty Start Date End Date Corey Oneil MD [address] [place] [address] [address] [place] [address] PCP - General Endocrinology 05/13/17
--- OUTSIDE RECORDS SUMMARY | 2025-01-13 15:30 | XMS_ITS | Encounter Summary ---
Author Organization [facility] Address [address] [place] [address] Phone Care Team Providers Care Educational Sign Language Interpreter Name Role Phone Unavailable Primary Care Provider Unavailabl e Encounter Details Date Type Department Care Team (Late st Contact Info) Description 08/25/2023 Documentation Only [facility] [address] [place] [place] [address] Xochitl Bee [place] [address] [place] [address] Social History Tobacco Use Types Packs/Day Years Used Date Smoking Tobacco: Never Assessed Sex and Gender Information Value Date Recorded Sex Assigned at Not on file Legal Sex Male 9:58 AM EDT Gender Identity Not on file Sexual Orientation Not on file documented as of this encounter Plan of Treatment Upcoming Encounters Date Type Department Care Team (Late st Contact Info) Description 07/15/2025 1:30 PM EST Office Visit [facility] [address] [place] [place] [address] Fernando Hubbard MD [address] [place] [address] documented as of this encounter Visit Diagnoses Not on filedocumented in this encounter
== END 2025-01-13 16:12 | disposition home or self-care (01) ==
LOC: HO.HUSH 15:01
PROVIDERS: PCP Internal Medicine Endocrinology, Diabetes & Metabolism; Visit Provider Nurse Practitioner Family
DX: R39.9 Unspecified symptoms and signs involving the genitourinary system (principal); R33.9 Retention of urine, unspecified; N32.89 Other specified disorders of bladder; N40.0 Benign prostatic hyperplasia without lower urinary tract symptoms; N50.3 Cyst of epididymis; Z13.9 Encounter for screening, unspecified
CPT/HCPCS: 99213; G2211

== ENCOUNTER → 2025-01-13 15:01 | Outpatient (BNVA) | payer MEDICARE, BC, OTHER, SELFPAY | PROVIDERS: PCP Internal Medicine Endocrinology, Diabetes & Metabolism; Visit Provider Nurse Practitioner Family | DX: N32.89 Other specified disorders of bladder (principal); R39.9 Unspecified symptoms and signs involving the genitourinary system; N40.1 Benign prostatic hyperplasia with lower urinary tract symptoms; R39.14 Feeling of incomplete bladder emptying; R33.9 Retention of urine, unspecified; N50.3 Cyst of epididymis; Z79.82 Long term (current) use of aspirin; Z79.899 Other long term (current) drug therapy | CPT/HCPCS: 51798; 81003; 99212 ==

== ENCOUNTER 2025-02-25 14:06 | Outpatient (REF) | payer MEDICARE, BC, OTHER, SELFPAY ==
--- NOTE | ~2025-02-25 | US_ITS ---
EXAMINATION: US SCROTUM CLINICAL INFORMATION: Cyst of scrotum. COMPARISON: None available. TECHNIQUE: A sonogram of the scrotum was performed assessing josue-scale appearance and color Doppler flow. Spectral Doppler analysis of the arterial and venous flow were performed in the testes bilaterally. FINDINGS: RIGHT: Right testicle measures 3.9 x 1.8 x 2.1 cm, volume 7.7 mL. No focal testicular parenchymal lesions are visualized. Spectral Doppler analysis of the arterial and venous flow is normal in the right testis. Right epididymal head is normal in size. There are small epididymal head cysts present, measuring up to 10 mm. There are calcifications in the right epididymal body, nonspecific. There is no varicocele. There is a small complex appearing right hydrocele present with thin septations and internal specular floating debris. Right epididymal Doppler flow is normal. LEFT: Left testicle measures 3.7 x 2.3 x 3.0 cm, volume 13.1 mL. No focal testicular parenchymal lesions are visualized. Spectral Doppler analysis of the arterial and venous flow is normal in the left testis. Left epididymal head is normal in size. There are numerous small epididymal head cysts present. There is tubular ectasia of the left epididymis. No left hydrocele or varicocele is seen. Left epididymal Doppler flow is normal. US/US scrotum IMPRESSION: 1. Normal testicles bilaterally. 2. Numerous epididymal cysts, left greater than right. There is tubular ectasia of the left epididymis. 3. Small mildly complex right hydrocele with small septations and internal specular debris. 4. No significant left hydrocele. 5. No definite varicocele. Electronically signed by: Desean Schaefer MD 02/25/2025 02:58 PM EDT
--- OUTSIDE RECORDS SUMMARY | 2025-02-25 15:26 | XMS_ITS | Continuity of Care Document ---
Author Name [facility] Organization [facility] Care Team Providers Care Shirt Folding Machine Operator Name Role Phone [facility] Unavailable Unavailable Immunizations Combined list of available immunizations from the Department of Defense and Veterans Affairs facilities. Immunization Series Date Given Administered By Site Reaction Lot Number CVX Code Drug Main Line Station Engineer Status Comments Source influenza virus vaccine, whole virus 1 1998 Unknown, Provider [id number] Valeria (WAL) complet ed influenza virus vaccine, whole virus DoD tuberculin skin test; purified protein derivative solution, intradermal 1 1998 Unknown, Provider [id number] Lisa (CON) complet ed tuberculi n skin test; purified protein derivativ e solution, intraderm al DoD typhoid vaccine, live, oral 1 1998 Unknown, Provider [id number] Harriet (BP) complet ed typhoid vaccine, live, oral DoD measles, mumps and rubella virus vaccine 2 1997 Unknown, Provider [id number] Jimenez (AB) complet ed measles, mumps and rubella virus vaccine DoD influenza virus vaccine, whole virus 2 1997 Unknown, Provider [id number] Lisa (CON) complet ed influenza virus vaccine, whole virus DoD tuberculin skin test; purified protein derivative solution, intradermal 1 1997 Unknown, Provider [id number] Lisa (CON) complet ed tuberculi n [...] vaccine, whole virus 1 1996 Unknown, Provider [id number] 16 Valeria (Inactive) ([place]) complet ed [...] 37 () complet ed yellow fever vaccine [facility] tetanus and diphtheria toxoids, adsorbed, preservative free, for adult use (2 Lf of tetanus toxoid and 2 Lf of diphtheria toxoid) 1 1992 Unknown, Provider 09 () complet ed tetanus and diphtheri a toxoids, adsorbed, preservat lyudmila free, for adult use (2 Lf of tetanus toxoid and 2 Lf of diphtheri a toxoid) [facility] trivalent poliovirus vaccine, live, oral 1 1962 Unknown, Provider 02 () complet trivalent polioviru s vaccine, live, oral [facility] Social History Combined list of available smoking, tobacco, and other social history from Department of Defense and Veterans Affairs facilities. Social History Type Response Date Comment [facility] e This section is an empty social history section. DoD
--- OUTSIDE RECORDS SUMMARY | 2025-02-25 15:27 | XMS_ITS | Encounter Summary ---
Author Organization [facility] Address [address] [place] [address] Phone Care Team Providers Care Sheet Pile Hammer Operator Name Role Phone Unavailable Primary Care Provider Unavailabl e Encounter Details Date Type Department Care Team (Late st Contact Info) Description 08/25/2023 Documentation Only [facility] [address] [place] [address] Xochitl Bee [place] [address] [place] [address] Social History Tobacco Use Types [...] Visit [facility] [address] [place] [address] Fernando Hubbard MD [address] [place] [address] documented as of this encounter Visit Diagnoses Not on filedocumented in this encounter
--- OUTSIDE RECORDS SUMMARY | 2025-02-25 15:27 | XMS_ITS | Clinical Summary ---
Author Organization [address] [place] [address] Address [address] [place] [address] Phone Care Team Providers Care Suspender Cutter Name Role Phone Corey Oneil MD Primary [...] panel; Future Chronic obstructive pulmonar y disease ([facility] V24, [facility] V28) 11/21/2016 Asthma 10/24/2016 Seasonal allergic rhinitis 08/22/2016 Encounters Date Type Department Care Team Description 01/15/2025 11:30 AM EDT Ancillary Procedure [facility] [address] [place] [phone] Nonrheumatic aortic valve stenosis; Essential hypertension; Coronary artery disease due to calcified coronary lesion 01/06/2025 2:30 PM EDT Office Visit Pulmonolgy - [place] [address] [place] [phone] Francie Collins MD Stage 4 very severe COPD by GOLD classification ([facility] V24, [facility] V28) (Primary Dx); Tobacco abuse from Last 3 Months Immunizations Name Administration Dates Next Due Influenza trivalent, 0.5mL (Fluad) 65yo and olde r 06/05/2017 Pfizer SARS-CoV-2 COVID-19, mRNA, LNP-S, preservative free 04/26/2021 Medical History Medical History Date Comments CAD (coronary artery disease) 05/08/2017 DX :CAD (coronary artery disease) Asthma 10/24/2016 DX:Asthma Chronic obstructive pulmonar y disease ([facility] V24, [facility] V28) 11/21/2016 DX:Chronic obstructive pulm onary disease [...] Sign Reading Time Taken Comments Blood Pressure 125/73 01/15/2025 2:14 PM EDT Pulse 85 01/06/2025 2:49 PM EDT Temperature 36.1 C (97 F) 01/06/2025 2:49 PM EDT Respiratory Rate 20 01/06/2025 2:49 PM EDT Oxygen Saturation 96% 01/06/2025 2:49 PM EDT Inhaled Oxygen Concentration - - Weight 48.1 kg (106 lb) 01/15/2025 2:14 PM EDT Height 160 cm (5' 3 ) 01/15/2025 2:14 PM EDT Body Mass Index 18.78 01/15/2025 2:14 PM EDT Plan of Treatment Upcoming Encounters Date Type Department Care Team (Late st Contact Info) Description 05/05/2025 3:00 PM EDT Office Visit Pulmonolgy - [place] [address] [place] [phone] Francie Collins MD [address] [place] [address] Health Maintenance Due Date Last Done Comments IPV Vaccines (2 of 3 - Adult catch-up series) 01/05/1963 12/08/1962 Zoster Vaccines (1 of 2) 1990 DTaP,Tdap,and Td Vaccines (2 - Td or Tdap) 03/20/2003 03/20/1993 Cholesterol Screening (Lipid Panel) 06/18/2022 [place] Risk Assessment 06/18/2022 Medicare Annual Wellness Visit 06/18/2022 Social Influencers of Health Screening 06/18/2022 COVID-19 Vaccine ( season) 2024 05/24/2022, 04/26/2021, 09/01/2020, Additional history exists Depression Screening 07/10/2024 Influenza Vaccine (#1) 2025 , 05/24/2022, 04/26/2021, [...] on patient's age to complete this topic Procedures Procedure Name Priority Date/Time Associated Diagnosis Comments TRANSTHORACIC ECHOCARDIOGRAM (TTE) COMPLETE Routine 01/15/2025 12:15 PM EDT Nonrheumatic aortic valve stenosis Essential hypertension Coronary artery disease due to calcified coronary lesion from Last 3 Months Results * (ABNORMAL) TRANSTHORACIC ECHOCARDIOGRAM (TTE) COMPLETE (01/15/2025 12:15 PM EDT) LV EDV (A2C) 57 mL CV PACS LV EDV (A4C) 71 mL CV PACS LV Diastolic Volume (BP) 64 62 - 150 mL CV PACS LV ESV (A2C) 34 mL CV PACS LV ESV (A4C) 32 mL CV PACS LV Systolic Volume (BP) 34 21 - 61 mL CV PACS IVSD 1.0 0.6 - 1.0 cm CV PACS LVIDD 3.8(A) 4.2 - 5.8 cm CV PACS LVIDS 2.8 2.5 - 4.0 cm CV PACS LVOT Diameter 2.0 cm CV PACS LVOT Mean Josef 1.0 m/s CV PACS LVOT Mean Grad 5 mmHg CV PACS LVOT Mean Grad 5 mmHg CV PACS LVOT Peak VTI 31.1 cm CV PACS LVOT Peak Josef 1.5 m/s CV PACS LVOT Peak Gradient 9 mmHg CV PACS LVPWD 1.0 0.6 - 1.0 cm CV PACS MV E' Tissue Velocity Lateral 6 cm/s CV PACS MV E' Tissue Velocity Septal 7 cm/s CV PACS Ejection Fraction (A2C) 41 % CV PACS Ejection Fraction (A4C) 56 % CV PACS Ejection Fraction (BP) 47 % CV PACS LVOT Area 3.1 cm2 CV PACS LVOT Stroke Volume 98 mL CV PACS Left Atrium Minor Morrill 5.8 cm CV PACS Left Atrium Major Morrill 5.6 cm CV PACS LA Area Sys (A2C) 23 cm2 CV PACS LA Area Sys (A4C) 18 cm2 CV PACS LA Volume (BP) 58 mL CV PACS LA Size 3.6 cm CV PACS RA Area 18.4 cm2 CV PACS RA 2D Volume 52 mL CV PACS AV Mean Gradient 11 mmHg CV PACS Ao VTI 49.3 cm CV PACS AV Peak Joesf 2.4 m/s CV PACS AV Peak Gradient 23 mmHg CV PACS AV Area Continuity Equation 2.0 cm2 CV PACS AV Area Peak Velocity 2.0 cm2 CV PACS Ascending Aorta 2.4 cm CV PACS IVC Proximal 1.8 cm CV PACS MV Deceleration [place] 3.0 m/s2 CV PACS E Wave Deceleration Time 284(A) 119 - 242 ms CV PACS MV PHT 82 ms CV PACS MV Peak A Josef 1.35 m/s CV PACS MV Peak E Josef 0.86 m/s CV PACS MV Mean Gradient 3 mmHg CV PACS MV VTI 36.5 cm CV PACS Mitral Valve Max Velocity 1.4 m/s CV PACS MV Peak Gradient 8 mmHg CV PACS MV Area PHT 2.7 cm2 CV PACS MV Area Continuity Equation 2.7 cm2 CV PACS PV Acceleration Time 148 ms CV PACS PV Acceleration Time 148 ms CV PACS PV Mean Gradient 1 mmHg CV PACS PV VTI 14.6 cm CV PACS PV Peak Velocity 0.8 m/s CV PACS PV Peak Gradient 3 mmHg CV PACS RV Diastolic Basal Dimension 4.6(A) 2.5 - 4.1 cm CV PACS RV S' 10 cm/s CV PACS TAPSE 25 mm CV PACS TR Peak Velocity 2.89 m/s CV PACS TR Peak Gradient 33 mmHg CV PACS E/E' Ratio Septal 12 CV PACS E/E' Ratio Averaged 13 CV PACS Relative Wall Thickness ratio 0.53 CV PACS LVOT:AV VTI Index 0.63 CV PACS FS 26 % CV PACS LV Mass 2D 117 g CV PACS MV VTI:LVOT VTI ratio 1.2 CV PACS LVOT flow 314 mL/s CV PACS AV Velocity Ratio 0.63 CV PACS E/A Ratio 0.6 CV PACS E/E' Ratio Lateral 14 CV PACS BSA 1.46 m2 CV PACS LV Diastolic Volume Index (BP) 43 34 - 74 mL/m2 CV PACS LV Systolic Volume Index (BP) 23 11 - 31 mL/m2 CV PACS LV EDV Index (A4C) 48 mL/m2 CV PACS LV ESV Index (A4C) 22 mL/m2 CV PACS LV EDV Index (A2C) 39 mL/m2 CV PACS LV ESV Index (A2C) 23 mL/m2 CV PACS LA Volume Index (BP) 39 mL/m2 CV PACS LVIDD Index 2.57 cm/m2 CV PACS LVIDS Index 1.89 cm/m2 CV PACS LV Mass Index 2D 79 50 - 102 g/m2 CV PACS LVOT Stroke Index 66 mL/m2 CV PACS LA Dimension Index 2D 2.4 cm/m2 CV PACS RA 2D Volume Index 35(A) 18 - 32 mL/m2 CV PACS MELLISSA Index (VTI) 1.34 cm2/m2 CV PACS MELLISSA Index (Pk Josef) 1.35 cm2/m2 CV PACS Ascending Aorta Index 1.62 cm/m2 CV PACS Right Ventricular Peak Systolic Pressure 36 mmHg CV PACS Est. RA Pressure 3 mmHg CV PACS Anatomical Region Laterality Modality Ultrasound Narrative 01/23/2025 9:50 AM EDT Left ventricle cavity size is normal. Left ventricular systolic function is mildly decreased with an ejection fraction of 45-50%. Mild LV global hypokinesis is present. Left ventricle wall thickness is normal. Right ventricle cavity is mildly enlarged. Right ventricular systolic function is normal. 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 Prosthetic valve appears well-seated and appears to be functioning normally with a gradient within the expected range. Compared to the echo from 2021, the LVEF appears similar. Left Ventricle Left ventricle cavity size is normal. Wall thickness is normal. Systolic function is mildly decreased with an ejection fraction of 45-50%. Mild global LV hypokinesis is present. Left atrial pressure is inconclusive. Right Ventricle Right ventricle cavity is mildly dilated. Systolic function is normal. Left Atrium Left atrium cavity is mildly dilated. Right Atrium Right atrium cavity is mildly dilated. IVC/SVC Inferior vena cava structure is normal. RA pressures is estimated to be 3 mmHg (IVC diameter <21 mm and decreases >50% during inspiration). Mitral Valve The leaflets are moderately thickened. There is mild annular calcification. There is trace regurgitation. There is no evidence of mitral valve stenosis. Tricuspid Valve Tricuspid valve structure is normal. There is no significant regurgitation. The RVSP is estimated at 36 mmHg. Aortic Valve The valve has been surgically replaced. There is a #23 Breonna S3 mm TAVR bioprosthetic valve. The prosthetic valve appears well-seated and appears to be functioning normally. There is trace regurgitation with a centrally directed jet. The gradient recorded across the prosthetic aortic valve is within the expected range. Pulmonic Valve There is mild pulmonic valve regurgitation. Ascending Aorta The aorta appears normal in size. Pericardium Pericardium appears normal. There is no pericardial effusion. Study Details Overall the study quality was adequate. Cardiac history: prosthetic valve. Robson Estrada MD CV ECHO PROCEDURES Final Result from Last 3 Months Insurance MEDICARE [facility] Care Teams Suspender Cutter Relationship Specialty Start Date End Date Corey Oneil MD [address] [place] [address] [address] [place] [address] PCP - General Endocrinology 05/13/17
--- OUTSIDE RECORDS SUMMARY | 2025-02-25 15:27 | XMS_ITS ---
Author Name [facility] Organization Unknown Care Team Organization Name Specialty Phone Email Start Date End Da te [facility] Termed, PROVIDER Primary Care 05/17/202202/07
--- OUTSIDE RECORDS SUMMARY | 2025-02-25 15:27 | XMS_ITS | Continuity of Care Document ---
Author Organization [facility] [address] [place] [address] Phone [phone] Problems Active Problems Provider Date Hyperlipidemia Corey [...] is a former smoker Smoking Status Reviewed: 01/28/25 Patient is a former smoker Allergies and adverse reactions Description No Known Drug Allergies Medications Active Medications SIG Qnty Indications Order ing Provider Date Trelegy Ctlicne873-14.5-25mcg /Act Aerosol 1 inhalation every day Corey Oneil M.D. 01/28/2025 [id number] Tablets 1 by mouth every day 90tabs Corey Oneil M.D. 08/02/2023 Terazosin HCL5mg Capsules take 1 capsule by mouth at bed 90caps Corey Oneil M.D. 08/02/[address] 1 by mouth every day Corey Oneil M.D. 04/25/2022 Albuterol Sulfate WRF885(90Base) mcg/Act Aerosol Inhale 2 Puffs Into The Lungs Every 4 Hours as Needed For Cough Or Wheezing Unknown [id number] Tablets Take 1 Tablet By Mouth Daily 90tabs Corey Oneil M.D. Atorvastatin Sgrtkyu58kn Tablets Take 1 Tablet By Mouth Daily Unknown Vital Signs Date Vital Result Comment 01/28/2025 2:35pm BP Systolic 110 mmHg BP Diastolic 70 mmHg Heart Rate 72 /min Height 65 inches 5'5 Weight 107.38 lb BMI (Body Mass Index) 17.9 kg/m2 Results Test Acquired Date Facility Test Result H/L Range Note TSH With Reflex To FT4 08/02/2023 [facility] TSH With Reflex To FT4 1.18 uIU/mL (0.4-4. 2) Urinalysis Complete 10/17/2022 [facility] Appear/Color LIGHT YELLOW 1 SP. Orange 1.016 (1.002- 1.030) Urine PH 6.0 (5.0-8. 0) Urine Albumin TRACE Abnormal (Neg) Urine Glucose NEGATIVE (Neg) Urine Ketones NEGATIVE (Neg) Urine Bilirubin NEGATIVE (Neg) Urine Hemoglobin NEGATIVE (Neg) Urine Nitrite NEGATIVE (Neg) Urine Leukocyte NEGATIVE (Neg) Urobilinogen NORMAL mg/dL (Norm) Urine WBCs 1 /HPF (0-5) Urine RBCs 1 /HPF (0-3) Complete Abc With Diff 10/17/2022 [facility] WBC 9.8 K/MM3 (4.0-11 .0) [...] 0) Lymph # 2.4 K/MM3 (0.8-3. 1) [place]# 1.0 K/MM3 (0.4-1. 3) Eo # 0.4 K/MM3 (0.0-0. 4) Baso # 0.1 K/MM3 (0.0-0. 1) Abs. Imm Gran 0.0 K/MM3 Neut 60.1 % (44-76) Lymph 24.9 % (15-43) Monocyte 10.2 % (4.5-10 .5) Eo 4.0 % (0-6) Baso 0.5 % (0-2) Imm Gran 0.3 % Comprehensive Metabolic Panl 10/17/2022 [facility] Glucose 90 mg/dL (70-99) 2 [...] 60 ML/MIN/1.7 3M2 3 Lipid Panel 10/17/2022 [facility] Cholesterol, Total 160 mg/dL (<200) Triglyceride 90 mg/dL (<150) 4 HDL Chol 66 mg/dL (>39) LDL Cholesterol, Calculated 76 mg/dL (0-130) Non HDL Cholesterol (Calc) 94 mg/dL (<160) TSH With Reflex To FT4 10/17/2022 [facility] TSH With Reflex To FT4 1.24 uIU/mL (0.4-4. 2) TSH With Reflex To FT4 04/27/2022 [facility] TSH With Reflex To FT4 <pending> 1 CLEAR 2 Patient not fasting 3 Creatinine based est imated glomerular filtration (eGFR) in adults is calculated using the [employer] recommended 2020 CKD-EPI equation. Estimates GFR from serum creatinine, age and sex. 4 Patient not fasting Medical Devices Description No Information Available Encounters Type Date Location Provider Dx Diagnosis Office Visit 01/28/2025 2:30p Main Office Corey Oneil M.D. I71.40 Abdominal aortic aneurysm, without rupture, unspecified F17.210 Nicotine dependence, cigarettes, uncomplicated J44.9 Chronic obstructive pulmonary disease, unspecified N40.0 Benign prostatic hyp erplasia without lower urinry tract symp I25.10 [place] heart disease [place] coronary artery w/o ang pctrs Assessments Date Code Description Provider 01/28/2025 I71.40 Abdominal aortic aneurysm Souleymane Oneil M.D. 01/28/2025 F17.210 Moderate cigarette smoker (1 0-19 cigs/day) Corey Oneil M.D. 01/28/2025 J44.9 Chronic obstructive lung dis ease Corey Oneil M.D. 01/28/2025 N40.0 Benign prostatic hyperplasia Corey Oneil M.D. 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 Plan of Treatment Future Appointment(s):* 08/05/2025 1:15 pm - Corey Oneil M.D. 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
== END 2025-02-25 14:07 | disposition home or self-care (01) ==
LOC: HO.US 14:06
PROVIDERS: PCP Internal Medicine Endocrinology, Diabetes & Metabolism; Visit Provider Nurse Practitioner Family
DX: L72.9 Follicular cyst of the skin and subcutaneous tissue, unspecified (principal)
CPT/HCPCS: 76870

== ENCOUNTER → 2025-02-25 14:08 | Outpatient (BNV) | payer MEDICARE, BC, OTHER, SELFPAY | PROVIDERS: PCP Internal Medicine Endocrinology, Diabetes & Metabolism; Visit Provider Radiology Diagnostic Radiology | DX: N50.3 Cyst of epididymis (principal) | CPT/HCPCS: 76870 ==

== ENCOUNTER 2025-04-22 14:41 | Outpatient (AMB) | payer MEDICARE, BC, OTHER, SELFPAY ==
--- NOTE | 2025-04-22 14:47 | A.OFFVIS_ITS ---
Intake Visit Reasons: /US Intake Note: Patient is present for / Urology Medication:TERAZOSIN,FINASTERIDE Antibiotic Allergy:NONE Blood Thinner:ASPIRIN Plate Keeper Required: No Allergies SEASONAL ALLERGIES Allergy (Unknown, Uncoded 04/22/25 21:31) Unknown Medication List - Last Reconciled 04/22/25 by ALICIA Sawyer- albuterol sulfate 90 mcg/actuation 2 inhalations inhalation Q4H PRN aspirin 81 mg PO DAILY atorvastatin 40 mg PO DAILY finasteride 5 mg PO DAILY fluticasone propion-salmeterol 250-50 mcg/dose 1 ea inhalation BID lisinopril 10 mg PO DAILY terazosin 5 mg PO BEDTIME 90 days HPI Comments Details: Romel is a very pleasant 84-year-old male patient of Dr. Oneil. He has a past medical history of COPD and hypercholesteremia. He presents to the office today for a follow up of his recurrent urinary tract infections, incomplete bladder emptying, scrotal discomfort, and lower urinary tract symptoms. In discussion with the patient today reports to be doing and feeling well. He reports compliance with finasteride every other day and terazosin as prescribed. He currently denies any bothersome urinary issues or concerns. Recent scrotal imaging results were reviewed with the patient today. 03/03 normal testicles bilaterally. Numerous epididymal cysts, left greater than right. Small mildly complex right hydrocele with small septations and interscapular debris. No significant left hydrocele per radiology report. He reports feeling pain is intermittent. We did discussed further treatment options to include surgical intervention verses in office drainage verses surveillance monitoring. We did discussed risks and benefits of these interventions. In office urinalysis results reviewed with the patient today the penis is circumcised. Bilateral epididymal head cysts palpated; left side greater than right. PSA 08/03 0.2. Previous workup has included microgen testing 09/30 that noted Klebsiella pneumoniae and patient has since completed levofloxacin 500 mg daily for 2 weeks as prescribed. Lasix renogram 08/[address] noted severe hydronephrosis with no obvious obstruction. Renogram noted Left kidney 15% and right kidney 85% of total renal uptake. Left kidney is enlarged with no evidence of obstruction however shows mild peripheral rim cortical perfusion. Presence or absence of underlying obstruction remain indeterminate related to poor renal function resulting in lack of excretion of radiotracer into the previously documented markedly dilated pelvicalyceal system. Right kidney normal perfusion. He discusses his continuation and follow-up with vascular, Cardiology, Nephrology, PCP, dermatology, and pulmonology for his ongoing medical issues. He denies urinary urgency, urinary frequency, incontinence, nocturia, hematuria, dysuria, foul smelling urine, flank pain, fever, and or chills. He is happy with his current voiding parameters. He discusses continuing to limit/quit his nicotine dependence. Labs are as follows BUN: 12/29 17, 05/01 32, 08/02 28, 09/02 19, 10/01 24, 10/02 27 Creatinine: 12/29 1.24, 05/01 1.35, 08/02 0.94, 09/02 1.01, 10/01 1.22, 10/01 1.10 PSA 09/02 0.6, 08/03 0.2 All questions were answered. He otherwise offers no other issues or concerns at this time. [facility] Medical History COPD (chronic obstructive pulmonary disease) Social History Patient Tobacco Use Status: Current everyday Tobacco user service: Yes Review of Systems Eyes Reports no additional complaints ENT Reports no additional complaints Card Reports as per HPI Resp Reports as per HPI GI Reports as per HPI Reports as per HPI Musc Reports no additional complaints Skin/Breast Reports as per HPI Neuro Reports no additional complaints Psych Reports no additional complaints Endo Reports no additional complaints Amrit/Lymph Reports no additional complaints Aller/Immun Reports no additional complaints Physical Exam Const General: cooperative, comfortable, no acute distress, well developed, alert and awake Nutritional Appearance: thin Orientation/consciousness: patient oriented x3 Limitations: ambulation with cane HEENT Head: Yes normal to inspection, Yes normocephalic and Yes atraumatic Ears: hearing grossly normal bilaterally Eyes General: appearance normal, both eyes and all related structures Neck Neck: Yes normal visual inspection and Yes trachea midline Chest Chest palpation & inspection: normal inspection of the chest Resp Effort & Inspection: normal respiratory effort and able to speak in complete sentences Cardio Rate: regular rate GI Inspection: Yes normal to inspection General: Yes no CVA tenderness Back/Spine/Pelvis Back: no CVA tenderness Skin General skin exam: no rashes or lesions noted Neuro General: patient oriented x3 Extrem General: Yes normal to inspection Psych Appearance: grossly normal and well kempt Mental Status: mental status grossly normal Speech and movement: Normal speech and movement present and Clear speech present Affect: normal affect Attitude: cooperative Thought process: Normal thought process present Thought content: Normal thought content present Insight: Fair insight present (Psych) Judgement: Fair judgement present (Psych) Results AMB Urinalysis, Automated UA Leukoctes 0 Dayana/uL Last Edit by Marion Membren[facility] on 04/22/25 15:10 UA Nitrite Negative Last Edit by Marion Membreno [facility] on 04/22/25 15:10 UA Urobilinogen 0.2 mg/dL Last Edit by Marion Membreno [facility] on 04/22/25 15:1 0 UA Protein 15 mg/dL Last Edit by Marion Membreno [facility] on 04/22/25 15:10 UA pH 6.0 Last Edit by Marion Membreno [facility] on 04/22/25 15:10 UA Blood 0 Giovanny/uL Last Edit by Marion Membreno [facility] on 04/22/25 15:10 UA Specific Cash 1.015 Last Edit by Marion Membreno [facility] on 04/22/25 15: 10 UA Ketone Negative Last Edit by Marion Membreno [facility] on 04/22/25 15:10 UA Bilirubin 0 mg/dL Last Edit by Marion Membreno [facility] on 04/22/25 15:10 UA Glucose 0 mg/dL Last Edit by Marion Membreno [facility] on 04/22/25 15:10 AMB Urinalysis, Automated UA Leukoctes 0 Dayana/uL Last Edit by Marion Membreno [facility] on 04/22/25 15:45 UA Nitrite Negative Last Edit by Marion Membreno [facility] on 04/22/25 15:45 UA Urobilinogen 0.2 mg/dL Last Edit by Marion Membreno [facility] on 04/22/25 15:4 5 UA Protein 15 mg/dL Last Edit by Marion Membreno [facility] on 04/22/25 15:45 UA pH 6.0 Last Edit by SHAYAN Atkins on 04/22/25 15:45 UA Blood 0 Giovanny/uL Last Edit by SHAYAN Atkins on 04/22/25 15:45 UA Specific Cash 1.015 Last Edit by SHAYAN Atkins on 04/22/25 15: 45 UA Ketone Negative Last Edit by SHAYAN Atkins on 04/22/25 15:45 UA Bilirubin 0 mg/dL Last Edit by SHAYAN Atkins on 04/22/25 15:45 UA Glucose 0 mg/dL Last Edit by SHAYAN Atkins on 04/22/25 15:45 Results Reviewed Results Reviewed: Laboratory Last Values Urine pH (Auto) 6.0 04/22/25 15:44 Specific Cash (Auto) 1.015 04/22/25 15:44 Urine Protein (Auto) 15 mg/dL 04/22/25 15:44 Glucose (UA)(Auto) 0 mg/dL 04/22/25 15:44 Urine Ketones (Auto) Negative 04/22/25 15:44 Urine Blood (Auto) 0 Giovanny/uL 04/22/25 15:44 Urine Nitrite (Auto) Negative 04/22/25 15:44 Urine Bilirubin (Auto) 0 mg/dL 04/22/25 15:44 Urine Urobilinogen (Auto) 0.2 mg/dL 04/22/25 15:44 Leukocyte Esterase (Auto) 0 Dayana/uL 04/22/25 15:44 Date of Service: 02/25/25 Procedure(s): US scrotum FINDINGS: RIGHT: Right testicle measures 3.9 x 1.8 x 2.1 cm, volume 7.7 mL. No focal testicular parenchymal lesions are visualized. Spectral Doppler analysis of the arterial and venous flow is normal in the right testis. Right epididymal head is normal in size. There are small epididymal head cysts present, measuring up to 10 mm. There are calcifications in the right epididymal body, nonspecific. There is no varicocele. There is a small complex appearing right hydrocele present with thin septations and internal specular floating debris. Right epididymal Doppler flow is normal. LEFT: Left testicle measures 3.7 x 2.3 x 3.0 cm, volume 13.1 mL. No focal testicular parenchymal lesions are visualized. Spectral Doppler analysis of the arterial and venous flow is normal in the left testis. Left epididymal head is normal in size. There are numerous small epididymal head cysts present. There is tubular ectasia of the left epididymis. No left hydrocele or varicocele is seen. Left epididymal Doppler flow is normal. IMPRESSION: 1. Normal testicles bilaterally. 2. Numerous epididymal cysts, left greater than right. There is tubular ectasia of the left epididymis. 3. Small mildly complex right hydrocele with small septations and internal specular debris. 4. No significant left hydrocele. 5. No definite varicocele. Assessment & Plan Assessment & Plan (1) Urinary retention: Code(s): R33.9 - Retention of urine, unspecified Category: Medical (2) Lower urinary tract symptoms: Code(s): R39.9 - Unspecified symptoms and signs involving the genitourinary system Category: Medical (3) Incomplete bladder emptying: Code(s): R33.9 - Retention of urine, unspecified Category: Medical (4) Bladder wall thickening: Code(s): N32.89 - Other specified disorders of bladder Category: Medical (5) Bladder trabeculation: Code(s): N32.89 - Other specified disorders of bladder Category: Medical (6) Urinary tract infection: Code(s): N39.0 - Urinary tract infection, site not specified Category: Medical (7) Enlarged prostate: Code(s): N40.0 - Benign prostatic hyperplasia without lower urinary tract symptoms Category: Medical (8) Epididymal cyst: Code(s): N50.3 - Cyst of epididymis Category: Medical (9) Hydrocele: Code(s): N43.3 - Hydrocele, unspecified Category: Medical Plan In office urinalysis results reviewed with the patient today; as noted above. Recent scrotal imaging results reviewed with the patient today; as noted above. Continue finasteride and terazosin as prescribed. He currently denies any bothersome urinary issues or concerns. He reports be happy with current voiding parameters. We discussed further treatment options of epididymal head cysts and hydrocele; we discussed risks and benefits of these interventions. All questions were answered. Will continue with surveillance monitoring at this time per patient request Follow-up in 6 months with PSA, BUN, creatinine and PVR; or sooner with any issues, concerns, and or questions. Orders: Orders AMB Urinalysis Automated Today Z13.9 - Encounter for screening, unspecified Blood Urea Nitrogen Today R39.15 - Urgency of urination AMB Urinalysis Automated Today Z13.9 - Encounter for screening, unspecified Prostate Specific Antigen 6 Months N40.0 - Benign prostatic hyperplasia without lower urinary tract symptoms Creatinine Today R39.15 - Urgency of urination Patient Instructions: The patient had an opportunity to ask questions regarding the treatment plan. All questions were answered. Physical exam, labs, and imaging were discussed and reviewed in detail. As well as risks, benefits, and discussion of treatment choices. No major barriers to understanding were identified. The patient expressed understanding and agreement with the above treatment plan. The patient was made aware they should contact our office by phone for worsening of their current condition, the appearance of new symptoms, or with any questions or concerns. Compliance is encouraged with any medications and follow up testing that is ordered. It is a privilege to be allowed the opportunity to participate in? your urological care.? Again, if you have any questions or concerns If you have any questions or concerns please do not hesitate to contact me. The office is [phone]. This note is constructed using voice recognition software. While every effort has been made to ensure accuracy traffic sign erection supervisor errors may have been included. Yours sincerely, JAMEY Sawyer Coding Level of Care Code Est Pt Level 3 (52235) Complex EM visit Add On G2211 Diagnoses Urinary retention R33.9 Lower urinary tract symptoms R39.9 Incomplete bladder emptying R33.9 Bladder wall thickening N32.89 Bladder trabeculation N32.89 Urinary tract infection N39.0 Enlarged prostate N40.0 Epididymal cyst N50.3 Hydrocele N43.3
--- OUTSIDE RECORDS SUMMARY | 2025-04-22 17:34 | XMS_ITS | Clinical Summary ---
Author Organization [address] [place] [address] Address [address] [place] [address] Phone Care Team Providers Care Manager Programs Name Role Phone Corey Oneil MD Primary [...] panel; Future Chronic obstructive pulmonar y disease ([facility] V24, [facility] V28) 11/21/2016 Asthma 10/24/2016 Seasonal allergic rhinitis 08/22/2016 Immunizations Immunization Administration Dates Next Due Influenza trivalent, 0.5mL (Fluad) 65yo and olde r 06/05/2017 Pfizer SARS-CoV-2 COVID-19, mRNA, LNP-S, preservative free 04/26/2021 Medical History Medical History Date Comments CAD (coronary artery disease) 05/08/2017 DX :CAD (coronary artery disease) Asthma 10/24/2016 DX:Asthma Chronic obstructive pulmonar y disease ([facility] V24, [facility] V28) 11/21/2016 DX:Chronic obstructive pulm onary disease [...] Description 05/05/2025 3:00 PM EDT Office Visit Pulmonology - [place] [address] [facility] [place] [id number] Francie Collins MD [address] [place] [address] Health Maintenance Due Date Last Done Comments IPV Vaccines (2 of 3 - Adult catch-up series) 01/05/1963 12/08/1962 Zoster Vaccines (1 of 2) 1990 DTaP,Tdap,and Td Vaccines (2 - Td or Tdap) 03/20/2003 03/20/1993 Cholesterol Screening (Lipid Panel) 06/18/2022 Falls Risk Assessment 06/18/2022 Medicare Annual Wellness Visit 06/18/2022 Social Influencers of Health Screening 06/18/2022 Depression Screening 07/10/2024 COVID-19 Vaccine ( season) 2025 05/24/2022, 04/26/2021, 09/01/2020, Additional history exists Influenza [...] age to complete this topic Insurance MEDICARE [facility] Care Teams Manager Programs Relationship Specialty Start Date End Date Corey Oneil MD [address] [place] [address] [address] [place] [address] PCP - General Endocrinology 05/13/17
--- OUTSIDE RECORDS SUMMARY | 2025-04-22 17:34 | XMS_ITS | Continuity of Care Document ---
Author Organization [facility] [address] [place] [address] Phone [phone] Problems Active Problems Provider Date Hyperlipidemia Corey [...] Qnty Indications Order ing Provider Date Trelegy Ozbjalc471-95.5-25mcg /Act Aerosol 1 inhalation every day Corey Oneil M.D. 01/28/2025 [id number] Tablets 1 by mouth every day 90tabs Corey Oneil M.D. 08/02/2023 Terazosin HCL5mg Capsules take 1 capsule by mouth at bed 90caps Corey Oneil M.D. 08/02/[address] 1 by mouth every day Corey Oneil M.D. 04/25/2022 Albuterol Sulfate VYS633(90Base) mcg/Act Aerosol Inhale 2 Puffs Into The Lungs Every 4 Hours as Needed For Cough Or Wheezing Unknown [id number] Tablets Take 1 Tablet By Mouth Daily 90tabs Corey Oneil M.D. Atorvastatin Khdkwmc22io Tablets Take 1 Tablet By Mouth Daily Unknown Vital Signs Date Vital Result Comment 01/28/2025 2:35pm BP Systolic 110 mmHg BP Diastolic 70 mmHg Heart Rate 72 /min Height 65 inches 5'5 Weight 107.38 lb BMI (Body Mass Index) 17.9 kg/m2 Results Test Acquired Date Facility Test Result H/L Range Note TSH With Reflex To FT4 08/02/2023 [facility] TSH With Reflex To FT4 1.18 uIU/mL (0.4-4. 2) Urinalysis Complete 10/17/2022 [facility] Appear/Color LIGHT YELLOW 1 SP. [place] 1.016 (1.002- 1.030) Urine PH 6.0 (5.0-8. 0) Urine Albumin TRACE Abnormal (Neg) Urine Glucose NEGATIVE (Neg) Urine Ketones NEGATIVE (Neg) Urine Bilirubin NEGATIVE (Neg) Urine Hemoglobin NEGATIVE (Neg) Urine Nitrite NEGATIVE (Neg) Urine Leukocyte NEGATIVE (Neg) Urobilinogen NORMAL mg/dL (Norm) Urine WBCs 1 /HPF (0-5) Urine RBCs 1 /HPF (0-3) Complete Abc With Diff 10/17/2022 [facility] WBC 9.8 K/MM3 (4.0-11 .0) [...] 0) Lymph # 2.4 K/MM3 (0.8-3. 1) [place]# 1.0 K/MM3 (0.4-1. 3) Eo # 0.4 K/MM3 (0.0-0. 4) Baso # 0.1 K/MM3 (0.0-0. 1) Abs. Imm Gran 0.0 K/MM3 Neut 60.1 % (44-76) Lymph 24.9 % (15-43) Monocyte 10.2 % (4.5-10 .5) Eo 4.0 % (0-6) Baso 0.5 % (0-2) Imm Gran 0.3 % Comprehensive Metabolic Panl 10/17/2022 [facility] Glucose 90 mg/dL (70-99) 2 [...] 60 ML/MIN/1.7 3M2 3 Lipid Panel 10/17/2022 [facility] Cholesterol, Total 160 mg/dL (<200) Triglyceride 90 mg/dL (<150) 4 HDL Chol 66 mg/dL (>39) LDL Cholesterol, Calculated 76 mg/dL (0-130) Non HDL Cholesterol (Calc) 94 mg/dL (<160) TSH With Reflex To FT4 10/17/2022 [facility] TSH With Reflex To FT4 1.24 uIU/mL (0.4-4. 2) TSH With Reflex To FT4 04/27/2022 [facility] TSH With Reflex To FT4 [...] tract symp I25.10 Athscl heart disease of [place] coronary artery w/o ang pctrs Assessments Date Code Description Provider 01/28/2025 I71.40 Abdominal aortic aneurysm Souleymane Oneil M.D. 01/28/2025 F17.210 Moderate cigarette smoker (1 0-19 cigs/day) Corey Oneil M.D. 01/28/2025 J44.9 Chronic obstructive lung dis ease Corey Oneil M.D. 01/28/2025 N40.0 Benign prostatic hyperplasia Corey Oneil M.D. 01/28/2025 I25.10 Atherosclerotic heart disease of [place] coronary artery without angina pectoris Corey Oneil M.D. Plan of Treatment Future Appointment(s):* 08/05/2025 1:15 pm - Corey Oneil M.D. at Main Office 01/28/2025 - Corey Oneil M.D.* I71.40 Abdominal aortic aneurysm * F17.210 Moderate cigarette smoker (10-19 cigs/day) * J44.9 Chronic obstructive lung disease * N40.0 Benign prostatic hyperplasia * I25.10 Atherosclerotic heart disease of [place] coronary artery without angina pectoris * Functional Status Description No Information Available Mental Status Description No Information Available Referrals Refer to Reason for Referral Status Appt Fina Tamayo MD TRIGGER FINGER RIGHT SECO ND FINGER Closed 05/28/[address] [place] [address] [phone] [facility] 4.3 CM AORTIC ANEURYSM Closed 09/05/20[address] [place] [address] [phone]
== END 2025-04-22 15:30 | disposition home or self-care (01) ==
LOC: HO.HUSH 14:41
PROVIDERS: PCP Internal Medicine Endocrinology, Diabetes & Metabolism; Visit Provider Nurse Practitioner Family
DX: R33.9 Retention of urine, unspecified (principal); R39.9 Unspecified symptoms and signs involving the genitourinary system; N32.89 Other specified disorders of bladder; N39.0 Urinary tract infection, site not specified; N40.0 Benign prostatic hyperplasia without lower urinary tract symptoms; N50.3 Cyst of epididymis; N43.3 Hydrocele, unspecified; Z13.9 Encounter for screening, unspecified
CPT/HCPCS: 99213; G2211

== ENCOUNTER → 2025-04-22 14:41 | Outpatient (BNVA) | payer MEDICARE, BC, OTHER, SELFPAY | PROVIDERS: PCP Internal Medicine Endocrinology, Diabetes & Metabolism; Visit Provider Nurse Practitioner Family | DX: N40.0 Benign prostatic hyperplasia without lower urinary tract symptoms (principal); R33.9 Retention of urine, unspecified; R39.9 Unspecified symptoms and signs involving the genitourinary system; N32.89 Other specified disorders of bladder; N43.3 Hydrocele, unspecified; N50.3 Cyst of epididymis | CPT/HCPCS: 81003; 99212 ==